=== PATIENT | female | born 1975 | race Caucasian/White ===

== ENCOUNTER → 2023-04-30 | Outpatient (CLI) | payer MEDICARE, MEDICAID, SELFPAY ==
[2023-04-30 17:41] LABS: Hematocrit 37.4 % (37-47); Hemoglobin 11.5 g/dL (12.0-15.0); Mean Corp Hgb Conc 30.7 g/dL (32-36); Mean Corpuscular Hgb 27.9 pg (27.0-32.0); Mean Corpuscular Volume 90.8 fL (81-99); Mean Platelet Vol. 10.7 fl (6.2-12.0); Platelet Count 368 K/mm3 (150-450); RBC Distribution Width CV 14.3 % (11.6-14.6); Red Blood Count 4.12 M/mm3 (4.2-5.4); White Blood Count 4.8 K/mm3 (4.4-11.0)
[2023-04-30 18:12] LABS: ALB/GLOB Ratio 0.8 RATIO (0.9-2.4); AST(SGOT) 9 U/L (15-37); Alanine Aminotransfer ALT/SGPT 17 U/L (13-56); Albumin, Serum 3.3 g/dL (3.2-5.0); Alkaline Phosphatase 70 U/L (45-117); Anion Gap 3 (5-15); BUN 8 mg/dL (7-18); BUN/Creat Ratio 10.9 RATIO (10-20); CPK Total, Creatine Kinase 81 U/L (26-192); Calcium,Total 8.8 mg/dL (8.5-10.1); Chloride 109 mmol/L (98-107); Creatinine, Serum 0.73 mg/dL (0.55-1.02); EST Glomerular Filtration Rate 90 mL/min (>60); Est Glom Filt Rate - Afr Amer 109 mL/min (>60); Free T3 2.6 pg/mL (2.18-3.98); Glucose 108 mg/dL (74-106); Magnesium 2.2 mg/dL (1.6-2.6); Potassium 4.2 mmol/L (3.5-5.1); Protein, Total 7.3 g/dL (6.4-8.2); Sodium Level 138 mmol/L (136-145); T4 Free Direct 0.72 ng/dL (0.76-1.46); Thyroid Stim Hormone (TSH) 0.77 uIU/mL (0.358-3.74)
[2023-04-30 18:35] LABS: Vitamin B12 323 pg/mL (211-911)
[2023-05-03 12:09] LABS: Vitamin D 1,25-Dihydroxy 81.4 pg/mL (24.8-81.5)
[2023-05-03 19:07] LABS: Myoglobin, Serum 26 ng/mL (25-58)
== END | disposition home or self-care (01) ==
LOC: MTLAB 16:38
PROVIDERS: Referring Provider Psychiatry & Neurology Neurology; Visit Provider Psychiatry & Neurology Neurology
DX: R25.2 Cramp and spasm (principal); R26.9 Unspecified abnormalities of gait and mobility; R53.83 Other fatigue
CPT/HCPCS: 36415; 80053; 82550; 82607; 82652; 82746; 83735; 83874; 84425; 84439; 84443; 84481; 85027; 86140

== ENCOUNTER → 2023-06-19 | Outpatient (CLI) | payer MEDICARE, MEDICAID, SELFPAY ==
--- NOTE | 2023-06-19 13:22 | MRI_ITS ---
EXAM: MR LUMBAR SPINE WITHOUT INTRAVENOUS CONTRAST CLINICAL INDICATION: evaluate gait disorder TECHNIQUE: Multiplanar and multisequence MR images of the lumbar spine without intravenous contrast. COMPARISON: None. FINDINGS: VERTEBRAE: Unremarkable. Vertebral body heights are preserved. Normal vertebral bodies and posterior elements. Normal alignment. No spondylolisthesis. There is preservation of the normal lumbar lordosis. SPINAL CORD: Unremarkable. Normal position and signal intensity of the conus medullaris. SOFT TISSUES: Unremarkable. DISCS/SPINAL CANAL/NEURAL FORAMINA: T12-L1: Normal disc height and morphology. Normal bilateral facet joints. Normal central canal. Normal bilateral lateral recesses. Normal intervertebral neural foramina. L1-2: Normal disc height and morphology. Normal bilateral facet joints. Normal central canal. Normal bilateral lateral recesses. Normal intervertebral neural foramina. L2-3: Disc dehydration. Small, central, noncompressive disc protrusion. No canal or foraminal stenosis. L3-4: Disc dehydration. Normal bilateral facet joints. Normal central canal. Normal bilateral lateral recesses. Normal intervertebral neural foramina. L4-5: Disc dehydration and mild disc space narrowing. Mild, noncompressive spondylotic bar. Normal bilateral facet joints. Normal central canal. Normal bilateral lateral recesses. Normal intervertebral neural foramina. L5-S1: Disc dehydration. Left paracentral annular fissure. Normal bilateral facet joints. Normal central canal. Normal bilateral lateral recesses. Normal intervertebral neural foramina. MRI/Spine Lumbar (Routine) IMPRESSION: Noncompressive L2-3 disc protrusion. L5-S1 annular fissure. Electronically Signed: Bell Villavicencio MD at 18:33 EST Reading Location ID and State: [id number] / Tel , Service support ,
--- NOTE | 2023-06-19 14:02 | MRI_ITS ---
INDICATION: evaluate for multiple sclerosis EXAMINATION: MRI - MR Brain WO/W Contrast TECHNIQUE: Multiplanar and multisequence MR images of the brain were obtained without and with gadolinium. IV Contrast Dosage and Agent: clariscan 19ml iv COMPARISON: None. FINDINGS: BRAIN AND EXTRA-AXIAL SPACES: No intracranial mass, mass effect, or midline shift. No hemorrhage, territorial infarct or acute ischemia. White matter is unremarkable. No evidence of demyelination. Ventricles are normal in size. Basal cisterns are unremarkable. SELLA: Pituitary gland is normal in height. Signal hyperintensity in the posterior pituitary gland is consistent with normal neural hypophysis. AUDITORY SYSTEM: Unremarkable. BONES/JOINTS: Unremarkable. SINUSES: Unremarkable as visualized. Clear. MASTOID AIR CELLS: Unremarkable as visualized. Clear. ORBITS: Unremarkable as visualized. VASCULATURE: Normal flow voids in the major intracranial circulation. MRI/Brain W/WO Contrast IMPRESSION: Negative contrast enhanced MRI brain. Electronically Signed: Bell Villavicencio MD at 17:01 EST Reading Location ID and State: [id number] / Tel , Service support ,
== END | disposition home or self-care (01) ==
LOC: MRI 13:17
PROVIDERS: Referring Provider Psychiatry & Neurology Neurology; Visit Provider Psychiatry & Neurology Neurology
DX: R26.9 Unspecified abnormalities of gait and mobility (principal)
CPT/HCPCS: 70553; 72148; A9575

== ENCOUNTER → 2023-07-01 | Outpatient (CLI) | payer MEDICARE, MEDICAID, SELFPAY ==
--- NOTE | 2023-07-01 | CYSPIN_PTH ---
PATHOLOGY RESULTS PATIENT: SHRAVAN DAVENPORT LOC: [facility] U#:[id number] AGE/SX: 47/F ROOM: RE07/01/[address]: Dr. Leonardo Roberson MD : 1975 BED: DIS: 07/01/2023 SPEC #: [id number] RECD: 07/01/23 11:36 STATUS: CHASITY QUINONES #: [id number] KIM: 07/01/23 00:[address]: Leonardo Roberson DEPT: CYTOLOGY RECD BY: Sole Albarado ENTERED: 07/01/23 11:39 SP TYPE: CYSPIN FL OTHR DR: No Primary Care Phys Tissues: Cerebrospinal Fluid Procedures: Pap Stain (control) Special Stain Group II Cytospin Fluid HEADER OPERATION: Not noted PRE-OP DIAGNOSIS: Abnormalities of gait and mobility TISSUE SUBMITTED: Cerebrospinal fluid for cytology DIAGNOSIS CYTOLOGY Cerebrospinal fluid for cytology (cytospin): Paucicellular specimen, rare lymphocytes and benign lining epithelial cells are noted. SJ:foster 07/01/2023 COMMENT Case has been reviewed in consultation with Dr. Guzman who concurs with the above diagnosis. IDC:AM CYTOLOGY STUDY Slides are reviewed. CYTOLOGY GROSS Received is 2 ml of clear fluid labeled with the patient's name and and designated per the requisition as CSF. Submitted for cytology preparation. / foster 07/01/2023 TC:4 CPT: 41137
--- NOTE | 2023-07-01 09:03 | RAD_ITS ---
PROCEDURE: Fluoroscopic guided Lumbar Puncture. DATE: July 01, 2023. CLINICAL INDICATION: Gait abnormalities. PHYSICIAN: Lazaro Ford M.D. MEDICATIONS: 1% lidocaine administered subcutaneously for local anesthesia. ACCESS SITE: Lower posterior back. NEEDLE: 22-gauge spinal needle. SPECIMEN: Approximately 12 mL clear]CSF fluid. FLUOROSCOPY TIME (if supplied): (1:07) minutes/seconds. 28.01 mGy COMPLICATIONS: None immediate. The risks, benefits, and alternatives to the procedure were explained to the patient. The specific risks of bleeding, infection, and neurovascular injury were detailed and accepted. Witnessed informed consent was obtained. The patient was placed on the fluoroscopic table in the prone position. The level for needle entry was determined and marked. The overlying skin was cleaned and prepped in the usual sterile fashion. 2% lidocaine was administered subcutaneously for local anesthesia. Under fluoroscopic guidance a 22-gauge spinal needle was advanced. The thecal sac was entered at the L3- L4 vertebral level. The inner stylet was removed. There was spontaneous flow of clear CSF fluid. The patient was placed in a reversed Trendelenburg position. Approximately 12 mL of cerebrospinal fluid was collected using gravity. The specimen was collected and submitted to the laboratory for further evaluation. The needle was withdrawn,. Hemostasis was achieved and a sterile dressing placed. The patient tolerated the procedure well without any immediate complications. The patient was placed supine with head elevated and returned to the floor in stable condition. RAD/Dx Lumbar Puncture w/IMG Guide IMPRESSION: Successful fluoroscopic-guided lumbar puncture. Electronically Signed: Lazaro Ford MD at 13:04 EST ,
--- OUTSIDE RECORDS SUMMARY | 2023-07-01 09:11 | XMS RPT_ITS | CCD ---
Author Name Unknown Address [address] [place] [address] Organization [facility] Care Team Providers [employer] Name Role Phone No, Physician Unavailable Unavailable Lm Rae Admitting Unavailable Lm Rae Attending Unavailable Baddosandrine, Leonardo Almendarez Admitting Unavailable Baddour, Leonardo Almendarez Attending Unavailable Baddour, Leonardo Almendarez Admitting Unavailable Baddour, Leonardo Almendarez Attending Unavailable Baddosandrine, Leonardo Almendarez Admitting Unavailable Baddour, Leonardo Almendarez Attending Unavailable Baddour, Leonardo Almendarez Admitting Unavailable Baddour, Leonardo Almendarez Attending Unavailable Baddosandrine, Leonardo Almendarez Admitting Unavailable Baddosandrine, Leonardo Almendarez Attending Unavailable Jonatan Gordillo Admitting Unavailable Jonatan Gordillo Attending Unavailable Fortune, Jeaneth Osborne Admitting Unavailable Fortune, Jeaneth Osborne Attending Unavailable No, Physician Primary Care Provider UnavailLeonardo Figueroa Primary Care Provider Eun Bar Primary Care Provider DIPIKAEUN POND Primary Care Unavailable [facility] Eun SNYDER Primary Care Provider Mitali Liao MD Unavailable Nohemi Flores MD Unavailable Fer BREWER DO, W. Don Unavailable [phone] Leonardo Roberson MD Unavailable [phone] Karlo Doherty Jr. Primary Care Provide r Shawn Pickens Unavailable Leonardo Roberson MD Unavailable [phone] Abigail Perez DO Unavailable Leonardo Roberson MD Unavailable Santos PAGE, Stefan Unavailable [facility] Primary Care Provider [phone] Nelia PAGE, Shawn Unavailable Chas Thomas DO, David G Unavailable Mitali Liao MD Unavailable Nohemi Flores MD Unavailable Fer BREWER DO, W. Don Unavailable Leonardo Roberson MD Unavailable Chas Thomas DO, David Grant Primary Care Pro vider Stefan Graham MD Unavailable Nelia PGAE, Shawn Unavailable Karlo Doherty Jr. Primary Care Provide r Joshua Pickensa M Unavailable Leonardo Roberson MD Unavailable Abigail Perez DO Unavailable [phone] Leonardo Roberson MD Unavailable [phone] Stefan Graham MD Unavailable [facility] Primary Care Provider Nelia PAGE, Shawn Unavailable Chas Thomas DO, David G Unavailable [phone] Stefan Graham MD H Unavailable [phone] ABIGAIL PEREZ Referring Unavailabl KARLO Fletcher JR Primary Care Unava ilable ABIGAIL PEREZ Attending Unavailabl e ABIGAIL PEREZ Referring Unavailabl e KARLO DOHERTY JR Primary Care Unava ilable KARLO DOHERTY JR Primary Care Unava ilable BRITNEY ZAMUDIO Referring Unavailable ABIGAIL PEREZ Attending Unavailabl BRYCE Rausch Primary Care Unavailabl e GOTA, BRITNEY E Referring Unavailable JOJO MCKEON Referring Unavailable MATEOHANNASANDER , KARLO RYAN Primary Care Unava ilable STAINBROOK JR, KARLO SHELBY Primary Care Unava ilable STAINBROOK JR, KARLO SHELBY Primary Care Unava ilable ABIGAIL PEREZ Referring Unavailabl e COURSON, ABIGAIL MATHEW Referring Unavailabl e STAINBROOK JR, KARLO SHELBY Primary Care Unava ilable ABIGAIL PEREZ Referring Unavailabl e ELEUTERIO HARDY Attending Unavailable MATEOHANNAGA , KARLO SHELBY Primary Care Unava ilable Pending, Provider Primary Care Unavailable Deena Ramírez Attending Unavaila ble DIPIKA, EUN Referring Unavailable GHALIBJOSHUAA Attending Unavailable DIPIKA, EUN Primary Care Unavailable ALYSHA BARKSDALE Attending Unavailable ALYSHA BARKSDALE Referring Unavailable DIPIKA, EUN Primary Care Unavailable GHALIB, SHAWN Attending Unavailable GHALIB, SHAWN Referring Unavailable DIPIKA, EUN Primary Care Unavailable GONZALEZ TAYLOR Attending Unavailable GHALIB, SHAWN Referring Unavailable DIPIKA, EUN Primary Care Unavailable DIPIKA, EUN Primary Care Unavailable GHALIB, SHAWN Attending Unavailable DIPIKA, EUN Primary Care Unavailable SELF, SELF Referring Unavailable DIPIKA, EUN Primary Care Unavailable SACHI NUÑEZ Attending Unavailable SACHI NUÑEZ Referring Unavailable MITALI IBARRA Attending Unavailable DIPIKA, EUN Primary Care Unavailable MITALI IBARRA Referring Unavailable DIPIKA, EUN Primary Care Unavailable DEENA RAMÍREZ Attending Unavailable MITALI IBARRA Referring Unavailable DIPIKA, EUN Primary Care Unavailable SHAUNA CALDERON Attending Unavailable SHAUNA CALDERON Referring Unavailable DIPIKA, EUN Primary Care Unavailable MITALI IBARRA Referring Unavailable MITALI IBARRA Attending Unavailable MARION KOROMA Attending Unavailable DIPIKA, EUN Primary Care Unavailable SELF, SELF Referring Unavailable MARION KOROMA Attending Unavailable MARION KOROMA Referring Unavailable DIPIKA, EUN Primary Care Unavailable KARLO DOHERTY JR, JR Referring Unavaila ble DIPIKA, EUN Primary Care Unavailable CHAS RIVERO JR, KARLO Attending Unavaila ble DIPIKA, EUN Primary Care Unavailable SELF, SELF Referring Unavailable KARLO DOHERTY JR, JR Attending Unavaila ble AMURAO, SABINO Referring Unavailable DIPIKA, EUN Primary Care Unavailable MITALI IBARRA Attending Unavailable DIPIKA, EUN Primary Care Unavailable MITALI IBARRA Attending Unavailable MITALI IBARRA Referring Unavailable DIPIKA, EUN Primary Care Unavailable KARLO DOHERTY JR, JR Attending Unavaila ble KARLO DOHERTY JR, JR Referring Unavaila ble DIPIKA, EUN Primary Care Unavailable MITALI IBARRA Attending Unavailable DIPIKA, EUN Primary Care Unavailable MITALI IBARRA Referring Unavailable Yanni PAGE, Mitali Barreto Unavailable [phone] Nohemi Flores MD Unavailable Fer BREWER DO, W. Don Unavailable [phone] Leonardo Roberson MD Unavailable [phone] No, Physician Primary Care Provider UnavailLeonardo Figueroa MD Unavailable Stefan Graham MD [facility] Provider Nelia PAGE, Shawn Unavailable Chas Thomas DO, David G Unavailable [phone] NO, PHYSICIAN Primary Care Unavailable MTIALI LIAO Attending Unavailable MAURY CASTILLO Attending Unavailab courtney RIVERA, PHYSICIAN Primary Care Unavailable NO, PHYSICIAN Primary Care Unavailable ARUNA QUINONES Attending Unavailable KOBY HECTOR Attending Unavailable NO, PHYSICIAN Primary Care Unavailable PUJA LO Attending Unavailludin limon NO, PHYSICIAN Primary Care Unavailable MAURY CASTILLO Attending Unavailab MAURY Anderson Admitting Unavailab courtney RIVERA, PHYSICIAN Primary Care Unavailable Allergies Allergy Classification Reported Allergen(s) Allergy Type Date of Onset Reaction(s) Facility (6 sources) Azithromycin Drug Allergy 02-19-2022 [facility] Medications Current Medications Medication Drug Class(es) Dates Sig (Normalized) Sig (Original) acetaminophen 325 mg / HYDROcodone bitartrate 5 mg oral tablet (4 sources) Opioid Agonist Start: 11-05-2018 End: 11-12-2018 take 1 tablet by mouth every six hours as needed for pain, then take 5 tablets by mouth as needed for pain HYDROcodone-acetam inophen (NORCO) 5-325 mg per tablet Indications: Chronic tonsillitis Take 1 (one) tablet by mouth every 6 (six) hours as needed for pain (Days supply per fill: 5) Post operative pain management . 20 tablet 0 11/05/2018 11/12/2018 Active Completed/Discontinued Medications Medication Drug Class(es) Dates Sig (Normalized) Sig (Original) acetylcholine 10% solution - [facility] (4 sources) Start: 07-21-2021 acetylcholine 10% solution - [facility] ALPRAZolam 1 mg oral tablet (9 sources) Benzodiazepine End: 10-16-2018 take 1 tablet by mouth twice daily ALPRAZolam (XANAX) 1 MG tablet Take 1 mg by mouth 2 (two) times a day 0 10/16/2018 Discontinued azithromycin 250 mg oral tablet (5 sources) Macrolide Antimicrobial Start: 09-19-2021 azithromycin (ZITHROMAX) 250 mg tablet Take by mouth as directed. TAKE 2 TABLETS BY MOUTH TODAY, THEN TAKE 1 TABLET DAILY FOR 4 DAYS 0 09/19/2021 Active Problems Active Problems Problem Classification Problem Date Documented Date Episodic/Chronic Acute and chronic tonsillitis (20 sources) Chronic tonsillitis; Translations: [Chronic tonsillitis] Onset: 08-18-19 19 08-18-2018 Chronic Allergic reactions (1 source) Allergic bronchopulmonary aspergillosis; Translations: [Allergic bronchopulmonary aspergillosis] Chronic Anxiety disorders (7 sources) Anxiety disorder; Translations: [Anxiety disorder, unspecified] Onset: 05-20-20 18 05-20-2018 Chronic Asthma (11 sources) Asthmatic bronchitis; Translations: [Unspecified asthma, uncomplicated] Onset: 11-30-19 Chronic Cardiac dysrhythmias (1 source) Supraventricular tachycardia; Translations: [Supraventricular tachycardia] Chronic Chronic obstructive pulmonary disease and bronchiectasis (1 source) Acute exacerbation of chronic obstructive airways disease; Translations: [Chronic obstructive pulmonary disease with (acute) exacerbation] Chronic Complication of device; implant or graft (1 source) Leakage of breast implant; Translations: [Leakage of breast prosthesis and implant, initial encounter] 02-20-2023 Episodic Deficiency and other anemia (1 source) Iron deficiency anemia; Translations: [Other iron deficiency anemias] Episodic Disorders of lipid metabolism (20 sources) Hyperlipidemia; Translations: [Hyperlipidemia, unspecified] Onset: 07-04-19 21 07-04-2020 Chronic Esophageal disorders (1 source) Gastroesophageal reflux disease; Translations: [Gastroesophageal reflux disease, esophagitis presence not specified] Chronic Gastrointestinal hemorrhage (1 source) Rectal hemorrhage; Translations: [Rectal bleeding] Episodic Genitourinary symptoms and ill-defined conditions (5 sources) Delay when starting to pass urine; Translations: [Hesitancy of micturition] Onset: 11-27-19 Episodic Immunizations and screening for infectious disease (1 source) Viral screening status; Translations: [Encounter for screening for other viral diseases] Episodic Inflammation; infection of eye (except that caused by tuberculosis or sexually transmitteddisease) (7 sources) Bilateral punctate keratitis of eyes; Translations: [Punctate keratitis, bilateral] Onset: 12-04-19 19 12-03-2018 Chronic Miscellaneous mental health disorders (1 source) Crying; Translations: [Other symptoms and signs involving emotional state] Episodic Mood disorders (17 sources) Depressive disorder; Translations: [Major depressive disorder, single episode, unspecified] Onset: 03-06-20 21 03-06-2021 Chronic Mycoses (1 source) Candidiasis; Translations: [Candidiasis, unspecified] Episodic Nutritional deficiencies (20 sources) 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; Translations: [Adult osteomalacia due to malabsorption] Onset: 02-23-20 Chronic Osteoarthritis (20 sources) Bilateral osteoarthritis of feet; Translations: [Primary osteoarthritis, right ankle and foot] Onset: 07-04-19 22 07-04-2021 Chronic Other and unspecified benign neoplasm (4 sources) Benign neoplasm of pituitary gland and craniopharyngeal duct; Translations: [Benign neoplasm of pituitary gland and craniopharyngeal duct (pouch) (HCC)] Episodic Other bone disease and musculoskeletal deformities (1 source) Lesion of bone of right hand; Translations: [Disorder of bone, unspecified] Episodic Other circulatory disease (16 sources) Raynaud's disease; Translations: [Raynaud's syndrome without gangrene] Onset: 07-04-19 22 07-04-2021 Chronic Other circulatory disease (1 source) Acrocyanosis; Translations: [Other specified peripheral vascular diseases] Chronic Other circulatory disease (1 source) Other specified peripheral vascular diseases; Translations: [Acrocyanosis (HCC)] Onset: 09-21-19 Chronic Other circulatory disease (3 sources) Raynaud's syndrome without gangrene; Translations: [Raynaud's disease without gangrene] Onset: 07-04-19 Chronic Other circulatory disease (3 sources) Vascular disorder; Translations: [Unspecified disorder of circulatory system] Episodic Other circulatory disease (1 source) Orthostatic hypotension; Translations: [Orthostatic hypotension] Episodic Other connective tissue disease (1 source) Periarthritis; Translations: [Inflammation around joint] Episodic Other connective tissue disease (3 sources) Muscle pain; Translations: [Myalgia, unspecified site] Episodic Other connective tissue disease (1 source) Pain in right hand; Translations: [Pain in right hand] Episodic Other endocrine disorders (20 sources) Hyperprolactinemia; Translations: [Hyperprolactinemia] Onset: 03-16-20 19 07-21-2021 Chronic Other endocrine disorders (16 sources) Rathke's pouch cyst; Translations: [Other disorders of pituitary gland] Onset: 03-16-20 19 03-16-2019 Chronic Other endocrine disorders (4 sources) Other disorders of pituitary gland; Translations: [Other disorders of pituitary gland] Onset: 03-16-20 Chronic Other endocrine disorders (1 source) Hyperprolactinemia; Translations: [Hyperprolactinemia] Onset: 03-16-20 Chronic Other eye disorders (7 sources) Anisocoria; Translations: [Anisocoria] Onset: 07-21-19 22 07-21-2021 Chronic Other gastrointestinal disorders (2 sources) Chronic idiopathic constipation; Translations: [Chronic idiopathic constipation] Onset: 11-27-19 Chronic Other gastrointestinal disorders (1 source) Chronic idiopathic constipation; Translations: [Chronic idiopathic constipation] Onset: 11-27-19 Chronic Other gastrointestinal disorders (2 sources) Constipation; Translations: [Constipation, unspecified] Episodic Other inflammatory condition of skin (16 sources) Psoriatic arthritis; Translations: [Arthropathic psoriasis, unspecified] Onset: 08-23-19 22 08-22-2021 Chronic Other inflammatory condition of skin (2 sources) Arthropathic psoriasis, unspecified; Translations: [Arthropathic psoriasis, unspecified] Onset: 08-23-19 Chronic Other lower respiratory disease (8 sources) Interstitial lung disease; Translations: [Interstitial pulmonary disease, unspecified] Onset: 10-12-19 Chronic Other lower respiratory disease (2 sources) Interstitial pulmonary disease, unspecified; Translations: [Interstitial pulmonary disease, unspecified] Onset: 02-01-20 Chronic Other lower respiratory disease (6 sources) Dyspnea on exertion; Translations: [Dyspnea, unspecified] Onset: 09-30-19 Episodic Other nervous system disorders (17 sources) Autonomic neuropathy; Translations: [Disorder of the autonomic nervous system, unspecified] Onset: 03-06-20 21 03-06-2021 Chronic Other nervous system disorders (1 source) Disorder of autonomic nervous system; Translations: [Disorder of the autonomic nervous system, unspecified] Chronic Other nervous system disorders (4 sources) Small fiber neuropathy; Translations: [Polyneuropathy, unspecified] Onset: 10-25-1910-24-2021 Chronic Other nervous system disorders (1 source) Polyneuropathy, unspecified; Translations: [Small fiber neuropathy] Onset: 10-25-19 Chronic Other nervous system disorders (1 source) Disorder of the autonomic nervous system, unspecified; Translations: [Autonomic dysfunction] Onset: 09-30-19 Chronic Other nervous system disorders (1 source) Postoperative pain ; Translations: [Post-tonsillectomy pain] Episodic Other nervous system disorders (1 source) History of clinical finding in subject; Translations: [Personal history of other diseases of the nervous system and sense organs] Episodic Other non-traumatic joint disorders (15 sources) Hip pain; Translations: [Pain in right hip] Onset: 07-04-19 22 07-04-2021 Episodic Other nutritional; endocrine; and metabolic disorders (14 sources) Obese class I; Translations: [Obesity, unspecified] Onset: 09-01-19 21 08-31-2020 Chronic Other screening for suspected conditions (not mental disorders or infectious disease) (18 sources) Plain X-ray result abnormal; Translations: [Abnormal findings on diagnostic imaging of other specified body structures] Onset: 07-04-19 22 07-04-2021 Chronic Residual codes; unclassified (9 sources) Tobacco user; Translations: [Tobacco Abuse] Onset: 07-04-19 21 07-04-2020 Chronic Residual codes; unclassified (1 source) Family history of cancer of colon; Translations: [Family history of colon cancer] Episodic Residual codes; unclassified (3 sources) Pain; Translations: [Pain, unspecified] Onset: 06-03-20 Episodic Residual codes; unclassified (1 source) Livedo reticularis; Translations: [Pallor] Episodic Residual codes; unclassified (1 source) Impaired exercise tolerance; Translations: [Other general symptoms and signs] Episodic Residual codes; unclassified (3 sources) Family history of ischemic heart disease and other diseases of the circulatory system; Translations: [Family hx of ischem heart dis and oth dis of the circ sys] Onset: 07-24-19 Episodic Spondylosis; intervertebral disc disorders; other back problems (20 sources) Degeneration of lumbar intervertebral disc; Translations: [Other intervertebral disc degeneration, lumbar region] Onset: 07-04-19 Chronic Spondylosis; intervertebral disc disorders; other back problems (20 sources) Lumbago with sciatica, unspecified side; Translations: [Backache] Onset: 07-04-1907-04-2021 Episodic Substance-related disorders (12 sources) Tobacco dependence syndrome; Translations: [Nicotine dependence, cigarettes, with unspecified nicotine-induced disorders] Onset: 11-30-19 Chronic Systemic lupus erythematosus and connective tissue disorders (18 sources) Keratoconjunctivitis sicca; Translations: [Sicca syndrome with keratoconjunctivitis] Onset: 07-04-1907-04-2021 Chronic Thyroid disorders (20 sources) Hypothyroidism; Translations: [Hypothyroidism, unspecified] Onset: 09-01-1903-06-2021 Chronic Unclassified (3 sources) Patient encounter status; Translations: [Pre-operative cardiovascular examination] Unclassified (1 source) Functional finding; Translations: [Problems with swallowing and mastication] Unclassified (1 source) ERRONEOUS ENCOUNTER--DISREGARD Past or Other Problems Problem Classification Problem Date Documented Da te Episodic/Chronic Abdominal pain (8 sources) Generalized abdominal pain; Translations: [Generalized abdominal pain] Onset: 12-17-2022 12-17-2022 Episodic Blindness and vision defects (10 sources) Blurring of visual image; Translations: [Other visual disturbances] Onset: 05-20-2018 Episodic Cardiac dysrhythmias (20 sources) Palpitations; Translations: [Palpitations] Onset: 07-04-2020 07-04-2020 Episodic Conditions associated with dizziness or vertigo (10 sources) Dizziness; Translations: [Dizziness and giddiness] Onset: 08-04-2021 Episodic Deficiency and other anemia (10 sources) Normocytic normochromic anemia; Translations: [Anemia, unspecified] Onset: 07-25-2021 Resolved: 01-31-2022 08-22-2021 Episodic Deficiency and other anemia (7 sources) Anemia; Translations: [Anemia, unspecified] Onset: 07-25-2021 Episodic Deficiency and other anemia (2 sources) Anemia, unspecified; Translations: [Anemia, unspecified] Onset: 01-31-2022 Episodic Diabetes mellitus without complication (20 sources) Ketonuria; Translations: [Acetonuria] Onset: 07-25-2021 Resolved: 01-31-2022 07-25-2021 Episodic Diseases of mouth; excluding dental (20 sources) Xerostomia; Translations: [Disturbances of salivary secretion] Onset: 07-04-2021 07-04-2021 Episodic Diseases of white blood cells (20 sources) Leukopenia; Translations: [Decreased white blood cell count, unspecified] Onset: 07-04-2021 Resolved: 07-25-2021 07-25-2021 Chronic Fluid and electrolyte disorders (14 sources) Hyponatremia; Translations: [Hypo-osmolality and hyponatremia] Onset: 07-25-2021 07-25-2021 Episodic Headache; including migraine (7 sources) Generalized headache; Translations: [Generalized headaches] Onset: 05-20-2018 05-20-2018 Episodic Malaise and fatigue (20 sources) Fatigue; Translations: [Other fatigue] Onset: 07-04-2020 07-04-2020 Episodic Mood disorders (14 sources) Mood disorders Onset: 08-08-2021 Resolved: 11-06-2022 08-08-2021 Nausea and vomiting (6 sources) Nausea; Translations: [Nausea] Onset: 01-03-2022 Episodic Neoplasms of unspecified nature or uncertain behavior (7 sources) Neoplasm of pituitary gland; Translations: [Neoplasm of unspecified behavior of endocrine glands and other parts of nervous system] Onset: 02-20-2019 02-20-2019 Episodic Noninfectious gastroenteritis (8 sources) Colitis; Translations: [Noninfective gastroenteritis and colitis, unspecified] Onset: 12-17-2022 12-17-2022 Episodic Nonspecific chest pain (20 sources) Chest pain; Translations: [Chest pain, unspecified] Onset: 07-04-2020 07-04-2020 Episodic Other acquired deformities (16 sources) Defect of articular cartilage; Translations: [Other specified acquired deformities of musculoskeletal system] Onset: 07-04-2021 07-04-2021 Episodic Other acquired deformities (2 sources) Other specified acquired deformities of musculoskeletal system; Translations: [Other specified acquired deformities of musculoskeletal system] Onset: 07-04-2021 Episodic Other aftercare (16 sources) Patient encounter status; Translations: [alf (current) use of non-steroidal anti-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 (NSAID)] Onset: 07-04-2021 Resolved: 01-31-2022 07-04-2021 Episodic Other aftercare (14 sources) alf methotrexate user; Translations: [Other senior living (current) drug therapy] Onset: 08-22-2021 Resolved: 10-31-2021 08-22-2021 Episodic Other aftercare (16 sources) Long-term current use of systemic steroid; Translations: [alf (current) use of systemic steroids] Onset: 08-22-2021 Resolved: 01-31-2022 08-22-2021 Episodic Other aftercare (2 sources) alf (current) use of non-steroidal anti-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 (NSAID); Translations: [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 non-steroidal anti-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 (nsaid)] Onset: 01-31-2022 Episodic Other aftercare (2 sources) alf (current) use of systemic steroids; Translations: [alf (current) use of systemic steroids] Onset: 01-31-2022 Episodic Other and unspecified benign neoplasm (7 sources) Pituitary microadenoma; Translations: [Benign neoplasm of pituitary gland] Onset: 08-22-2018 08-22-2018 Episodic Other and unspecified benign neoplasm (7 sources) Benign neoplasm of bone; Translations: [Benign neoplasm of bone and articular cartilage, unspecified] Onset: 07-21-2021 07-21-2021 Episodic Other and unspecified benign neoplasm (16 sources) Enchondroma of hand bone; Translations: [Benign neoplasm of short bones of right upper limb] Onset: 07-04-2021 07-04-2021 Episodic Other and unspecified benign neoplasm (2 sources) Benign neoplasm of short bones of right upper limb; Translations: [Benign neoplasm of short bones of right upper limb] Onset: 07-04-2021 Episodic Other bone disease and musculoskeletal deformities (14 sources) Disorder of skeletal system; Translations: [Disorder of bone, unspecified] Onset: 07-04-2021 07-04-2021 Episodic Other circulatory disease (16 sources) H/O: cardiovascular disease; Translations: [Personal history of other diseases of the circulatory system] Onset: 07-04-2021 07-04-2021 Episodic Other circulatory disease (8 sources) Orthostatic hypotension; Translations: [Orthostatic hypotension] Onset: 09-29-2021 Episodic Other circulatory disease (2 sources) Personal history of other diseases of the circulatory system; Translations: [Personal history of other diseases of the circulatory system] Onset: 07-04-2021 Episodic Other connective tissue disease (18 sources) Other specified disorders of synovium and tendon, unspecified hip; Translations: [Other disorders of synovium, tendon, and bursa] Onset: 07-04-2021 07-04-2021 Episodic Other connective tissue disease (14 sources) Pain in both feet; Translations: [Pain in right foot] Onset: 07-04-2021 07-04-2021 Episodic Other connective tissue disease (16 sources) Bilateral bone spur of calcaneum; Translations: [Calcaneal spur, right foot] Onset: 07-04-2021 07-04-2021 Episodic Other connective tissue disease (14 sources) Biceps tendinitis; Translations: [Bicipital tendinitis, right shoulder] Onset: 07-04-2021 07-04-2021 Episodic Other connective tissue disease (14 sources) Tendinitis of left rotator cuff; Translations: [Other shoulder lesions, left shoulder] Onset: 07-04-2021 07-04-2021 Episodic Other connective tissue disease (16 sources) Synovial cyst of hand; Translations: [Other bursal cyst, unspecified hand] Onset: 07-04-2021 07-04-2021 Episodic Other connective tissue disease (2 sources) Calcaneal spur, right foot; Translations: [Calcaneal spur, right foot] Onset: 07-04-2021 Episodic Other connective tissue disease (2 sources) Calcaneal spur, left foot; Translations: [Calcaneal spur, left foot] Onset: 07-04-2021 Episodic Other connective tissue disease (2 sources) Other bursal cyst, unspecified hand; Translations: [Other bursal cyst, unspecified hand] Onset: 07-04-2021 Episodic Other eye disorders (7 sources) Conjunctival cyst of left eye; Translations: [Conjunctival cysts, left eye] Onset: 08-22-2018 08-22-2018 Episodic Other eye disorders (7 sources) Tear film insufficiency; Translations: [Dry eye syndrome of bilateral lacrimal glands] Onset: 11-09-2020 11-09-2020 Episodic Other eye disorders (16 sources) Dry eyes; Translations: [Dry eye syndrome of bilateral lacrimal glands] Onset: 07-04-2021 07-04-2021 Episodic Other eye disorders (2 sources) Dry eye syndrome of bilateral lacrimal glands; Translations: [Dry eye syndrome of bilateral lacrimal glands] Onset: 07-04-2021 Episodic Other gastrointestinal disorders (1 source) Dysphagia; Translations: [Dysphagia, unspecified type] Episodic Other gastrointestinal disorders (6 sources) Heartburn; Translations: [Heartburn] Onset: 01-03-2022 Episodic Other gastrointestinal disorders (7 sources) Excessive belching; Translations: [Eructation] Onset: 01-03-2022 Episodic Other gastrointestinal disorders (8 sources) Abdominal bloating; Translations: [Abdominal distension (gaseous)] Onset: 01-03-2022 Episodic Other gastrointestinal disorders (6 sources) Altered bowel function; Translations: [Change in bowel habit] Onset: 12-17-2022 12-17-2022 Episodic Other gastrointestinal disorders (2 sources) Change in bowel habit; Translations: [Change in bowel habit] Onset: 12-17-2022 Episodic Other gastrointestinal disorders (4 sources) Abdominal distension (gaseous); Translations: [Abdominal distension (gaseous)] Onset: 01-03-2022 Episodic Other inflammatory condition of skin (16 sources) Lichen planus; Translations: [Lichen planus, unspecified] Onset: 07-04-2021 07-04-2021 Episodic Other inflammatory condition of skin (2 sources) Lichen planus, unspecified; Translations: [Lichen planus, unspecified] Onset: 07-04-2021 Episodic Other injuries and conditions due to external causes (14 sources) Environment related disease; Translations: [Allergy, unspecified, sequela] Onset: 10-31-2021 Episodic Other injuries and conditions due to external causes (2 sources) Allergy, unspecified, sequela; Translations: [Allergy, unspecified, sequela] Onset: 10-31-2021 Episodic Other lower respiratory disease (17 sources) Dyspnea; Translations: [Shortness of breath] Onset: 10-11-2021 Episodic Other lower respiratory disease (10 sources) Lesion of lung; Translations: [Other disorders of lung] Onset: 10-11-2021 Episodic Other lower respiratory disease (3 sources) Shortness of breath; Translations: [SOB (shortness of breath)] Onset: 09-20-2021 Episodic Other lower respiratory disease (2 sources) Other forms of dyspnea; Translations: [Other forms of dyspnea] Onset: 05-29-2022 Episodic Other non-traumatic joint disorders (14 sources) Pain in right knee; Translations: [Pain in joint, lower leg] Onset: 07-04-2021 07-04-2021 Episodic Other non-traumatic joint disorders (9 sources) Shoulder pain; Translations: [Pain in right shoulder] Onset: 07-04-2021 07-04-2021 Episodic Other non-traumatic joint disorders (5 sources) Bilateral chronic pain of upper limbs; Translations: [Pain in right shoulder] Onset: 07-04-2021 07-04-2021 Episodic Other screening for suspected conditions (not mental disorders or infectious disease) (20 sources) Decreased vitamin D; Translations: [Other specified abnormal findings of blood chemistry] Onset: 07-25-2021 Resolved: 01-31-2022 Episodic Other skin disorders (16 sources) Eruption; Translations: [Rash and other nonspecific skin eruption] Onset: 07-04-2021 07-04-2021 Episodic Other skin disorders (6 sources) Disorder of sweat gland; Translations: [Eccrine sweat disorder, unspecified] Onset: 09-29-2021 Episodic Other skin disorders (2 sources) Rash and other nonspecific skin eruption; Translations: [Rash and other nonspecific skin eruption] Onset: 07-04-2021 Episodic Pleurisy; pneumothorax; pulmonary collapse (5 sources) Atelectasis; Translations: [Atelectasis] Onset: 09-29-2021 Episodic Pulmonary heart disease (18 sources) Pulmonary arterial hypertension; Translations: [Secondary pulmonary arterial hypertension] Onset: 10-11-2021 Resolved: 01-24-2022 Chronic Residual codes; unclassified (15 sources) Tobacco user; Translations: [Tobacco use] Onset: 07-04-2020 07-04-2020 Episodic Residual codes; unclassified (16 sources) Family history of lupus erythematosus; Translations: [Family history of diseases of the skin and subcutaneous tissue] Onset: 08-22-2021 08-22-2021 Episodic Residual codes; unclassified (1 source) Pallor; 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] Onset: 09-20-2021 Episodic Residual codes; unclassified (1 source) Other general symptoms and signs; Translations: [Exercise intolerance] Onset: 09-20-2021 Episodic Residual codes; unclassified (2 sources) Family history of diseases of the skin and subcutaneous tissue; Translations: [Family history of diseases of the skin and subcutaneous tissue] Onset: 08-22-2021 Episodic Unclassified (3 sources) Onset: 11-06-2022 Resolved: 11-06-2022 11-06-2022 Results Test Name Value Interpretation Reference Range Facil it Vital Signs Date Time Vital Sign Value Performing Clinician Facility 02-20-2023 10:10-0400 Body height 167.6 cm Maury Miguel MD Work Phone: [facility] 02-20-2023 10:10-0400 Body mass index (BMI) [Ratio] 32.28 kg/m2 Maury Miguel MD Work Phone: [facility] 02-20-2023 10:10-0400 Body weight 90.72 kg Maury Miguel MD Work Phone: [facility] 02-20-2023 10:10-0400 Diastolic blood pressure 85 mm[Hg] Maury Miguel MD Work Phone: [facility] 02-20-2023 10:10-0400 Heart rate 93 /min Maury Miguel MD Work Phone: [facility] 02-20-2023 10:10-0400 Systolic blood pressure 135 mm[Hg] Maury Miguel MD Work Phone: [facility] 12-17-2022 10:20-0400 Body height 170.2 cm Maury Castillo MD Work Phone: [facility] 12-17-2022 10:20-0400 Body mass index (BMI) [Ratio] 32.19 kg/m2 Maury Castillo MD Work Phone: [facility] 12-17-2022 10:20-0400 Body weight 93.21 kg Maury Castillo MD Work Phone: [facility] 12-17-2022 10:20-0400 Diastolic blood pressure 81 mm[Hg] Maury Castillo MD Work Phone: [facility] 12-17-2022 10:20-0400 Heart rate 74 /min Maury Castillo MD Work Phone: [facility] 12-17-2022 10:20-0400 SaO2% (BldA) [Mass fraction] 98 % Maury Castillo MD Work Phone: [facility] 12-17-2022 10:20-0400 Systolic blood pressure 118 mm[Hg] Maury Castillo MD Work Phone: [facility] 11-26-2022 11:45-0400 Body height 167.6 cm Marion Koroma [employer]AVY MOBILE EQUIPMENT REPAIRER-MACHINE ASSEMBLER Work Phone: [facility] 11-26-2022 11:45-0400 Body mass index (BMI) [Ratio] 32.28 kg/m2 Marion Koroma [employer]AV[employer] MOBILE EQUIPMENT REPAIRER-MACHINE ASSEMBLER Work Phone: [facility] 11-26-2022 11:45-0400 Body weight 90.72 kg Marion Koroma HEAVY MOBILE EQUIPMENT REPAIRER-MACHINE ASSEMBLER Work Phone: [facility] 11-26-2022 11:45-0400 Respiratory rate 18 /min Marion Koroma HEAVY MOBILE EQUIPMENT REPAIRER-MACHINE ASSEMBLER Work Phone: [facility] 03-01-2022 11:12-0400 Body height 167.6 cm Guadalupe Loera MD Work Phone: 5(785)166-286578 [place] [address] 03-01-2022 11:12-0400 Body mass index (BMI) [Ratio] 32.01 kg/m2 Guadalupe Loera MD Work Phone: [facility] 03-01-2022 11:12-0400 Body temperature 98.8 [degF] Guadalupe Loera MD Work Phone: 7(233)[phone] [place] [address] 03-01-2022 11:12-0400 Body weight 89.95 kg Guadalupe Loera MD Work Phone: 0(367)[phone] [place] [address] 03-01-2022 11:12-0400 Diastolic blood pressure 67 mm[Hg] Guadalupe Loera MD Work Phone: 5(297)598-581578 [place] [address] 03-01-2022 11:12-0400 Heart rate 108 /min Guadalupe Loera MD Work Phone: 9(202)[phone] [place] [address] 03-01-2022 11:12-0400 Respiratory rate 17 /min Guadalupe Loera MD Work Phone: 2(223)[phone] [place] [address] 03-01-2022 11:12-0400 SaO2% (BldA) [Mass fraction] 96 % Guadalupe Loera MD Work Phone: [facility] 03-01-2022 11:12-0400 Systolic blood pressure 115 mm[Hg] Guadalupe Loera MD Work Phone: [facility] 02-13-2022 15:21-0400 Body height 167.6 cm Shauna Calderon MD Work Phone: [facility] 02-13-2022 15:21-0400 Body mass index (BMI) [Ratio] 31.64 kg/m2 Shauna Calderon MD Work Phone: [facility] 02-13-2022 15:21-0400 Body temperature 96.91 [degF] Shauna Calderon MD Work Phone: [facility] 02-13-2022 15:21-0400 Body weight 88.91 kg Shauna Calderon MD Work Phone: [facility] 02-07-2022 14:05-0400 Body height 170.2 cm Maury Castillo MD Work Phone: [facility] 02-07-2022 14:05-0400 Body mass index (BMI) [Ratio] 31.58 kg/m2 Maury Castillo MD Work Phone: [facility] 02-07-2022 14:05-0400 Body weight 91.44 kg Maury Castillo MD Work Phone: [facility] 02-07-2022 14:05-0400 Diastolic blood pressure 67 mm[Hg] Maury Castillo MD Work Phone: [facility] 02-07-2022 14:05-0400 Heart rate 85 /min Maury Castillo MD Work Phone: [facility] 02-07-2022 14:05-0400 Respiratory rate 18 /min Maury Castillo MD Work Phone: [facility] 02-07-2022 14:05-0400 SaO2% (BldA) [Mass fraction] 98 % Maury Castillo MD Work Phone: [facility] 02-07-2022 14:05-0400 Systolic blood pressure 100 mm[Hg] Maury Castillo MD Work Phone: [facility] 01-31-2022 14:31-0400 Body height 167.6 cm Karlo Doherty Jr., DO Work Phone: [facility] 01-31-2022 14:31-0400 Body mass index (BMI) [Ratio] 33.25 kg/m2 Karlo Doherty Jr., DO Work Phone: [facility] 01-31-2022 14:31-0400 Body temperature 98.01 [degF] Karlo Doherty Jr., DO Work Phone: [facility] 01-31-2022 14:31-0400 Body weight 93.44 kg Karlo Doherty Jr., DO Work Phone: [facility] 01-31-2022 14:31-0400 Diastolic blood pressure 78 mm[Hg] Karlo Doherty Jr., DO Work Phone: [employer] [facility] 01-31-2022 14:31-0400 Heart rate 88 /min Karlo Doherty Jr., DO Work Phone: [facility] [employer] [facility] 01-31-2022 14:31-0400 SaO2% (BldA) [Mass fraction] 97 % Karlo Doherty Jr., DO Work Phone: [facility] 01-31-2022 14:31-0400 Systolic blood pressure 138 mm[Hg] Karlo Doherty Jr., DO Work Phone: [facility] 01-24-2022 11:16-0400 Body height 167.6 cm Sabino Barahona MD Work Phone: [facility] 01-24-2022 11:16-0400 Body mass index (BMI) [Ratio] 32.96 kg/m2 Sabino Barahona MD Work Phone: [facility] 01-24-2022 11:16-0400 Body temperature 96.69 [degF] Sabino Barahona MD Work Phone: [facility] 01-24-2022 11:16-0400 Body weight 92.63 kg Sabino Barahona MD Work Phone: [facility] 01-24-2022 11:16-0400 Diastolic blood pressure 72 mm[Hg] Sabino Barahona MD Work Phone: [facility] 01-24-2022 11:16-0400 Heart rate 105 /min Sabino Barahona MD Work Phone: [facility] 01-24-2022 11:16-0400 Respiratory rate 16 /min Sabino Barahona MD Work Phone: [facility] 01-24-2022 11:16-0400 SaO2% (BldA) [Mass fraction] 97 % Sabino Barahona MD Work Phone: [facility] 01-24-2022 11:16-0400 Systolic blood pressure 122 mm[Hg] Sabino Barahona MD Work Phone: [facility] 01-03-2022 11:20-0400 Body height 167.6 cm Crystal Medina CNP Work Phone: [facility] 01-03-2022 11:20-0400 Body mass index (BMI) [Ratio] 34.54 kg/m2 Crystal Medina MACHINE ASSEMBLER Work Phone: [facility] 01-03-2022 11:20-0400 Body weight 97.07 kg Crystal Medina CNP Work Phone: [facility] 01-03-2022 11:20-0400 Diastolic blood pressure 86 mm[Hg] Crystal Medina CNP Work Phone: [facility] 01-03-2022 11:20-0400 Heart rate 92 /min Crystal Medina CNP Work Phone: [facility] 01-03-2022 11:20-0400 SaO2% (BldA) [Mass fraction] 97 % Crystal Medina CNP Work Phone: [facility] 01-03-2022 11:20-0400 Systolic blood pressure 132 mm[Hg] Crystal Medina CNP Work Phone: [facility] 10-31-2021 15:10-0400 Body height 167.6 cm Karlo Doherty Jr., DO Work Phone: [facility] 10-31-2021 15:10-0400 Body mass index (BMI) [Ratio] 32.93 kg/m2 Karlo Doherty Jr., DO Work Phone: [facility] 10-31-2021 15:10-0400 Body temperature 98.01 [degF] Karlo Doherty Jr., DO Work Phone: [facility] 10-31-2021 15:10-0400 Body weight 92.53 kg Karlo Doherty Jr., DO Work Phone: [employer] [facility] 10-31-2021 15:10-0400 Diastolic blood pressure 84 mm[Hg] Karlo Doherty Jr., DO Work Phone: [employer] [facility] 10-31-2021 15:10-0400 Heart rate 61 /min Karlo Doherty Jr., DO Work Phone: [employer] [facility] 10-31-2021 15:10-0400 SaO2% (BldA) [Mass fraction] 97 % Karlo Doherty Jr., DO Work Phone: [employer] [facility] 10-31-2021 15:10-0400 Systolic blood pressure 132 mm[Hg] Karlo Doherty Jr., DO Work Phone: [facility] [employer] [facility] 10-13-2021 10:15-0400 Body height 167.6 cm Sabino Barahona MD Work Phone: [facility] [employer] [facility] 10-13-2021 10:15-0400 Body mass index (BMI) [Ratio] 32.93 kg/m2 Sabino Barahona MD Work Phone: [facility] 10-13-2021 10:15-0400 Body temperature 95.9 [degF] Sabino Barahona MD Work Phone: [employer] [facility] 10-13-2021 10:15-0400 Body weight 92.53 kg Sabino Barahona MD Work Phone: [employer] [facility] 10-13-2021 10:15-0400 Diastolic blood pressure 70 mm[Hg] Sabino Barahona MD Work Phone: [facility] 10-13-2021 10:15-0400 Heart rate 98 /min Sabino Barahona MD Work Phone: [facility] 10-13-2021 10:15-0400 Respiratory rate 16 /min Sabino Barahona MD Work Phone: [facility] 10-13-2021 10:15-0400 SaO2% (BldA) [Mass fraction] 97 % Sabino Barahona MD Work Phone: [facility] 10-13-2021 10:15-0400 Systolic blood pressure 118 mm[Hg] Sabino Barahona MD Work Phone: [facility] 09-29-2021 14:06-0400 Body height 167.6 cm Eleuterio Hardy HEAVY MOBILE EQUIPMENT REPAIRER.MACHINE ASSEMBLER Work Phone: [facility] 09-29-2021 14:06-0400 Body weight 90.72 kg Eleuterio Hardy HEAVY MOBILE EQUIPMENT REPAIRER.MACHINE ASSEMBLER Work Phone: [facility] 09-29-2021 14:06-0400 Diastolic blood pressure 82 mm[Hg] Eleuterio Hardy HEAVY MOBILE EQUIPMENT REPAIRER.MACHINE ASSEMBLER Work Phone: [facility] 09-29-2021 14:06-0400 Heart rate 90 /min Eleuterio Hardy HEAVY MOBILE EQUIPMENT REPAIRER.MACHINE ASSEMBLER Work Phone: [facility] 09-29-2021 14:06-0400 Systolic blood pressure 133 mm[Hg] Eleuterio Hardy HEAVY MOBILE EQUIPMENT REPAIRER.MACHINE ASSEMBLER Work Phone: [facility] 09-20-2021 14:16-0400 Body height 167.6 cm Abigail Perez DO Work Phone: [facility] 09-20-2021 14:16-0400 Body weight 90.72 kg Abigail Perez DO Work Phone: [facility] 08-08-2021 12:55-0500 Body mass index (BMI) [Ratio] 32.17 kg/m2 Gonzalez Taylor MD Work Phone: [facility] 08-08-2021 12:55-0500 Body temperature 96.49 [degF] Gonzalez Taylor MD Work Phone: [facility] 08-08-2021 12:55-0500 Body weight 90.4 kg Gonzalez Taylor MD Work Phone: [facility] 08-08-2021 12:55-0500 Diastolic blood pressure 63 mm[Hg] Gonzalez Taylor MD Work Phone: [facility] 08-08-2021 12:55-0500 Heart rate 66 /min Gonzalez Taylor MD Work Phone: [facility] 08-08-2021 12:55-0500 Respiratory rate 20 /min Gonzalez Taylor MD Work Phone: [facility] 08-08-2021 12:55-0500 SaO2% (BldA) [Mass fraction] 98 % Gonzalez Taylor MD Work Phone: [facility] 08-08-2021 12:55-0500 Systolic blood pressure 111 mm[Hg] Gonzalez Taylor MD Work Phone: [facility] 03-15-2021 11:37-0400 Body height 167.6 cm Mitali Liao MD Work Phone: [facility] 03-15-2021 11:37-0400 Body mass index (BMI) [Ratio] 29.38 kg/m2 Mitali Liao MD Work Phone: [facility] 03-15-2021 11:37-0400 Body weight 82.56 kg Mitali Liao MD Work Phone: [facility] 03-15-2021 11:37-0400 Diastolic blood pressure 84 mm[Hg] Mitali Liao MD Work Phone: [facility] 03-15-2021 11:37-0400 Heart rate 144 /min Mitali Liao MD Work Phone: [facility] 03-15-2021 11:37-0400 Systolic blood pressure 135 mm[Hg] Mitali Liao MD Work Phone: [facility] 01-03-2021 14:50-0400 Body mass index (BMI) [Ratio] 29.54 kg/m2 Nohemi Flores MD Work Phone: [facility] 01-03-2021 14:50-0400 Body weight 83.01 kg Nohemi Flores MD Work Phone: [facility] 01-03-2021 14:50-0400 Diastolic blood pressure 78 mm[Hg] Nohemi Flores MD Work Phone: [facility] 01-03-2021 14:50-0400 Heart rate 112 /min Nohemi Flores MD Work Phone: [facility] 01-03-2021 14:50-0400 Systolic blood pressure 119 mm[Hg] Nohemi Flores MD Work Phone: [facility] 07-04-2020 14:12-0500 BMI (Body Mass Index) 30.34 kg/m2 Yevgeniy Casarez [facility] 07-04-2020 14:12-0500 Body weight 85.28 kg Yevgeniykevin Casarez [facility] 07-04-2020 14:12-0500 BP Diastolic 66 mm[Hg] Yevgeniy Leida [facility] 07-04-2020 14:12-0500 BP Systolic 112 mm[Hg] Yevgeniy Olivahmy [facility] 07-04-2020 14:12-0500 Height 167.6 cm Yevgeniy Leida [facility] 07-04-2020 14:12-0500 Pulse (Heart Rate) 77 /min Yevgeniy Olivahmy [facility] 07-04-2020 14:12-0500 Pulse Oximetry 98 % Yevgeniy lOivahmy [facility] 03-17-2019 12:33-0400 BP Diastolic 63 mm[Hg] [facility] 03-17-2019 12:33-0400 BP Systolic 97 mm[Hg] [facility] 03-17-2019 12:33-0400 Pulse (Heart Rate) 60 /min Ricky [facility] 03-17-2019 12:33-0400 Pulse Oximetry 95 % Ricky [facility] 03-17-2019 12:33-0400 Respiratory Rate 15 /min Ricky [facility] 03-17-2019 12:13-0400 Body Temperature 97.7 [degF] Ricky [facility] 03-17-2019 10:41-0400 BMI (Body Mass Index) 27.44 kg/m2 Ricky [facility] 03-17-2019 10:41-0400 Body weight 77.11 kg Ricky [facility] 03-17-2019 10:41-0400 Height 167.6 cm [facility] 01-29-2019 14:17-0400 BMI (Body Mass Index) 23.57 kg/m2 [facility] 14:17-0400 Body weight 70.31 kg [facility] 01-29-2019 14:17-0400 Height 172.7 cm Leonardo [facility] 11-20-2018 15:06-0400 BMI (Body Mass Index) 24.27 kg/m2 Gonzalez Juan [facility] 11-20-2018 15:06-0400 Body Temperature 98.2 [degF] Gonzalez [facility] 11-20-2018 15:06-0400 BP Diastolic 74 mm[Hg] Gonzalez [facility] 11-20-2018 15:06-0400 BP Systolic 116 mm[Hg] Gonzalez Martinez [facility] 11-20-2018 15:06-0400 Height 172.7 cm Gonzalez Juan [facility] 11-20-2018 15:06-0400 Pulse (Heart Rate) 73 /min Gonzalez Martinez [facility] 11-20-2018 15:06-0400 Weight 72.39 kg Gonzalez Martinez [facility] 11-07-2018 08:58-0400 BMI (Body Mass Index) 24.78 kg/m2 Gonzalez Juan [facility] 11-07-2018 08:58-0400 Body Temperature 97.3 [degF] Gonzalez Martinez [facility] 11-07-2018 08:58-0400 BP Diastolic 69 mm[Hg] Gonzalez Martinez [facility] 11-07-2018 08:58-0400 BP Systolic 103 mm[Hg] Gonzalez Martinez [facility] 11-07-2018 08:58-0400 Height 172.7 cm Gonzalez Martinez [facility] 11-07-2018 08:58-0400 Pulse (Heart Rate) 68 /min Gonzalez Martinez [facility] 11-07-2018 08:58-0400 Weight 73.94 kg Gonzalez Martinez [facility] 11-06-2018 07:24-0400 BMI (Body Mass Index) 24.33 kg/m2 Shanice Franco [facility] 11-06-2018 07:24-0400 Height 172.7 cm [facility] 11-06-2018 07:24-0400 Weight 72.58 kg [facility] 11-06-2018 07:16-0400 Body Temperature 98.4 [degF] Shanice [facility] 11-06-2018 07:16-0400 BP Diastolic 76 mm[Hg] Shanice [facility] 11-06-2018 07:16-0400 BP Systolic 114 mm[Hg] [facility] 11-06-2018 07:16-0400 Pulse (Heart Rate) 68 /min [facility] 11-06-2018 07:16-0400 Pulse Oximetry 96 % Shaniec [facility] 11-06-2018 07:16-0400 Respiratory Rate 16 /min Shanice [facility] 10-29-2018 10:50-0400 BP Diastolic 95 mm[Hg] Gonzalez Martinez [facility] 10-29-2018 10:50-0400 BP Systolic 138 mm[Hg] Gonzalez Martinez [facility] 10-29-2018 10:50-0400 Pulse (Heart Rate) 7 /min Gonzalez Martinez [facility] 10-29-2018 10:50-0400 Pulse Oximetry 99 % Gonzalez Martinez [facility] 10-29-2018 10:50-0400 Respiratory Rate 18 /min Gonzalez Martinez [facility] 10-29-2018 09:46-0400 Body Temperature 97.2 [degF] Gonzalez Martinez [facility] 10-29-2018 07:10-0400 BMI (Body Mass Index) 26.83 kg/m2 Gonzalez Martinez [facility] 10-29-2018 07:10-0400 Height 167.6 cm Gonzalez Martinez [facility] 10-29-2018 07:10-0400 Weight 75.4 kg Gonzalez Martinez [facility] 10-16-2018 16:29-0400 Height 170.2 cm Room [facility] 10-16-2018 16:18-0400 BP Diastolic 78 mm[Hg] [facility] 10-16-2018 16:18-0400 BP Systolic 111 mm[Hg] Room [facility] 10-16-2018 16:18-0400 Pulse (Heart Rate) 69 /min Room [facility] 10-16-2018 16:18-0400 Pulse Oximetry 98 % Room [facility] 10-09-2018 11:22-0400 BMI (Body Mass Index) 26.74 kg/m2 Gonzalez Martinez [facility] 10-09-2018 11:22-0400 Body Temperature 97.9 [degF] Gonzalez [facility] 10-09-2018 11:22-0400 BP Diastolic 77 mm[Hg] [facility] 10-09-2018 11:22-0400 BP Systolic 115 mm[Hg] Gonzalez [facility] 10-09-2018 11:22-0400 Height 167.6 cm [facility] 10-09-2018 11:22-0400 Pulse (Heart Rate) 82 /min Gonzalez Martinez [facility] 10-09-2018 11:22-0400 Weight 75.16 kg Gonzalez [facility] 09-16-2018 18:16-0400 BMI (Body Mass Index) 26.63 kg/m2 [facility] 09-16-2018 18:16-0400 Height 167.6 cm [facility] 09-16-2018 18:16-0400 Weight 74.84 kg [facility] 08-18-2018 10:32-0500 BMI (Body Mass Index) 25.99 kg/m2 Gonzalez Martinez [facility] 08-18-2018 10:32-0500 Body Temperature 97.5 [degF] [facility] 08-18-2018 10:32-0500 BP Diastolic 74 mm[Hg] Gonzalez Martinez [facility] 08-18-2018 10:32-0500 BP Systolic 120 mm[Hg] oGnzalez Martinez [facility] 08-18-2018 10:32-0500 Height 167.6 cm Gonzalez Martinez [facility] 08-18-2018 10:32-0500 Pulse (Heart Rate) 91 /min Gonzalez Martinez [facility] 08-18-2018 10:32-0500 Weight 73.03 kg Gonzalez Martinez [facility] Encounters Encounter Date Encounter Type Care Provider Facility Start: 06-28-2023 End: 06-28-2023 Emergency department patient visit PHYSICIAN [facility] Start: 06-03-2023 End: 06-03-2023 Refill Mitali Liao MD Work Phone: [facility] Start: 06-03-2023 End: 06-03-2023 Office outpatient visit 15 minutes Mitali Liao MD Work Phone: [facility] Procedures Date Procedure Procedure Detail Performing Clinician Start: 12-24-2022 Colonoscopy Mitali Liao MD Work Phone: Start: 11-26-2022 Urnls dip stick/tablet rgnt auto w/o microscopy Marion Koroma HEAVY MOBILE EQUIPMENT REPAIRER-MACHINE ASSEMBLER Work Phone: Start: 11-06-2022 Assay of free thyroxine Shawn Pickens MD Work Phone: Start: 05-29-2022 Cv strs tst xers&/or rx cont ecg trcg only Mitali Ibarra MD Work Phone: Start: 11-02-2021 PFT COMPLETE Sabino Khan MD Work Phone: Start: 08-02-2020 TTE w or w/o fol w/con,stres Yevgeniy bains Work Phone: Start: 07-04-2020 12 lead ECG Yevgeniy Casarez Work Phone: Start: 03-17-2019 Cul bact aerobic addl meths definitive ea isol Ricky Scruggs Work Phone: Start: 03-17-2019 Endoscopy of esophagus Ricky Scruggs Work Phone: Start: 03-17-2019 End: 03-17-2019 Colonoscopy Ricky Scruggs Work Phone: Start: 03-16-2019 SCAN OTHER ORDERS Provider Not In System Start: 01-22-2019 Videofluoroscopy swallow Leonardo Roberson Work Phone: Start: 09-27-2018 SCAN OTHER ORDERS Provider Not In System Start: 06-11-2018 End: 06-11-2018 Follitropin [Units/volume] in Serum or Plasma Leonardo Roberson Work Phone: Start: 06-11-2018 End: 06-11-2018 Lutropin [Units/volume] in Serum or Plasma Leonardo Roberson Work Phone: Start: 06-11-2018 End: 06-11-2018 [facility] - CORTISOL Leonardo Roberson Work Phone: Start: 06-11-2018 End: 06-11-2018 Prolactin [Mass/volume] in Serum or Plasma Leonardo Roberson Work Phone: Start: 05-30-2018 End: 05-30-2018 [facility] - CRP, C-REACTIVE PROTEIN Leonardo Roberson Work Phone: History of augmentat ion of breast S/P breast implant, silicone Maury Miguel MD Work Phone: Plan of Treatment Date Care Activity Detail Author Start: 12-31-2031 Tetanus vaccination Tetanus: Every 1 0yrs [facility] Start: 03-17-2029 Screening for malign ant neoplasm of colon [facility] Start: 12-25-2027 Screening for malign ant neoplasm of colon [facility] Start: 01-23-2024 End: 01-23-2024 Patient encounter procedure 01/23/2024 1:15 PM EDT Office Visit [place] [address] [place] [address] [facility] Start: 11-07-2023 Thyroid stimulating hormone measurement TSH [facility] Start: 09-16-2023 DIABETES SCREEN DIABETES SCREEN [facility] Start: 03-19-2023 End: 03-19-2023 Patient encounter procedure [facility] Start: 02-22-2023 Influenza vaccination O PALACIOS [facility] Start: 02-20-2023 End: 03-23-2024 MR Breast - bilateral WO contrast MRI BREAST BILATERAL WITHOUT CONTRAST Imaging Routine Leakage of breast prosthesis and implant, initial encounter Breast implant leak, initial encounter S/P breast implant, silicone Expected: 02/20/2023, Expires: 03/23/2024 [facility] Payers Date Payer Category Payer Medicaid [id number] 2015 [facility] 2015-Present [id number] .[id number] 2015 Medicaid [id number] .[id number] 2015 Medicaid [id number] [id number] .[id number] 2007 Medicare [id number] 2007 Medicare MEDICARE MEDICAR E PART A & B xxxxxxxxxxx 2007-Present [place] xxxxxxxxxxx [id number] .[id number] 2007 Medicare [id number] .[id number] 2007 Medicare [id number]. 1.13.385.2.7.3 .[id number] 1974 Unknown [id number] 2.16.840.1.394233.3.579.2.900 1974 Unknown [id number] 2.16.840.1.522644.3.579.2.106 9 1974 Unknown [id number] 2.16.840.1.089481.3.579.2.594 1974 Unknown [id number] 2.16.840.1.921180.3.579.2.594 1974 Unknown [id number] 2.16.840.1.458476.3.579.2.594 1974 Unknown [id number] 2.16.840.1.279286.3.579.2.594 1974 Unknown [id number] 2.16.840.1.248365.3.579.2.594 1974 Unknown [id number] 2.16.840.1.101185.3.579.2.594 1974 Unknown [id number] 2.16.840.1.636731.3.579.2.594 1974 Unknown [id number] 2.16.840.1.921648.3.579.2.983 1974 Unknown [id number] 2.16.840.1.276095.3.579.2.983 1974 Unknown [id number] 2.16.840.1.097780.3.579.2.983 1974 Unknown [id number] 2.16.840.1.847438.3.579.2.983 1974 Unknown [id number] 2.16.840.1.148204.3.579.2.983 1974 Unknown [id number] 2.16.840.1.032910.3.579.2.983 1974 Unknown [id number] 2.16.840.1.775759.3.579.2.983 1974 Unknown [id number] 2.16.840.1.575064.3.579.2.983 1974 Unknown [id number] 2.16.840.1.213897.3.579.2.983 1974 Unknown [id number] 2.16.840.1.889721.3.579.2.983 1974 Unknown [id number] 2.16.840.1.823666.3.579.2.983 1974 Unknown [id number] 2.16.840.1.188031.3.579.2.983 1974 Unknown [id number] 2.16.840.1.221913.3.579.2.983 1974 Unknown [id number] 2.16.840.1.699793.3.579.2.903 1974 Unknown [id number] 2.16.840.1.859283.3.579.2.903 1974 Unknown [id number] 2.16.840.1.502553.3.579.2.903 1974 Unknown [id number] 2.16.840.1.777306.3.579.2.903 1974 Unknown [id number] 2.16.840.1.964319.3.579.2.903 1974 Unknown [id number] 2.16.840.1.466121.3.579.2.903 Medicare [id number] Unknown [id number] Social History Date Type Detail Facility Start: 07-05-2015 End: 01-03-2022 Tobacco smoking status NYIS Current every day smoker [facility] Work Phone: Start: 06-24-1990 End: 11-22-2021 History of tobacco use Cigarette Smoker [facility] Work Phone: Start: 07-05-2015 End: 06-03-2023 Cigarettes smoked current (pack per day) - Reported [facility] Start: 1975 Sex Assigned At Not on file [facility] Work Phone: Start: 08-18-2018 End: 10-13-2021 Tobacco smoking status NYIS Former smoker [facility] End: 11-22-2021 History of tobacco use Current smoker [facility] Start: 03-17-2019 End: 02-20-2023 Alcohol intake Current drinker of alcohol (finding) [facility] Start: 07-04-2020 End: 12-24-2022 Tobacco use and exposure Never used [facility] Start: 07-29-2021 End: 04-05-2022 Exposure to SARS-CoV-2 (event) Not sure [facility] Exposure to SARS-CoV -2 (event) Unable to assess [facility] Start: 10-24-2020 History SDOH Alcohol Comment 1-2 times weekly [facility] Start: 1975 Sex Assigned At Female [facility] Start: 02-09-2020 History SDOH Alcohol [facility] Start: 09-20-2021 End: 12-24-2022 Tobacco smoking status NHIS Occasional tobacco smoker [facility] Start: 09-20-2021 End: 06-03-2023 Alcohol intake Ex-drinker (finding) [facility] Start: 10-13-2021 History SDOH Alcohol Comment [facility] Start: 11-06-2022 Tobacco Comment Trying to quit, 5 cigs every other day [facility] Start: 11-03-2022 End: 06-03-2023 Tobacco use panel [facility] Start: 01-29-2019 Gender identity Identifies as female gender (finding) [facility] Start: 07-03-2021 Sexual orientation Heterosexual (finding) [facility] How often to you hav e a drink containing alcohol? 2-4 times a month [facility] Average Number of Drinks Not on file [facility] Medical Equipment Procedure Code Equipment Code Equipment Origin al Text Equipment Identifier Dates Hodge Cf Capsule [id number] [facility] Start: 01-17-2022 Clinical Notes 01-03-2021 to 06-03-2023 Mitali Liao MD - 06/03/2023 9:56 AM Yasmeen Rosen LPN - 02/20/2023 10:00 AM Malu Post APRN-MACHINE ASSEMBLER - 02/20/2023 10:00 AM Jordan Miguel MD - 02/20/2023 10:00 AM EDT Note Date & Type Note Facility 06-03-2023 History of Present illness Narrative Formatting of this note is different fro m the original. [facility]G [facility] [address] [facility] [id number] Shravan Davenport is a 47 y.o. female being seen today, 06/03/23, Chief Complaint Patient presents with Left Hip - Pain Right Hip - Pain [chief complaint] bilateral hip pain left worse than right HPI Dictation: There is no diagnosis lumbar degenerative disc disease she complains of anterior thigh groin and lateral thigh pain with x-rays previously done of her pelvis no degenerative changes identified. Noted she has had symptoms for years [hpi] Physical Exam Dictation: [PE] on exam there is irritability with passive range Left worse than right Assessment and Plan Dictation: [AP] by the fact her pain has been chronic she is taken [id number] NSAIDs and recommending an MRI of her left hip meloxicam also recommended return after MRI I have reviewed all relevant histories, medications, allergies, and problem list items with Shravan Davenport during this visit. Review of Systems Constitutional: Negative for chills and fever. HENT: Negative for congestion. Respiratory: Negative for shortness of breath. Cardiovascular: Negative for chest pain. Gastrointestinal: Negative for diarrhea, nausea and vomiting. Neurological: Negative for headaches. Psychiatric/Behavioral: Negative for behavioral problems. There were no vitals taken for this visit. Imaging: No results found. 1. Bilateral hip pain MR Hip Left Without Contrast No follow-ups on file. Mitali Liao MD documented in this encounter [facility] 02-20-2023 History of Present illness Narrative Summary: Plastic Surgery New Consultation Vitals: Smoking Status Some Days Estimated body mass index is 32.28 kg/m as calculated from the following: Height as of 11/26/22: 1.676 m (5' 6 ). Weight as of 11/26/22: 90.7 kg (200 lb). Shravan Davenport ([id number]) 47 y.o. female presenting to the plastics surgery office for a consultation. Referring Provider: Self Reason for consultation: Breast implant rupture Do you have any of the following? Heart issues:Yes Lung issues: Yes History of blood clots: No Diabetes: No Nicotine use (cigarette or vaping): Yes Weight change in the last 6 months: Yes Occupation: Disabled Shravan Davenport was offered and accepted a Medical Electric Motor Assembler for this exam/procedure/test 02/20/2023. Name of Medical Electric Motor Assembler: HECTOR Brice Nicotine Dependence Use per Day: occasional Patient is ready to quit Discussed pharmacotherapy We discussed health risks and resources. Offered referral to [facility] Smoking Cessation clinic. Spent 3-5 minutes counseling on this topic Will need MRI bilateral breast to confirm implant compromise. Orders Placed This Encounter MRI BREAST BILATERAL WITHOUT CONTRAST HECTOR Paul Nurse Practitioner [facility] Plastic and Reconstructive Surgery Images from the original note were not included. HPI: I am seeing Shravan Davenport for the first time for evaluation of potential ruptured breast implant. Shravan is a 47 y.o. white female who has a past medical history of Arrhythmia, Asthma, Depression, GERD (gastroesophageal reflux disease), and Psoriatic arthritis (2022). who is status post bilateral breast augmentation by Dr. Carpenter approximately 10 years ago, originally with saline implants that had a subsequent week which were removed and replaced with gel implants (mentor smooth round moderate plus profile 575 cc placed subglandular early through an IMF incision). She states that over the last four years she has gotten sick , with an assortment of complaints, including shortness of breath that has had full workup including CT scans which demonstrated right implant rupture (intracapsular, per report). She also has been recently diagnosed with psoriatic arthritis. Her main concerns are shortness of breath, being sick , and pain, as well as the findings on CT scan. She is interested in implant removal without replacement. Since the CT scan was last performed on 10/21/2022, the patient states that she has since developed left-sided pain in addition to the right (breast). There has been no history of trauma, falls, or other events. She states that her original implants were placed as she was interested in correcting breast ptosis and deflation after and did not want the scars a mastopexy at the time. Therefore she preferred implant placement alone. Of note, the patient is an active smoker. Past medical history: The patient has a past medical history of Arrhythmia, Asthma, Depression, GERD (gastroesophageal reflux disease), and Psoriatic arthritis (2022). She has no past medical history of Pacemaker. Past surgical history: The patient has a past surgical history that includes tonsillectomy; hysterectomy total abdominal laparoscopic; tubal ligation; and orif wrist (Left). Allergies Allergen Reactions Azithromycin Damaging to the heart Medications: The patient has a current medication list which includes the following prescription(s): breztri aerosphere, breztri aerosphere, vitamin d3, clobetasol, estradiol, levothyroxine, metoprolol succinate, omeprazole, ondansetron, terconazole, venlafaxine, venlafaxine hcl, humira pen, albuterol, cyclosporin, DISABILITY PLACARD, metoprolol, metronidazole, ozempic (0.25 or 0.5 mg/dose), prednisone, ozempic (1 mg/dose), and SPACER FOR INHALER PRESCRIPTION. Social history: The patient reports that she has been smoking cigarettes. She has never used smokeless tobacco. She reports current alcohol use. She reports that she does not currently use drugs. Family history: The patient has a family history includes Diabetes in her father and paternal grandmother; Heart Disease - Other in her father; Myocardial Infarction in her father. Review of systems: Skin: The patient gives no history of hypertrophic or keloid scar formation Endocrine: The patient denies diabetes or hypertension Neuro: No history of seizures Physical exam: General: The patient is a obese female appearing her stated age. She is 167.6 cm (5' 6 ) tall and weighs She weighs 90.7 kg (200 lb). The patient has a body mass index is 32.28 kg/m .. Skin: The patient has Deng type II skin quality Extremities: Moves all extremities well Breasts: The patient's right sternal notch to nipple distance is 34 cm. The left is 34.5 cm. The patient's right nipple to IMF distance is 13 cm. The left is 15 cm. The right nipple-areolar complex diameter is 62 mm. The left is 63 mm. She has Ellsworth two capsules bilaterally. She has a 7 cm right IMF incision 1.2 cm superior to the IMF, and a 7 cm left IMF incision 1.5 cm superior to the IMF from previous implant placement. The breasts are approximately symmetric in size. She has grade 2 ptosis. Sensation is normal. She has no discrete dominant masses to palpation. Assessment: ICD-10-CM 1. Breast implant leak, initial encounter T85.43XA Metoprolol 50 MG tab regular release venlafaxine 150 MG Cap SR 24HR capsule XR MRI BREAST BILATERAL WITHOUT CONTRAST 2. Leakage of breast prosthesis and implant, initial encounter T85.43XA Metoprolol 50 MG tab regular release venlafaxine 150 MG Cap SR 24HR capsule XR MRI BREAST BILATERAL WITHOUT CONTRAST CANCELED: MRI BREAST BILATERAL WITHOUT CONTRAST 3. S/P breast implant, silicone Z98.82 Metoprolol 50 MG tab regular release venlafaxine 150 MG Cap SR 24HR capsule XR MRI BREAST BILATERAL WITHOUT CONTRAST Plan: 1. In this 40 minute visit, greater than 50% of which was dedicated to counseling, I reviewed the patient's history, physical exam, available documentation, and imaging. Based on this, I would like to see the CT scan images from [facility] and not just the report. 2. Furthermore, she has developed additional symptoms (now with pain on the left side, and not just the right) since her original CT scan from 10/21/2022. Given the sensitivity of MRI for breast implant rupture, I would like to order a diagnostic MRI to evaluate the status of her bilateral breast implants and also to help better evaluate the potential source of her pain, which is now bilateral. This was ordered today. 3. I also informed the patient in no uncertain terms that I do not perform elective surgery on active smokers or active nicotine users, and therefore complete nicotine abstinence would be required before elective surgery with objective verification with urine and/or blood test. She would have to have complete nicotine abstinence for at least 30 days prior to and after any proposed operation. She indicated understanding of this. 4. I also indicated to the patient that implant removal can not guarantee that this will affect her issues such as shortness of breath, feeling sick , or pain. However, if implants are, indeed, ruptured, scan remove the implant and any surrounding gel. She indicated understanding of this. 5. Once we get the MRI, I would like to see the patient back for follow-up where images can be reviewed and a preliminary plan discussed. If insurance does not cover her operation, a written estimate would be provided at that time. 6. If an operation was proposed, it would likely be performed at [facility] because of her comorbidities. 7. Of note, the patient states that she recently gained 50 lb. Weight changes will affect the ultimate outcome in terms of breast size and shape, especially if they are significant weight changes. She indicated understanding of this. 8. Photos taken 9. Shravan Davenport was offered and accepted a Medical Electric Motor Assembler for this exam/procedure/test 02/22/2023. Name of Medical Electric Motor Assembler: Anh Martinerick 10. No blue sheet completed at this time The above report was entered using [employer] medical dictation software. Although I have reviewed this report for accuracy, certain words and phrases may not be entered as intended. Maury Miguel MD, FACS Professor of Plastic Surgery, Neurosurgery, Neurology, and Surgery Executive Knitting Machine Operator Helper, Department of Plastic Surgery Chief of Plastic Surgery, [facility] documented in this encounter [facility] 12-17-2022 History of Present illness Narrative Formatting of this note is different fro m the original. Subjective Patient ID: Shravan Davenport is a 47 y.o. female. HPI Patient presents for abdominal issues and colitis. The patient has had long standing issues with her abdomen and bowels. She reports generalized abdominal pain intermittently. She has episodes were she will experience constant abdominal discomfort and bloating for months at a time. She reports changes in her bowel habits, with no consistency or regularity. She reports chronic constipation issues, and concern over possible dysmotility of her intestines. Patient has had a prior colonoscopy by Dr. Scruggs 03/17/2019, small external hemorrhoids otherwise normal. Prior EGD by myself in December 2021, normal. She reports she was experiencing hematuria which prompted a referral to urology as well as a CT at an outside facility. She reports she was diagnosed with an autoimmune disorder about one month ago. CTAP 12/03/22 from outside hospital: IMPRESSION: 1. Punctate nonobstructing right renal stone. 2. Left hemicolonic wall thickening, as described above, concerning for colitis. Past Medical History: Diagnosis Date Anxiety Arthritis 2021 Psoriatic Asthma Back pain Degenerative disc disease at L5-S1 level including L4 Depression Discoloration of skin of lower leg GERD (gastroesophageal reflux disease) Hypothyroidism, adult IBS (irritable bowel syndrome) with constipation Leg pain Pituitary tumor Right hand pain Past Surgical History: Procedure Laterality Date breast augmentation COLONOSCOPY N/A 03/17/2019 Procedure: COLONOSCOPY; Surgeon: Ricky Scruggs MD; [facility] [facility]; Service: Gastroenterology EGD N/A 03/17/2019 Procedure: ESOPHAGOGASTRODUODENOSCOPYwith bx; Surgeon: Ricky Scruggs MD; [facility] [facility]; Service: Gastroenterology EGD N/A 01/17/2022 Procedure: ESOPHAGOGASTRODUODENOSCOPY WITH HODGE AND BIOPSY; Surgeon: Maury Castillo MD; Location: Endo; Service: General Surgery HYSTERECTOMY 2017 OOPHORECTOMY Right PROLONGED ACID REFLUX TEST 48H PH N/A 01/17/2022 Procedure: PROLONGED ACID REFLUX TEST 48H PH; Surgeon: Maury Castillo MD; Location: Endo; Service: General Surgery TONSILLECTOMY Bilateral 10/29/2018 Procedure: TONSILLECTOMY; Surgeon: Gonzalez Martinez Jr., DO; Location: Main OR; Service: Otolaryngology WRIST SURGERY Left hardware has a current medication list which includes the following prescription(s): humira(cf) pen, albuterol, breztri aerosphere, cholecalciferol (vitamin d3), clobetasol, estradiol, levothyroxine, metoprolol tartrate, ondansetron, oxaprozin, ozempic, restasis, venlafaxine, and omeprazole. Allergies: Patient has no known allergies. Social History Socioeconomic History Marital status: Tobacco Use Smoking status: Some Days Packs/day: 0.50 Years: 10.00 Total pack years: 5.00 Types: Cigarettes Last attempt to quit: 11/22/2021 Years since quittin.0 Smokeless tobacco: Never Vaping Use Vaping Use: Never used Substance and Sexual Activity Alcohol use: Not Currently Drug use: No Family History Problem Relation Age of Onset Heart disease Father Heart attack Father 46 bypass Coronary artery disease Father Stroke Father Diabetes Father Neuropathy Father Review of Systems Constitutional: Positive for fatigue. Negative for activity change, appetite change, chills, fever and unexpected weight change. HENT: Negative for hearing loss, nosebleeds and trouble swallowing. Eyes: Negative for visual disturbance. Respiratory: Positive for shortness of breath and wheezing. Negative for cough and stridor. Cardiovascular: Positive for chest pain. Negative for leg swelling. Gastrointestinal: Positive for abdominal pain, constipation, diarrhea, nausea and vomiting. Negative for abdominal distention and blood in stool. Endocrine: Positive for cold intolerance, heat intolerance and polydipsia. Genitourinary: Positive for enuresis, frequency and hematuria. Negative for difficulty urinating and urgency. Musculoskeletal: Positive for back pain. Negative for arthralgias. Skin: Negative for rash and wound. Allergic/Immunologic: Negative for environmental allergies and food allergies. Neurological: Positive for weakness, numbness and headaches. Negative for seizures and syncope. Hematological: Negative for adenopathy. Does not bruise/bleed easily. Psychiatric/Behavioral: Positive for dysphoric mood. Negative for agitation. The patient is nervous/anxious. Objective Physical Exam Vitals reviewed. Constitutional: General: She is not in acute distress. Appearance: Normal appearance. She is well-developed. She is not diaphoretic. HENT: Head: Normocephalic and atraumatic. Right Ear: External ear normal. Left Ear: External ear normal. Nose: Nose normal. Eyes: Pupils: Pupils are equal, round, and reactive to light. Neck: Thyroid: No thyromegaly. Vascular: No JVD. Trachea: No tracheal deviation. Cardiovascular: Rate and Rhythm: Normal rate and regular rhythm. Heart sounds: Normal heart sounds. Pulmonary: Effort: Pulmonary effort is normal. No respiratory distress. Breath sounds: Normal breath sounds. Abdominal: General: Bowel sounds are normal. There is no distension. Palpations: Abdomen is soft. There is no mass. Tenderness: There is no abdominal tenderness. There is no guarding or rebound. Musculoskeletal: General: Normal range of motion. Cervical back: Normal range of motion. Skin: General: Skin is warm and dry. Neurological: General: No focal deficit present. Mental Status: She is alert. Mental status is at baseline. Cranial Nerves: No cranial nerve deficit. Psychiatric: Behavior: Behavior normal. Assessment/Plan: Diagnoses and all orders for this visit: Change in bowel habit Generalized abdominal pain Bloating Colitis Colonoscopy. Discussed details of procedure, rationale for procedure including cancer and polyp detection and removal, and potential R/B including bleeding and perforation We discussed that she is likely going to need referral and evaluation by a more advanced gastroenterology group. documented in this encounter [facility] 11-26-2022 History of Present illness Narrative Formatting of this note is different fro m the original. Chief Complaint Patient presents with Follow-up Blood in Urine Urinary Incontinence HPI: 47 y.o. female known to the urology department for voiding dysfunction; primarily hesitancy and incomplete bladder emptying. She underwent normal cystoscopy in August 2021. She presents today with complaints of gross hematuria, lower abdominal pain, and increased urgency with urge incontinence. She has history of chronic constipation. Negative gynecological workup. Pt recently diagnosed with possible silicone breast implant illness due to ruptured implant. Also recently diagnosed with pituitary tumor. ROS: Nurse Note: Review of Systems Genitourinary: Positive for decreased urine volume, difficulty urinating, flank pain, hematuria and urgency. Nursing Assessment: Physical Exam Pt comes to us today for incont. Pt is varies nocturia, 0-1 times. Pt has pain/discomfort on left side above ovaries area and into middle lower abd.sometimes. Pt was in ER 2 weeks ago for this issue, pt states was told acute kidney. Pt went to [facility] and was told has blood in urine. 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; Hyperprolactinemia; Obesity (BMI 30.0-34.9); Central hypothyroidism; Fatigue; Disorder of bone and cartilage; Vitamin D deficiency; Abnormal x-ray; Bilateral hip pain; 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; Dorsalgia; Lumbar degenerative disc disease; Enchondroma of bone of hand, right; Bilateral foot pain; Primary osteoarthritis of both feet; Bilateral calcaneal spurs; Chronic pain of both knees; Primary osteoarthritis of both knees; Dry eyes; Keratoconjunctivitis sicca; Rash; Xerostomia; Dry mouth; History of Raynaud's syndrome; Raynaud's disease; Lichen planus; Cervicalgia; Chronic pain of both shoulders; Bilateral biceps tendonitis; Rotator cuff tendonitis, left; Synovial cyst of hand; Osteochondral defect; Anemia; Hyperglycemia; Hyponatremia; Primary osteoarthritis of right shoulder; Osteoarthritis of facet joint of cervical spine; Degenerative cervical disc; Family history of discoid lupus; Psoriatic arthritis; Pulmonary scarring; Shortness of breath; Multiple chemical sensitivity syndrome; Reactive airway disease without complication; and Cigarette nicotine dependence with nicotine-induced disorder on their problem list. Current Outpatient Medications Medication Sig Dispense Refill albuterol 108 (90 Base) MCG/ACT Aero Soln inhaler Inhale 2 puffs every 4 hours as needed for Shortness of Breath, Cough, Respiratory Distress or Wheezing. 18 g 3 Adpljqv-Cnieythjkvq-Lmxhkkzezf (Breztri Aerosphere) 160-9-4.8 MCG/ACT Aerosol Inhale 2 puffs 2 times daily. 1 g 5 Ncrsdak-Vlxkzdtbxju-Mmibhissov (Breztri Aerosphere) 160-9-4.8 MCG/ACT Aerosol Inhale 2 puffs 2 times daily. 23.6 g 0 clobetasol 0.05 % Cream Apply topically As directed. cyclosporin 0.05 % Emulsion ophthalmic suspension 1 drop. DISABILITY PLACARD 1 Units by Unknown route daily. Disability placard end date 01/24/27 1 Each 0 estradiol 2 MG tablet Take 1 tablet by mouth daily. 30 tablet 1 Levothyroxine 25 MCG tablet Take 1 tablet by mouth daily. 90 tablet 3 Metoprolol succinate 100 MG tablet XL Take 1 tablet by mouth daily. 90 tablet 3 metroNIDAZOLE 500 MG tablet Take 1 tablet by mouth every 12 hours. for 7 days omeprazole [address] capsule Take 1 capsule by mouth daily. ondansetron 4 MG tablet Take 1 tablet by mouth every 8 hours as needed. Ozempic, 0.25 or 0.5 MG/DOSE, 2 MG/3ML Solution Pen-injector inject 0.25 milligrams subcutaneously every week predniSONE 5 MG tablet take 2 tablets by mouth every morning for 1 MONTH then 1 tablet every morning for 1 MONTH then 1 tablet every other day for 1 MONTH then STOP 60 tablet 5 Semaglutide, 1 MG/DOSE, (Ozempic, 1 MG/DOSE,) 2 MG/1.5ML Solution Pen-injector Inject 2 mg under the skin once a week. SPACER FOR INHALER PRESCRIPTION Use with inhaler as directed 1 Each 0 terconazole 0.4 % Cream insert vaginally 1 applicatorful once daily at bedtime for 7 days Venlafaxine HCl 225 MG tablet ER take 1 tablet by mouth once daily with food Adalimumab (Humira Pen) 40 MG/0.4ML Pen-injector Kit citrate free 40 mg injection one day a week (Patient not taking: Reported on 07/12/2022) 4 Each 11 Cholecalciferol (vitamin D3) 1.25 MG (86950 UT) capsule take 1 capsule by mouth every week (Patient not taking: Reported on 11/06/2022) No current facility-administered medications for this visit. family history includes Diabetes in her father and paternal grandmother; Heart Disease - Other in her father; Myocardial Infarction in her father. Past Medical History: Diagnosis Date Psoriatic arthritis 2022 Arrhythmia Asthma Depression GERD (gastroesophageal reflux disease) Past Surgical History: Procedure Laterality Date HYSTERECTOMY TOTAL ABDOMINAL LAPAROSCOPIC ORIF WRIST Left with hardware TONSILLECTOMY TUBAL LIGATION Social History Socioeconomic History Marital status: Single Spouse name: Not on file Number of children: Not on file Years of education: Not on file Highest education level: Not on file Occupational History Not on file Tobacco Use Smoking status: Some Days Types: Cigarettes Last attempt to quit: 09/25/2021 Years since quittin.1 Smokeless tobacco: Never Tobacco comments: Trying to quit, 5 cigs every other day Vaping Use Vaping Use: Never used Substance and Sexual Activity Alcohol use: Yes Comment: social Drug use: Not Currently Sexual activity: Not on file Other Topics Concern Not on file Social History Narrative Not on file Social Determinants of Health Financial Resource Strain: Not on file Food Insecurity: Not on file Transportation Needs: Not on file Physical Activity: Not on file Stress: Not on file Social Connections: Not on file Intimate Partner Violence: Not on file Housing Stability: Not on file Physical Exam: Resp 18 Ht 1.676 m (5' 6 ) Wt 90.7 kg (200 lb) BMI 32.28 kg/m Smoking Status Some Days Body mass index is 32.28 kg/m . Constitutional: Appears well, no acute distress. Cardiovascular: Regular rate and rhythm. No lower extremity edema. Pulmonary: Respirations even and unlabored. Lungs clear to auscultation. Abdomen: Soft, non-tender. Bowel sounds active x 4. No CVA/suprapubic tenderness noted. Musculoskeletal: All major joints are without swelling, erythema, or bony deformity. Normal range of motion of all major joints. Skin: Warm, dry and intact. Neuro: No sensory or motor deficits. Assessment/Plan: 1. Hesitancy of micturition 2. Chronic idiopathic constipation 3. Hematuria, gross 4. Urinary urgency PVR 32 ml. UA with trace intact blood; no evidence of infection on UA. She does not feel well. She had negative cystoscopy last year however given new onset of gross hematuria recommend repeat workup. Cytology, PCR, and CT urogram ordered. Follow up with Dr. Fitzgerald for repeat cystoscopy. Patient was advised to call with any questions or concerns. If symptoms worsen patient was advised to follow up in our office or the Emergency Dept. Benefits, Risks, Contraindications, and Complications of recommended treatments were explained the patient understands and agrees to proceed with plan. Nurse Note: Review of Systems Genitourinary: Positive for decreased urine volume, difficulty urinating, flank pain, hematuria and urgency. Nursing Assessment: Physical Exam Pt comes to us today for incont. Pt is varies nocturia, 0-1 times. Pt has pain/discomfort on left side above ovaries area and into middle lower abd.sometimes. Pt was in ER 2 weeks ago for this issue, pt states was told acute kidney. Pt went to [facility] and was told has blood in urine. PVR: 32 Lab Results Component Value Date APPEARANCE clear 11/26/2022 COLOR yellow 11/26/2022 SPECIFICGRAV >=1.030 11/26/2022 BLOOD trace-intact 11/26/2022 PH 5.5 11/26/2022 PROTEIN trace 11/26/2022 UROBILINOGEN 0.2 11/26/2022 NITRITE neg 11/26/2022 LEUKOCYTE neg 11/26/2022 LEUKOCESTUR Negative 08/08/2021 documented in this encounter [facility] 06-29-2022 Note HNO ID: [id number] Author: Clyde Vargas MD Service: ? Author Type: Physician Type: Progress Notes Filed: 06/29/2022 11:44 AM Note Text: ASSESSMENT/PLAN: 1. Meibomian gland dysfunction (MGD) of upper and lower lids of both eyes - ICD9: 373.00, ICD10: H02.88A, H02.88B (primary diagnosis) 2. Punctate keratitis of both eyes - ICD9: 370.21, ICD10: H16.143 Start: Lotemax solution instill 1 drop 3 times daily Both Eyes. Systane Complete solution instill 1 drop 3 times daily Both Eyes. 3. Pituitary tumor - ICD9: 239.7, ICD10: D49.7 Continue to monitor with primary care physician. 4. Essential hypertension - ICD9: 401.9, ICD10: I10 Continue to monitor with primary care physician. 5. Depression, unspecified depression type - ICD9: 311, ICD10: F32.A Continue to monitor with primary care physician. Clyde Vargas MD I have confirmed and edited as necessary the relevant ophthalmic history, review of systems, surgical history, and ophthalmological examination findings as obtained by the ophthalmic technical staff. I have seen and examined Shravan Davenport. I have discussed the examination findings, diagnosis, and treatment options with Shravan Davenport and/or her family. I have also reviewed and agree with the assessment and plan as stated above and agree with all its relevant components. I gave the patient the opportunity to ask questions about the findings, diagnosis, and treatment options. [facility] 04-05-2022 Note HNO ID: [id number] Author: RT Jazz(R) Service: ? Author Type: Handwriting Expert Type: Progress Notes Filed: 04/05/2022 10:03 AM Note Text: Radiology Service Progress Note DATE OF SERVICE: April 05, 2022 TIME: 10:02 AM PATIENT IDENTITY VERIFICATION COMPLETED USING TWO (2) STANDARD IDENTIFIERS: Name and Date of confirmed by patient verbally. FALL SCREENING: Has the patient had 2 falls in the last year or 1 fall with injury or currently using an Ambulatory Assistive Device (Walker, Cane, Wheelchair, Crutches, etc.)? No PATIENT GENDER DATA: Female. status: : No status: NO. PATIENT RELEVANT IMPLANT DATA REVIEWED: Yes ALLERGIES: Reviewed and unchanged CONTRAST ALLERGY: NO. EXAM: MRI - CONTRAST TYPE: GROUP II PERIPHERAL IV DATA: Ambulatory: A peripheral IV was started in the Right antecubital site with a Butterfly: 23 gauge. RADIOLOGY DEPARTMENT: MR; Exam(s) Completed: Head: Multiple Sclerosis Spine: Cervical spine SIGNATURE: RT Jazz(R) PATIENT NAME: Shravan Davenport DATE: April 05, 2022 TIME: 10:02 AM [facility] 04-05-2022 History of Present illness Narrative Formatting of this note is different fro m the original. Radiology Service Progress Note DATE OF SERVICE: April 05, 2022 TIME: 10:02 AM PATIENT IDENTITY VERIFICATION COMPLETED USING TWO (2) STANDARD IDENTIFIERS: Name and Date of confirmed by patient verbally. FALL SCREENING: Has the patient had 2 falls in the last year or 1 fall with injury or currently using an Ambulatory Assistive Device (Walker, Cane, Wheelchair, Crutches, etc.)? No PATIENT GENDER DATA: Female. status: : No status: NO. PATIENT RELEVANT IMPLANT DATA REVIEWED: Yes ALLERGIES: Reviewed and unchanged CONTRAST ALLERGY: NO. EXAM: MRI - CONTRAST TYPE: GROUP II PERIPHERAL IV DATA: Ambulatory: A peripheral IV was started in the Right antecubital site with a Butterfly: 23 gauge. RADIOLOGY DEPARTMENT: MR; Exam(s) Completed: Head: Multiple Sclerosis Spine: Cervical spine SIGNATURE: RT Jazz(R) PATIENT NAME: Shravan Davenport DATE: April 05, 2022 TIME: 10:02 AM documented in this encounter [facility] 03-01-2022 History of Present illness Narrative Review of Systems Constitutional: Positive for fatigue. Eyes: Positive for eye problems (Blurriness, and sensitivity, dry eyes). Respiratory: Positive for shortness of breath. Cardiovascular: Positive for palpitations. Endocrine: Positive for hot flashes. Musculoskeletal: Positive for arthralgias. Psychiatric/Behavioral: Positive for depression and sleep disturbance. The patient is nervous/anxious. CHIEF COMPLAINT/REASON: Chief Complaint Patient presents with Other Anemia HISTORY OF PRESENT ILLNESS: Shravan Davenport is a 46 y.o. female with history of pituitary adenoma who has multiple symptoms including photophobia, excessive sweating, abdominal bloating, shortness of breath, tachycardia as stated that she is concerned that she may have cancer. She was found to have a hemoglobin of 11.9 several months ago but has corrected and her hemoglobin is now normal. She and is under the care of an project executive at [employer]. She states that everything hurts and that she develops blotching up for skin in her toes turning purple. She has been seeing Dr. Doherty for that. ROS: Review of Systems - Oncology Review of Systems Constitutional: Positive for fatigue. Eyes: Positive for eye problems (Blurriness, and sensitivity, dry eyes). Respiratory: Positive for shortness of breath. Cardiovascular: Positive for palpitations. Endocrine: Positive for hot flashes. Musculoskeletal: Positive for arthralgias. Psychiatric/Behavioral: Positive for depression and sleep disturbance. The patient is nervous/anxious. Social History Socioeconomic History Marital status: Single Spouse name: Not on file Number of children: Not on file Years of education: Not on file Highest education level: Not on file Occupational History Not on file Tobacco Use Smoking status: Former Smoker Types: Cigarettes Quit date: 09/25/2021 Years since quittin.4 Smokeless tobacco: Never Used Vaping Use Vaping Use: Never used Substance and Sexual Activity Alcohol use: Yes Comment: social Drug use: Not Currently Sexual activity: Not on file Other Topics Concern Not on file Social History Narrative Not on file Social Determinants of Health Financial Resource Strain: Not on file Food Insecurity: Not on file Transportation Needs: Not on file Physical Activity: Not on file Stress: Not on file Social Connections: Not on file Intimate Partner Violence: Not on file Housing Stability: Not on file Family History Problem Relation Age of Onset Myocardial Infarction Father Diabetes Father Heart Disease - Other Father Diabetes Paternal Grandmother Past Medical History: Diagnosis Date Arrhythmia Depression GERD (gastroesophageal reflux disease) VISIT VITALS: Vitals: 03/01/22 1112 BP: 115/67 Pulse: 108 Resp: 17 Temp: 98.8 degrees F (37.1 degrees C) SpO2: 96% Weight: 89.9 kg (198 lb 4.8 oz) Height: 1.676 m (5' 6 ) PHYSICAL EXAM: Physical Exam Vitals and nursing note reviewed. Constitutional: General: She is not in acute distress. HENT: Head: Normocephalic. Eyes: General: No scleral icterus. Pupils: Pupils are equal, round, and reactive to light. Cardiovascular: Rate and Rhythm: Normal rate and regular rhythm. Heart sounds: No murmur heard. Pulmonary: Effort: Pulmonary effort is normal. No respiratory distress. Breath sounds: Normal breath sounds. No wheezing or rales. Abdominal: Palpations: Abdomen is soft. There is no mass. Tenderness: There is no abdominal tenderness. Musculoskeletal: General: No tenderness. Cervical back: Neck supple. Lymphadenopathy: Cervical: No cervical adenopathy. Skin: General: Skin is warm and dry. Neurological: Mental Status: She is alert and oriented to person, place, and time. Cranial Nerves: No cranial nerve deficit. Psychiatric: Behavior: Behavior normal. Thought Content: Thought content normal. RADIOLOGIC DATA: CT CHEST WITHOUT CONTRAST 11/02/21 IMPRESSION: CT chest study demonstrates mild atelectatic and/or fibrotic changes as noted. No obvious focal mass or infiltrate. CT Abdomen Pelvis With IV Contrast Only 09/21/21 Impression 1. Findings suggestive of possible mild enteritis with multiple fluid-filled nondilated loops of small bowel. No worrisome bowel wall edema. Moderate amount stool within the proximal colon suggesting possible constipation. No findings of colitis. No bowel obstruction. 2. No other acute process seen within the abdomen or pelvis. Incidental findings and comments as above. LABS: Latest Reference Range & Units 02/13/22 16:30 WBC 3.6 - 11.0 10*3/uL 5.0 RBC 4.0 - 5.4 10*6/uL 4.27 HEMOGLOBIN 12.0 - 16.0 G/DL 12.6 HEMATOCRIT 36.0 - 48.0 % 37.3 MEAN CELL VOLUME 80.0 - 100.0 FL 87.4 Mean Cell HGB 26.0 - 35.0 PG 29.6 MEAN CELL HGB CONCENTRATION 27.0 - 37.0 G/DL 33.8 RBC DISTRIBUTION 11.5 - 14.5 % 14.1 PLATELET COUNT 130.0 - 400.0 10*3/uL 327 MEAN PLATELET VOLUME 7.4 - 11.0 FL 8.7 NEUTROPHILS 37.0 - 75.0 % 47.7 LYMPHOCYTE 20.0 - 55.0 % 44.4 MONOCYTES % 0.0 - 10.0 % 6.7 EOSINOPHILS % 0.0 - 11.0 % 0.9 BASOPHILS % 0.0 - 2.0 % 0.3 LYMPHOCYTES, ABSOLUTE 1.2 - 3.4 10*3/uL 2.20 MONOCYTES, ABSOLUTE 0.0 - 0.7 10*3/uL 0.3 EOSINOPHIL COUNT 0.0 - 0.7 10*3/uL 0.00 ABSOLUTE BASOPHIL COUNT 0.0 - 0.2 10*3/uL 0.0 DIFFERENTIAL TYPE % AUTO DIFF Immunoglobulin E 89 Aspergillus fumigatus IgE <0.10 CLADOSPORIUM HERBARUM IGE <0.10 PENICILLIUM CHRYSOGEN <0.10 Allergen, [place], [place] Plantain IgE <0.10 Mouse Urine Protein, IgE <0.10 House Dust Mites/D.P., Class <0.10 House Dust Mites/D.F.,Class <0.10 CAT DANDER, CONV, CLASS <0.10 ALLERGEN, DOG DANDER, IGE <0.10 [place], IGE <0.10 SHORT RAGWEED, IGE <0.10 BERMUDA GRASS IGE <0.10 [id number] REQUEST FOR [facility] Rpt Miscellaneous Test 1 SPECIMEN SENT TO REFERENCE LAB FOR TESTING ASSESSMENT / PLAN: 46-year-old lady with history of anemia 4 months ago. She probably had iron deficiency at that time. She however does not have any anemia at this time. I discussed in detail with her that she probably needs to see her primary care physician for all the general eyes complains that she has. I do not see any hematologic issues at this time. Advised her to see us back if need arises. A total of 40 minutes was spent in review of the patient's chart and labs, note preparation, direct, face to face contact with the patient, and any potential coordination of care today. ( Excluding any time spent on testing or procedures.) Guadalupe Loera MD Portions of this chart were created using [employer]. Please excuse any typographical or grammatical errors contained herein as a result. documented in this encounter [facility] 02-13-2022 History of Present illness Narrative Formatting of this note is different fro m the original. Subjective Chief Complaint Patient presents with Right Hand - Pain OPNP-ongoing x 8 mo Review of Systems Constitutional: Negative for chills, fatigue and fever. Eyes: Negative for visual disturbance. Respiratory: Negative for shortness of breath. Cardiovascular: Negative for chest pain. Gastrointestinal: Negative for abdominal pain and blood in stool. Endocrine: Negative for polydipsia. Genitourinary: Negative for hematuria. Musculoskeletal: Positive for arthralgias. Negative for myalgias. Neurological: Negative for seizures. Hematological: Bruises/bleeds easily. Psychiatric/Behavioral: Negative for dysphoric mood. 02/13/22 Chief Complaint Patient presents with Right Hand - Pain OPNP-ongoing x 8 mo HPI: Today's encounter takes approximately 35-40 minutes. She has multiple complaints. She states she suddenly became ill globally and thinks that she is dying, and is having multiple complaints to include heart racing, chronic pain, difficulty sleeping, hip pain, hand pain. She was diagnosed as having psoriatic arthritis and has started treatment for that without significant benefit. Her hand, which was bothering her a fair amount, is feeling a fair amount better. Past Medical History: Diagnosis Date Arrhythmia Depression GERD (gastroesophageal reflux disease) Past Surgical History: Procedure Laterality Date HYSTERECTOMY TOTAL ABDOMINAL LAPAROSCOPIC ORIF WRIST Left with hardware TONSILLECTOMY TUBAL LIGATION Current Outpatient Medications: Adalimumab (Humira Pen) 40 MG/0.4ML Pen-injector Kit citrate free, 40 mg injection one day a week, Disp: 4 Each, Rfl: 11 albuterol 108 (90 Base) MCG/ACT Aero Soln inhaler, Inhale 2 puffs every 4 hours as needed for Shortness of Breath, Cough, Respiratory Distress or Wheezing., Disp: 18 g, Rfl: 3 Xjirhyz-Slpmaauhaku-Bonipiampi (Breztri Aerosphere) 160-9-4.8 MCG/ACT Aerosol, Inhale 2 puffs 2 times daily., Disp: 1 g, Rfl: 5 Cmmpnwl-Fsmkjikeosl-Dlezwrtfaf (Breztri Aerosphere) 160-9-4.8 MCG/ACT Aerosol, Inhale 2 puffs 2 times daily., Disp: 23.6 g, Rfl: 0 Cholecalciferol (vitamin D3) 1.25 MG (16256 UT) capsule, take 1 capsule by mouth every week, Disp: , Rfl: clobetasol 0.05 % Cream, Apply topically Twice daily., Disp: , Rfl: cyclosporin 0.05 % Emulsion ophthalmic suspension, 1 drop., Disp: , Rfl: DISABILITY PLACARD, 1 Units by Unknown route daily. Disability placard end date 01/24/27, Disp: 1 Each, Rfl: 0 estradiol 2 MG tablet, Take 1 tablet by mouth daily., Disp: 30 tablet, Rfl: 1 levothyroxine 25 MCG tablet, Take 1 tablet by mouth daily., Disp: 90 tablet, Rfl: 2 metoprolol succinate 100 MG tablet XL, Take 100 mg by mouth daily., Disp: , Rfl: omeprazole [address] capsule, Take 40 mg by mouth daily., Disp: , Rfl: ondansetron 4 MG tablet, Take 4 mg by mouth every 8 hours as needed., Disp: , Rfl: Semaglutide, 1 MG/DOSE, (Ozempic, 1 MG/DOSE,) 2 MG/1.5ML Solution Pen-injector, Inject 2 mg under the skin once a week., Disp: , Rfl: SPACER FOR INHALER PRESCRIPTION, Use with inhaler as directed, Disp: 1 Each, Rfl: 0 Venlafaxine HCl 225 MG tablet ER, take 1 tablet by mouth once daily with food, Disp: , Rfl: No Known Allergies Social History Socioeconomic History Marital status: Single Spouse name: Not on file Number of children: Not on file Years of education: Not on file Highest education level: Not on file Occupational History Not on file Tobacco Use Smoking status: Former Smoker Types: Cigarettes Quit date: 09/25/2021 Years since quittin.3 Smokeless tobacco: Never Used Vaping Use Vaping Use: Never used Substance and Sexual Activity Alcohol use: Yes Comment: social Drug use: Not Currently Sexual activity: Not on file Other Topics Concern Not on file Social History Narrative Not on file Social Determinants of Health Financial Resource Strain: Not on file Food Insecurity: Not on file Transportation Needs: Not on file Physical Activity: Not on file Stress: Not on file Social Connections: Not on file Intimate Partner Violence: Not on file Housing Stability: Not on file Family History Problem Relation Age of Onset Diabetes Father Heart Disease - Other Father Diabetes Paternal Grandmother Review of Systems Constitutional: Negative for chills, fatigue and fever. Eyes: Negative for visual disturbance. Respiratory: Negative for shortness of breath. Cardiovascular: Negative for chest pain. Gastrointestinal: Negative for abdominal pain and blood in stool. Endocrine: Negative for polydipsia. Genitourinary: Negative for hematuria. Musculoskeletal: Positive for arthralgias. Negative for myalgias. Neurological: Negative for seizures. Hematological: Bruises/bleeds easily. Psychiatric/Behavioral: Negative for dysphoric mood. Physical Examination: Vitals: 02/13/22 1521 Temp: 96.9 degrees F (36.1 degrees C) TempSrc: Temporal Weight: 88.9 kg (196 lb) Height: 1.676 m (5' 6 ) Extremity: Examination of the right upper extremity demonstrates the median, ulnar and radial nerves are intact. Full finger motion. Brisk capillary refill. No real tenderness. No instability. Mild pain with grind maneuver. Negative Tinel's and Phalen's. Intact sensation. Brisk capillary refill. Diagnostic Studies: X-rays previously taken have been reviewed and demonstrate what appears to be lytic changes in the distal phalanx of the thumb, thumb metacarpal and scaphoid. They do appear to be benign in nature, well circumscribed with no significant interval change in approximately a 6 month period of time. Assessment: 1. Right hand pain, currently resolved. I think that is likely from underlying psoriatic arthritis that is being treated now. Her bony deformities do not appear to have any interval change. Plan: I will see her back in 6 months for repeat x-rays and clinical check, but I think they are likely benign cysts versus enchondromas. documented in this encounter [facility] 02-07-2022 History of Present illness Narrative Formatting of this note is different fro m the original. Subjective Patient ID: Shravan Davenport is a 46 y.o. female. HPI The patient presents today for follow up after undergoing heartburn evaluation on 01/17/22. The patient EGD demonstrated normal findings. Biopsies for PTEK negative. Hodge was positive for distal esophageal acid exposure, DeMeester scores 16.3 and 15.1. Patient had a gastric emptying study that was normal. The patient's main symptoms are abdominal bloating and constipation. She reports she has tried taking metamucil without much improvement. She reports drinking mostly soda and tea. We discussed trying plain water as well as daily dose of miralax. Past Medical History: Diagnosis Date Anxiety Arthritis 2021 Psoriatic Asthma Back pain Degenerative disc disease at L5-S1 level including L4 Depression Discoloration of skin of lower leg GERD (gastroesophageal reflux disease) Hypothyroidism, adult IBS (irritable bowel syndrome) with constipation Leg pain Pituitary tumor Right hand pain Past Surgical History: Procedure Laterality Date breast augmentation COLONOSCOPY N/A 03/17/2019 Procedure: COLONOSCOPY; Surgeon: Ricky Scruggs MD; [place] [facility]; Service: Gastroenterology EGD N/A 03/17/2019 Procedure: ESOPHAGOGASTRODUODENOSCOPYwith bx; Surgeon: Ricyk Scruggs MD; [place] [facility]; Service: Gastroenterology EGD N/A 01/17/2022 Procedure: ESOPHAGOGASTRODUODENOSCOPY WITH HODGE AND BIOPSY; Surgeon: Maury Castillo MD; Location: [facility]; Service: General Surgery HYSTERECTOMY 2017 OOPHORECTOMY Right PROLONGED ACID REFLUX TEST 48H PH N/A 01/17/2022 Procedure: PROLONGED ACID REFLUX TEST 48H PH; Surgeon: Maury Castillo MD; Location: [facility]; Service: General Surgery TONSILLECTOMY Bilateral 10/29/2018 Procedure: TONSILLECTOMY; Surgeon: Gonzalez Martinez Jr., DO; Location: [facility] OR; Service: Otolaryngology WRIST SURGERY Left hardware has a current medication list which includes the following prescription(s): humira(cf) pen, albuterol, breztri aerosphere, cholecalciferol (vitamin d3), clobetasol, estradiol, levothyroxine, metoprolol tartrate, omeprazole, ondansetron, ozempic, restasis, venlafaxine, and oxaprozin. Allergies: Patient has no known allergies. Social History Socioeconomic History Marital status: Tobacco Use Smoking status: Former Packs/day: 0.50 Years: 10.00 Pack years: 5.00 Types: Cigarettes Quit date: 11/22/2021 Years since quittin.2 Smokeless tobacco: Never Vaping Use Vaping Use: Never used Substance and Sexual Activity Alcohol use: Not Currently Drug use: No Family History Problem Relation Age of Onset Heart disease Father Heart attack Father 46 bypass Coronary artery disease Father Stroke Father Diabetes Father Neuropathy Father Review of Systems Constitutional: Negative for activity change, appetite change, chills, fatigue, fever and unexpected weight change. HENT: Negative for hearing loss, nosebleeds and trouble swallowing. Eyes: Negative for visual disturbance. Respiratory: Negative for cough, shortness of breath, wheezing and stridor. Cardiovascular: Negative for chest pain and leg swelling. Gastrointestinal: Positive for abdominal distention, abdominal pain and constipation. Negative for blood in stool, diarrhea, nausea and vomiting. Endocrine: Negative for cold intolerance and heat intolerance. Genitourinary: Negative for difficulty urinating, frequency, hematuria and urgency. Musculoskeletal: Negative for arthralgias. Skin: Negative for rash and wound. Allergic/Immunologic: Negative for environmental allergies and food allergies. Neurological: Negative for seizures, syncope, weakness and numbness. Hematological: Negative for adenopathy. Does not bruise/bleed easily. Psychiatric/Behavioral: Negative for agitation and dysphoric mood. Objective Physical Exam Vitals reviewed. Constitutional: General: She is not in acute distress. Appearance: Normal appearance. She is well-developed. She is not diaphoretic. HENT: Head: Normocephalic and atraumatic. Right Ear: External ear normal. Left Ear: External ear normal. Nose: Nose normal. Eyes: Pupils: Pupils are equal, round, and reactive to light. Neck: Thyroid: No thyromegaly. Vascular: No JVD. Trachea: No tracheal deviation. Cardiovascular: Rate and Rhythm: Normal rate and regular rhythm. Heart sounds: Normal heart sounds. Pulmonary: Effort: Pulmonary effort is normal. No respiratory distress. Breath sounds: Normal breath sounds. Abdominal: General: Bowel sounds are normal. There is no distension. Palpations: Abdomen is soft. There is no mass. Tenderness: There is no abdominal tenderness. There is no guarding or rebound. Musculoskeletal: General: Normal range of motion. Cervical back: Normal range of motion. Skin: General: Skin is warm and dry. Neurological: General: No focal deficit present. Mental Status: She is alert. Mental status is at baseline. Cranial Nerves: No cranial nerve deficit. Psychiatric: Behavior: Behavior normal. Assessment/Plan: Diagnoses and all orders for this visit: Bloating Gaseous regurgitation Constipation, unspecified constipation type Medical management as recommended Follow up prn documented in this encounter [facility] 01-31-2022 History of Present illness Narrative Formatting of this note is different fro m the original. History of Present Illness Presence of Pain: denies pain/discomfort. Total time spent in this encounter was 43 minutes. Energy level is terrible. Dry mouth is worse. Dry eyes are the same. Blurred vision is the same. Photophobia is the same. Cough comes and goes. Breathing is the same. Patient has asthma. Patient is here today for her 3 Month F/U. Patient states she seen a Gastro Dr. Castillo for her stomach issues. Patient states she is seeing Dr. Khan for her breathing issues, she was diagnosed with Asthma. Patient states the past couple weeks she was in tachycardia, she did not go to the ER no one cares and no one follows up, standing HR was 154 and sitting HR was 134. Patient states her may concern is fatigue, breathing issues and fatigue. Patient states she thinks she has something more going on. Patient states she does not think the Humira is working. Patient states she is having achiness and joint pain. Patient states 3-4 days before she is due for her next Humira injection she will have severe stomach pain, tachycardia, cough, joint pain, she does not think its lasting the full 2 weeks. Patient states she had an echocardiogram done and it came back abnormal but no one is looking into it. Patient states she has blisters on her face. Patient states she is so sick and she thinks she has cancer. Patient C/O Tachycardia and sweating. Bloating is terrible. Belly pain is the same. Nausea is the same. Joint pain yeah but it is not terrible. Patient feels that the humira wears off 3 days prior to next show. Back pain is yeah - every thing hurts. Raynaud's is about the same. Dry skin is the same. Patient has been off of prednisone for a while she states. humira is every 2 weeks Review of Systems Constitutional: Positive for fatigue and unexpected weight change. Wt gain. HENT: Positive for sore throat. Dry mouth Eyes: Positive for photophobia and visual disturbance. Blurred vision Dry eyes Respiratory: Positive for cough and shortness of breath. Asthma Cardiovascular: Positive for palpitations. Tachycardia Gastrointestinal: Positive for abdominal distention, abdominal pain and nausea. Bloating Endocrine: Sweating Genitourinary: Negative. Musculoskeletal: Positive for arthralgias and back pain. Skin: Positive for color change and rash. History of raynaud's Nail dystrophy Dry skin Rash on but and blisters on face Allergic/Immunologic: Negative. Neurological: Negative. Hematological: Positive for adenopathy. B/L axiallary Psychiatric/Behavioral: Depression Vitals: Blood pressure 138/78, pulse 88, temperature 98 F (36.7 C), temperature source Temporal, height 1.676 m (5' 6 ), weight 93.4 kg (206 lb), SpO2 97 %, not currently . Physical Exam Vitals and nursing note reviewed. Constitutional: Appearance: Normal appearance. She is obese. HENT: Head: Normocephalic and atraumatic. Right Ear: External ear normal. Left Ear: External ear normal. There is impacted cerumen. Tympanic membrane is retracted. Nose: Nose normal. Mouth/Throat: Mouth: Mucous membranes are dry. Comments: Mask Eyes: Extraocular Movements: Extraocular movements intact. Conjunctiva/sclera: Conjunctivae normal. Pupils: Pupils are equal, round, and reactive to light. Comments: Dry eyes Cardiovascular: Rate and Rhythm: Normal rate and regular rhythm. Pulses: Radial pulses are 2+ on the right side and 2+ on the left side. Heart sounds: Normal heart sounds. Pulmonary: Effort: Pulmonary effort is normal. Breath sounds: Normal breath sounds. Abdominal: General: Bowel sounds are normal. Palpations: Abdomen is soft. Comments: obese Musculoskeletal: Right shoulder: Normal. Left shoulder: Normal. Right upper arm: Normal. Left upper arm: Normal. Right elbow: Normal. Left elbow: Normal. Right forearm: Normal. Left forearm: Normal. Right wrist: Normal. Left wrist: Decreased range of motion. Right hand: Decreased range of motion. Decreased strength. Left hand: Decreased range of motion. Decreased strength. Cervical back: Neck supple. Right upper leg: Normal. Left upper leg: Normal. Right knee: Crepitus present. Left knee: Crepitus present. Right lower leg: Normal. Left lower leg: Normal. Right ankle: Normal. Left ankle: Normal. Comments: Synovial cyst index and 5th PIP. Oa changes hands and feet. Skin: General: Skin is warm and dry. Findings: Rash present. Comments: Nail dystrophy Did not examine historical rash on buttocks. Neurological: Mental Status: She is alert and oriented to person, place, and time. Cranial Nerves: Cranial nerves are intact. Sensory: Sensation is intact. Motor: Weakness present. Comments: Decreased community fundraiser strength both hands Neurological Exam Mental Status Alert. Oriented to person, place, and time. Cranial Nerves CN II: Vision test: Dry eyes. CN III, IV, : Extraocular movements intact bilaterally. Pupils equal round and reactive to light bilaterally. Sensory Normal sensation. Decreased community fundraiser strength both hands. Assessment and Plan Encounter Diagnoses Name Primary? 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 Time was spent with the patient today in education in re: to all their medical conditions. A complete H&P&ROS was obtained and is either in this note or in the EHR. Please do not hesitate to contact me with any questions or concerns re: this patient. Past History Past medical, surgical, family, and social histories have been reviewed and updated with the patient today and are located elsewhere in the medical record. 2. Thank you for allowing me to participate in the care of your patient. With your permission I would like to F/U with your patient. 3. Cardiology F/U per Dr. Perez and Dr. Ibarra 4. Stop Sulindac - it does not help and does not bother her 5. Rx given for PT/OT - patient has not started it yet. Patient still has not gone. 6. Negative RF, CCP, MILVIA, dsDNA, BOSSMAN , Hep A&B&C serology, Lyme disease, MPO (times 2), cANCA (times 2), pANCA (times 2), Atypical pANCA (times 2), HLA-B27, Celiac, NIKHIL, LAC, 7. Normal CPK 8. C3 was normal at 138.3 9. C4 was normal at 26.6 10. Hgb was low at 11.6 and is now normal at 12.6 11. Patient declines pilocrapine 12. Rx given for Humira to increase to once a week 13. Mild bony buttressing at the posterolateral femoral head.neck junctions B/L with small synovial herniation pit at right femoral head/neck junction 14. Possible family history of psoriasis 15. TB test is negative 15. UA showed no blood or protein on dip with trace ketones. 16. ORIF L wrist S/P 17. Lab on or about 07/17/2022 18. Patient told that they could use OTC dry mouth preparations such as Biotene. Patient told they could use OTC artificial tears. 19. Optho F/U per Dr. Vargas 20. Vit d under care of PCP 21. Patient given educational material on Raynaud's in the form of a pamphlet from the arthritis foundation. Patient told that keeping warm and taking a baby ASA 81 mg a day would be the cornerstone of treatment. Beta blockers can aggravate Raynaud's. Alpha blockers and calcium channel Blockers will help Raynaud's 22. Derm F/U per Dr. angeles 23. Tylenol PRN 24. IBP upset stomach 25. At patient's request will F/U with me in 6 months 26. CRP was elevated at 12.7 and is now negative at < 7.9 27. Hold Humira 2 weeks before and 2 weeks after any surgery or live vaccine (shingles). Hold Humira anytime have an infection can restart once of off ATB and/or antiviral and free of infection. Hold Humira if open wound can restart once wound has healed. 28. z-pack caused heart damage per patient 29. At patient's request will set up with chronic pain management - patient cancelled her appointment 30. At patient's request will set up with Dr. Zapata at [facility] for hip pain - this appointment is coming up - has not seen yet. Has not seen yet. 31. Patient declines referral to hand surgeon 32. Patient declines referral to podiatry 33. ESR was normal at 20 and still is at 23 34. Uric acid was normal at 4.8 35. GI F/U per Dr. Castillo 36. Pulmonary F/U per Dr. khan 37. Glucose was elevated at 103 and patient is going to F/U with PCP 38. Sodium was low at 135 39. Urology F/U per Dr. Fitzgerald. 40. Rec: psych eval and F/U for depression 41. PR3 was elevated at 6.2 and then negative 42. SUJATHA level was normal at 20 43. Patient declines referral to sports medicine 44. Endo F/U per [facility] 45. If raynaud's problems continue rec: vascular medicine eval 46. Patient stopped Methotrexate due to nausea and bloating that she still has and a rash on her face and coughing. 47. Rec: ortho eval of abnormal x-ray R thumb 48 At patient's request will set up with hand surgeon about abnormal R thumb x-ray. 49. At patient's request will set up with Hem/Onc re: anemia documented in this encounter [facility] 01-31-2022 Miscellaneous Notes Addended by: KARLO DOHERTY on: 01/31/2022 03:36 PM Modules accepted: Orders documented in this encounter [facility] 01-31-2022 Note Addended by: KARLO UP on: 01/31/2022 03:36 PM Modules accepted: Orders [facility] 01-24-2022 History of Present illness Narrative Formatting of this note is different fro m the original. Patient is a 46 y.o. female who came to be evaluated and managed for dyspnea Follow-up (8 weeks-Test results-Asthma) . ICD-10-CM 1. Reactive airway disease without complication, unspecified asthma severity, unspecified whether persistent J45.909 ALPHA 1 ANTITRYPSIN CBC, EDIF, PLATELET IMMUNOGLOBULIN IGE ALLERGEN PROFILE, MOLD MINI-PANEL ALLERGEN PROFILE ACID FAST CULTURE RESPIRATORY CULTURE FUNGUS CULTURE REQUEST FOR [facility] S[facility] DISABILITY PLACARD 2. Pulmonary scarring J98.4 3. Secondary pulmonary arterial hypertension I27.21 4. Shortness of breath R06.02 5. Cigarette nicotine dependence with nicotine-induced disorder F17.219 GA SMOKE/TOBACCO COUNSELING, INTERMEDIATE, GREATER THAN 3 MINS UP TO 1O MINS 6. 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 COPD exacerbation J44.1 doxycycline monohydrate 100 MG tablet predniSONE 10 MG tablet 8. SVT (supraventricular tachycardia) I47.1 AMB REFERRAL TO CARDIOVASCULAR MEDICINE 9. Reina infection B37.9 fluconazole 150 MG tablet Problem List Items Addressed This Visit Pulmonary scarring Chest radiograph w/ some increased lung markings, MELONIE lung scarring; possible element of Interstitial lung disease ILD - History of psoriatic arthritis, Raynaud's syndrome; on methotrexate; ff'd by Rheum Dr. Doherty - 11/02/2021 CT Chest Without contrast reviewed: Satisfactory, no acute lung findings or significant abnormalities. Mild, focal linear scarring RML, Lingula, LLL - mild scars or atelectasis; but No Significant, generalized lung inflammation or lung scarring, or enlarged pulmonary artery (NO diffuse ILD, GGOs, pulmonary fibrosis, UIP). - likely mild, focal post-inflammatory scarring RML, lingula, LLL - monitor chest imaging, PFT, 6mwt prn, as indic - further evaluation, management pending results, clinical course. Shortness of breath Suspect multifactorial: cardiopulm disease, deconditioning - PFT, 6MWT, Echo 10/2021: as noted, satisfactory - dyspnea [id number] to PFT, 6mwt, Echo, CT - consider Methacholine challenge test (r/o RAD, asthma, on PFT) - consider referral to [facility] for further eval, management (poss CPET) - recommend some wt loss, stay active - Cardiopulmonary Rehab program, if feasible (PFT, LVEF may not qualify) Reactive airway disease without complication - Primary - fmr smoker; episodic dyspnea; may have element of RAD, asthma on PFT - 12/20/21 Methacholine Challenge test MCT [facility] Reviewed: Positive MCT consistent w/ Bronchial Hyper-responsiveness, as may be seen w/ Asthma, Reactive Airway Disease (PC20 3.76). -- continue inhalers - 11/02/2021 PFT: Spirometry within Normal. Normal lung volume VC 90%. Mildly Reduced Diffusing Capacity DLCO 62%, DL/VA 80% (which normalizes when adjusted for lung volume, suggesting extraparenchymal cause). Possible Mild Obstruction based on possible mild, borderline element of bronchodilator response or reversible airway obstruction ( e.g., asthma, reactive airway disease). --- FEV1/FVC ratio is 75%. FEV1 2.60 L at 85% predicted value. FVC 3.45 L at 89% predicted value. Maximal Mid-Expiratory or Small Airways Flow Rate FEF 25-75% 2.15 L/s at 72% predicted value. PEF 6.11 L/s at 85% predicted value. There was NO OR MILD (only FEF 25-75% improved, by 19%) statistically significant bronchodilator response. - Severity: mild-mod - Try triple tx Breztri or Trelegy or other inhaler regimen, if feasible; cont. albuterol as needed; use spacer - may also use duonebs; budesonide+formoterol nebs alternatively - patient benefits from nebulizer treatments - Inhaler technique teaching done/reviewed prev.; rinse mouth after inhaler use especially after inhaled steroids - consider Montelukast - consider Allergy testing, check Eosinophils, IgE prn, as indic - Consider other controller meds, Biologics subsequently, if indicated - Avoid/control triggers; environmental control prn - control GERD as indicated - Smoking cessation reinforced: nonsmoker - monitor PFT prn, as indicated. - consider Peak Flow monitoring, Asthma Action Plan subseq., if necessary - ffup imaging as needed, Chest radiograph as indicated (CT Chest if indicated) - Pulmonary rehab program: as indic., if feasible; rec to stay active (PFT, LVEF may not qualify) - Influenza, pneumococcal, COVID19 vaccines recommended, updated Relevant Medications DISABILITY PLACARD Other Relevant Orders ALPHA 1 ANTITRYPSIN CBC, EDIF, PLATELET IMMUNOGLOBULIN IGE ALLERGEN PROFILE, MOLD MINI-PANEL ALLERGEN PROFILE ACID FAST CULTURE RESPIRATORY CULTURE FUNGUS CULTURE REQUEST FOR [facility] Cigarette nicotine dependence with nicotine-induced disorder Smoking Cessation Counseling (including rationale, help that can be provided to assist in cessation; risks of smoking-related cancer, COPD or arteriovascular disease, including CAD, PVD or stroke are increased with continued smoking); pt was advised to quit; encouraged to set quit date; 4 minutes spent; current smoker: yes; ready to quit: trying to quit; considering, contemplating; options, aids, discussed with pt. Relevant Orders GA SMOKE/TOBACCO COUNSELING, INTERMEDIATE, GREATER THAN 3 MINS UP TO 1O MINS RESOLVED: Secondary pulmonary arterial hypertension May develop secondary Pulmonary Hypertension related to cardiopulmonary disease (WHO Grp 3). - History of psoriatic arthritis, Raynaud's syndrome; on methotrexate; ff'd by Rheum Dr. Doherty - 11/02/2021 Echocardiogram reviewed: Normal left and right heart function (LVEF 60%), no pulmonary hypertension. Conclusion Normal LV and RV size and function, estimated EF 60%. No significant valvular disease. No evidence of PAH, estimated RVSP 25 mm/Hg. - monitor Echocardiogram as indicated - consider RHC Right heart catheterization, as indicated - optimize underlying conditions - consider sleep study, as indicated Other Visit Diagnoses ABPA (allergic bronchopulmonary aspergillosis) Relevant Orders ACID FAST CULTURE RESPIRATORY CULTURE FUNGUS CULTURE REQUEST FOR [facility] COPD exacerbation Relevant Medications doxycycline monohydrate 100 MG tablet predniSONE 10 MG tablet SVT (supraventricular tachycardia) Relevant Orders AMB REFERRAL TO CARDIOVASCULAR MEDICINE Reina infection Relevant Medications fluconazole 150 MG tablet HPI 01/24/22: on inhalers; +MCT Reviewed 11/29/21: not in ae. CT, Echo, PFT, 6mwt Reviewed. 10/13/21 Background History - fmr Smoker; hx of dyspnea. - History of psoriatic arthritis, Raynaud's syndrome; on methotrexate; ff'd by Rheum Dr. Doherty - no recent PFT, CT, Echo - 09/21/21 CXR [facility] Reviewed: MELONIE scarring The cardiac silhouette is normal in size. Mediastinal and hilar contours are within normal limits. There is a small amount of linear atelectasis/scarring in the lingula. The lungs are otherwise clear. Costophrenic angles are sharp. No pneumothorax or suspicious osseous lesion. IMPRESSION:Minimal linear scarring/atelectasis in the lingula. No other acute process is identified in the chest. Current Outpatient Medications: Adalimumab (Humira Pen) 40 MG/0.4ML Pen-injector Kit citrate free, 40 mg injection every 2 weeks, Disp: 2 Each, Rfl: 11 albuterol 108 (90 Base) MCG/ACT Aero Soln inhaler, Inhale 2 puffs every 4 hours as needed for Shortness of Breath, Cough, Respiratory Distress or Wheezing., Disp: 18 g, Rfl: 3 Nodpcds-Qnmobmoyfng-Tjfendhwlz (Breztri Aerosphere) 160-9-4.8 MCG/ACT Aerosol, Inhale 2 puffs 2 times daily., Disp: 1 g, Rfl: 5 Yjmtaok-Glqoymtylli-Vcxqchmbqu (Breztri Aerosphere) 160-9-4.8 MCG/ACT Aerosol, Inhale 2 puffs 2 times daily., Disp: 23.6 g, Rfl: 0 Cholecalciferol (vitamin D3) 1.25 MG (50236 UT) capsule, take 1 capsule by mouth every week, Disp: , Rfl: clobetasol 0.05 % Cream, Apply topically Twice daily., Disp: , Rfl: cyclosporin 0.05 % Emulsion ophthalmic suspension, 1 drop., Disp: , Rfl: estradiol 2 MG tablet, Take 1 tablet by mouth daily., Disp: 30 tablet, Rfl: 1 levothyroxine 25 MCG tablet, Take 1 tablet by mouth daily., Disp: 90 tablet, Rfl: 2 metoprolol succinate 100 MG tablet XL, Take 100 mg by mouth daily., Disp: , Rfl: omeprazole [address] capsule, Take 40 mg by mouth daily., Disp: , Rfl: ondansetron 4 MG tablet, Take 4 mg by mouth every 8 hours as needed., Disp: , Rfl: oxaprozin 600 MG tablet, 2 po q day, Disp: 60 tablet, Rfl: 11 predniSONE 5 MG tablet, 2 po q AM for 1 month then 1 po q AM for 1 month then 1 po every other day for 1 month then stop, Disp: 60 tablet, Rfl: 5 Semaglutide, 1 MG/DOSE, (Ozempic, 1 MG/DOSE,) 2 MG/1.5ML Solution Pen-injector, Inject 2 mg under the skin once a week., Disp: , Rfl: SPACER FOR INHALER PRESCRIPTION, Use with inhaler as directed, Disp: 1 Each, Rfl: 0 Venlafaxine HCl 225 MG tablet ER, take 1 tablet by mouth once daily with food, Disp: , Rfl: DISABILITY PLACARD, 1 Units by Unknown route daily. Disability placard end date 01/24/27, Disp: 1 Each, Rfl: 0 doxycycline monohydrate 100 MG tablet, Take 1 tablet by mouth every 12 hours for 7 days., Disp: 14 tablet, Rfl: 0 fluconazole 150 MG tablet, Take 1 tablet by mouth once for 1 dose., Disp: 1 tablet, Rfl: 0 predniSONE 10 MG tablet, Take 4 tablets by mouth for 3 days, then take 3 tablets by mouth for 3 days, then take 2 tablets by mouth for 3 days, 1 tablet for 3 days, Disp: 30 tablet, Rfl: 0 Past Medical History: Diagnosis Date Arrhythmia Depression GERD (gastroesophageal reflux disease) Past Surgical History: Procedure Laterality Date HYSTERECTOMY TOTAL ABDOMINAL LAPAROSCOPIC ORIF WRIST Left with hardware TONSILLECTOMY TUBAL LIGATION Social History Tobacco Use Smoking status: Former Smoker Types: Cigarettes Quit date: 09/25/2021 Years since quittin.3 Smokeless tobacco: Never Used Substance Use Topics Alcohol use: Yes Comment: social Family History Problem Relation Age of Onset Diabetes Father Heart Disease - Other Father Diabetes Paternal Grandmother No Known Allergies Review of Systems Nurse Note: Review of Systems Constitutional: Positive for unexpected weight change. Respiratory: Positive for cough, chest tightness and shortness of breath. Cardiovascular: Positive for chest pain and leg swelling. Psychiatric/Behavioral: Positive for sleep disturbance. Nursing Assessment: Oxygen use no Do you have a CPAP-no DME company- none Most recent CT 09/21/2021 Most recent PFT- 11/02/2021 Symptoms include: Increase in shortness of breath-yes Dyspnea upon exertion-yes, walking, stairs, inclines Dyspnea at rest-no Cough- productive-yes, color-Brown Have you had the Covid 19 vaccine-no Do you need a Medication refill?no Pt presents for review of Symptoms Pt has Rosie Pt has rescue inhaler Pt talking about suicide, insisting that she is going to . Vitals: 01/24/22 1116 BP: 122/72 Pulse: 105 Resp: 16 Temp: 96.7 degrees F (35.9 degrees C) SpO2: 97% Weight: 92.6 kg (204 lb 3.2 oz) Height: 1.676 m (5' 6 ) Vital Signs Reviewed as noted. Physical Exam Vitals and nursing note reviewed. Constitutional: General: She is not in acute distress. Appearance: She is not ill-appearing. HENT: Head: Normocephalic and atraumatic. Right Ear: External ear normal. Left Ear: External ear normal. Nose: No congestion or rhinorrhea. Mouth/Throat: Mouth: Mucous membranes are moist. Pharynx: Oropharynx is clear. No oropharyngeal exudate or posterior oropharyngeal erythema. Eyes: General: No scleral icterus. Conjunctiva/sclera: Conjunctivae normal. Pupils: Pupils are equal, round, and reactive to light. Neck: Vascular: No JVD. Trachea: No tracheal deviation. Cardiovascular: Rate and Rhythm: Normal rate and regular rhythm. Heart sounds: Normal heart sounds. Pulmonary: Effort: Pulmonary effort is normal. No respiratory distress. Breath sounds: No stridor. No wheezing, rhonchi or rales. Chest: Chest wall: No tenderness. Genitourinary: Comments: Deferred Musculoskeletal: Cervical back: Neck supple. Right lower leg: No edema. Left lower leg: No edema. Lymphadenopathy: Cervical: No cervical adenopathy. Skin: General: Skin is warm and dry. Coloration: Skin is not jaundiced. Findings: No rash. Neurological: Mental Status: She is alert and oriented to person, place, and time. Psychiatric: Mood and Affect: Mood normal. Behavior: Behavior normal. I personally reviewed selected chart notes, results, interpreted tests, imaging today before seeing the pt; reviewed and discussed w/ pt, questions answered - 12/20/21 Methacholine Challenge test MCT [facility] Reviewed: Positive MCT consistent w/ Bronchial Hyper-responsiveness, as may be seen w/ Asthma, Reactive Airway Disease (PC20 3.76). -- continue inhalers - 11/02/2021 PFT: Spirometry within Normal. Normal lung volume VC 90%. Mildly Reduced Diffusing Capacity DLCO 62%, DL/VA 80% (which normalizes when adjusted for lung volume, suggesting extraparenchymal cause). Possible Mild Obstruction based on possible mild, borderline element of bronchodilator response or reversible airway obstruction ( e.g., asthma, reactive airway disease). --- FEV1/FVC ratio is 75%. FEV1 2.60 L at 85% predicted value. FVC 3.45 L at 89% predicted value. Maximal Mid-Expiratory or Small Airways Flow Rate FEF 25-75% 2.15 L/s at 72% predicted value. PEF 6.11 L/s at 85% predicted value. There was NO OR MILD (only FEF 25-75% improved, by 19%) statistically significant bronchodilator response. - 11/02/2021 6MWT: on Room Air. - As per protocol, pt. walked for 6 minutes, for a distance of 1492 ft (6MWD 454.8 m). - Baseline SpO2 at rest on room air: 98%. - Significant oxygen desaturation while walking: NO (but mildly tachycardic HR 111 while walking); lowest spO2 97% at 1 min; post-test spO2 99%. - Dyspnea: YES, highest Mod. Lina Dyspnea Scale Score: 4/10. IMP: Exercise limitation: NO. Required or Qualified for Oxygen Supplementation: NO. - 11/02/2021 Echocardiogram reviewed: Normal left and right heart function (LVEF 60%), no pulmonary hypertension. Conclusion Normal LV and RV size and function, estimated EF 60%. No significant valvular disease. No evidence of PAH, estimated RVSP 25 mm/Hg. - 11/02/2021 CT Chest Without contrast reviewed: Satisfactory, no acute lung findings or significant abnormalities. Mild, focal linear scarring RML, Lingula, LLL - mild scars or atelectasis; but No Significant, generalized lung inflammation or lung scarring, or enlarged pulmonary artery (NO diffuse ILD, pulmonary fibrosis). - 09/21/21 CXR [facility] Reviewed: MELONIE scarring The cardiac silhouette is normal in size. Mediastinal and hilar contours are within normal limits. There is a small amount of linear atelectasis/scarring in the lingula. The lungs are otherwise clear. Costophrenic angles are sharp. No pneumothorax or suspicious osseous lesion. IMPRESSION:Minimal linear scarring/atelectasis in the lingula. No other acute process is identified in the chest. Return in about 8 weeks (around 03/21/2022). 3-6 mos FOLLOW-UP Patient was advised to call with any questions or concerns. If symptoms worsen or fail to improve patient was advised to call for follow up in our office and/or PCP, or go to the Emergency Dept. Benefits, Risks, Contraindications, and Complications of recommended treatments were explained (and to call if prescriptions are not feasible); and the patient stated understanding and agreement to proceed with plan. 01/24/2022: Some Elements copied from previous notes. I have updated where appropriate, and all reflect current medical decision making from today's encounter. Note: This dictation was generated using Cherry voice recognition software. Please excuse any typographical, grammatical or spelling errors that may have occurred using the system Sabino Khan MD, MPH, [facility] Pulmonary/Critical Care Medicine [facility] 01/24/2022 Nurse Note: Review of Systems Constitutional: Positive for unexpected weight change. Respiratory: Positive for cough, chest tightness and shortness of breath. Cardiovascular: Positive for chest pain and leg swelling. Psychiatric/Behavioral: Positive for sleep disturbance. Nursing Assessment: Oxygen use no Do you have a CPAP-no DME company- none Most recent CT 09/21/2021 Most recent PFT- 11/02/2021 Symptoms include: Increase in shortness of breath-yes Dyspnea upon exertion-yes, walking, stairs, inclines Dyspnea at rest-no Cough- productive-yes, color-Brown Have you had the Covid 19 vaccine-no Do you need a Medication refill?no Pt presents for review of Symptoms Pt has Breztri Pt has rescue inhaler Pt talking about suicide, insisting that she is going to . documented in this encounter [facility] 01-24-2022 Evaluation + Plan note Associated Problem(s): Cigarette nicotin e dependence with nicotine-induced disorder Smoking Cessation Counseling (including rationale, help that can be provided to assist in cessation; risks of smoking-related cancer, COPD or arteriovascular disease, including CAD, PVD or stroke are increased with continued smoking); pt was advised to quit; encouraged to set quit date; 4 minutes spent; current smoker: yes; ready to quit: trying to quit; considering, contemplating; options, aids, discussed with pt. [facility] 01-24-2022 Miscellaneous Notes Associated Problem(s): Cigarette nicotin e dependence with nicotine-induced disorder Smoking Cessation Counseling (including rationale, help that can be provided to assist in cessation; risks of smoking-related cancer, COPD or arteriovascular disease, including CAD, PVD or stroke are increased with continued smoking); pt was advised to quit; encouraged to set quit date; 4 minutes spent; current smoker: yes; ready to quit: trying to quit; considering, contemplating; options, aids, discussed with pt. Associated Problem(s): Reactive airway disease without complication - fmr smoker; episodic dyspnea; may have element of RAD, asthma on PFT - 12/20/21 Methacholine Challenge test MCT [facility] Reviewed: Positive MCT consistent w/ Bronchial Hyper-responsiveness, as may be seen w/ Asthma, Reactive Airway Disease (PC20 3.76). -- continue inhalers - 11/02/2021 PFT: Spirometry within Normal. Normal lung volume VC 90%. Mildly Reduced Diffusing Capacity DLCO 62%, DL/VA 80% (which normalizes when adjusted for lung volume, suggesting extraparenchymal cause). Possible Mild Obstruction based on possible mild, borderline element of bronchodilator response or reversible airway obstruction ( e.g., asthma, reactive airway disease). --- FEV1/FVC ratio is 75%. FEV1 2.60 L at 85% predicted value. FVC 3.45 L at 89% predicted value. Maximal Mid-Expiratory or Small Airways Flow Rate FEF 25-75% 2.15 L/s at 72% predicted value. PEF 6.11 L/s at 85% predicted value. There was NO OR MILD (only FEF 25-75% improved, by 19%) statistically significant bronchodilator response. - Severity: mild-mod - Try triple tx Breztri or Trelegy or other inhaler regimen, if feasible; cont. albuterol as needed; use spacer - may also use duonebs; budesonide+formoterol nebs alternatively - patient benefits from nebulizer treatments - Inhaler technique teaching done/reviewed prev.; rinse mouth after inhaler use especially after inhaled steroids - consider Montelukast - consider Allergy testing, check Eosinophils, IgE prn, as indic - Consider other controller meds, Biologics subsequently, if indicated - Avoid/control triggers; environmental control prn - control GERD as indicated - Smoking cessation reinforced: nonsmoker - monitor PFT prn, as indicated. - consider Peak Flow monitoring, Asthma Action Plan subseq., if necessary - ffup imaging as needed, Chest radiograph as indicated (CT Chest if indicated) - Pulmonary rehab program: as indic., if feasible; rec to stay active (PFT, LVEF may not qualify) - Influenza, pneumococcal, COVID19 vaccines recommended, updated Associated Problem(s): Shortness of breath Suspect multifactorial: cardiopulm disease, deconditioning - PFT, 6MWT, Echo 10/2021: as noted, satisfactory - dyspnea [id number] to PFT, 6mwt, Echo, CT - consider Methacholine challenge test (r/o RAD, asthma, on PFT) - consider referral to [facility] for further eval, management (poss CPET) - recommend some wt loss, stay active - Cardiopulmonary Rehab program, if feasible (PFT, LVEF may not qualify) Associated Problem(s): Secondary pulmonary arterial hypertension (Resolved 01/24/2022) May develop secondary Pulmonary Hypertension related to cardiopulmonary disease (WHO Grp 3). - History of psoriatic arthritis, Raynaud's syndrome; on methotrexate; ff'd by Rheum Dr. Doherty - 11/02/2021 Echocardiogram reviewed: Normal left and right heart function (LVEF 60%), no pulmonary hypertension. Conclusion Normal LV and RV size and function, estimated EF 60%. No significant valvular disease. No evidence of PAH, estimated RVSP 25 mm/Hg. - monitor Echocardiogram as indicated - consider RHC Right heart catheterization, as indicated - optimize underlying conditions - consider sleep study, as indicated Associated Problem(s): Pulmonary scarring Chest radiograph w/ some increased lung markings, MELONIE lung scarring; possible element of Interstitial lung disease ILD - History of psoriatic arthritis, Raynaud's syndrome; on methotrexate; ff'd by Rheum Dr. Doherty - 11/02/2021 CT Chest Without contrast reviewed: Satisfactory, no acute lung findings or significant abnormalities. Mild, focal linear scarring RML, Lingula, LLL - mild scars or atelectasis; but No Significant, generalized lung inflammation or lung scarring, or enlarged pulmonary artery (NO diffuse ILD, GGOs, pulmonary fibrosis, UIP). - likely mild, focal post-inflammatory scarring RML, lingula, LLL - monitor chest imaging, PFT, 6mwt prn, as indic - further evaluation, management pending results, clinical course. documented in this encounter [facility] 01-24-2022 Evaluation + Plan note Associated Problem(s): Reactive airway disease without complication - fmr smoker; episodic dyspnea; may have element of RAD, asthma on PFT - 12/20/21 Methacholine Challenge test MCT [facility] Reviewed: Positive MCT consistent w/ Bronchial Hyper-responsiveness, as may be seen w/ Asthma, Reactive Airway Disease (PC20 3.76). -- continue inhalers - 11/02/2021 PFT: Spirometry within Normal. Normal lung volume VC 90%. Mildly Reduced Diffusing Capacity DLCO 62%, DL/VA 80% (which normalizes when adjusted for lung volume, suggesting extraparenchymal cause). Possible Mild Obstruction based on possible mild, borderline element of bronchodilator response or reversible airway obstruction ( e.g., asthma, reactive airway disease). --- FEV1/FVC ratio is 75%. FEV1 2.60 L at 85% predicted value. FVC 3.45 L at 89% predicted value. Maximal Mid-Expiratory or Small Airways Flow Rate FEF 25-75% 2.15 L/s at 72% predicted value. PEF 6.11 L/s at 85% predicted value. There was NO OR MILD (only FEF 25-75% improved, by 19%) statistically significant bronchodilator response. - Severity: mild-mod - Try triple tx Breztri or Trelegy or other inhaler regimen, if feasible; cont. albuterol as needed; use spacer - may also use duonebs; budesonide+formoterol nebs alternatively - patient benefits from nebulizer treatments - Inhaler technique teaching done/reviewed prev.; rinse mouth after inhaler use especially after inhaled steroids - consider Montelukast - consider Allergy testing, check Eosinophils, IgE prn, as indic - Consider other controller meds, Biologics subsequently, if indicated - Avoid/control triggers; environmental control prn - control GERD as indicated - Smoking cessation reinforced: nonsmoker - monitor PFT prn, as indicated. - consider Peak Flow monitoring, Asthma Action Plan subseq., if necessary - ffup imaging as needed, Chest radiograph as indicated (CT Chest if indicated) - Pulmonary rehab program: as indic., if feasible; rec to stay active (PFT, LVEF may not qualify) - Influenza, pneumococcal, COVID19 vaccines recommended, updated [facility] 01-24-2022 Evaluation + Plan note Associated Problem(s): Shortness of breath Suspect multifactorial: cardiopulm disease, deconditioning - PFT, 6MWT, Echo 10/2021: as noted, satisfactory - dyspnea [id number]-frtxhpeode to PFT, 6mwt, Echo, CT - consider Methacholine challenge test (r/o RAD, asthma, on PFT) - consider referral to [facility] for further eval, management (poss CPET) - recommend some wt loss, stay active - Cardiopulmonary Rehab program, if feasible (PFT, LVEF may not qualify) [facility] [employer] [facility] 01-24-2022 Evaluation + Plan note Associated Problem(s): Secondary pulmonary arterial hypertension (Resolved 01/24/2022) May develop secondary Pulmonary Hypertension related to cardiopulmonary disease (WHO Grp 3). - History of psoriatic arthritis, Raynaud's syndrome; on methotrexate; ff'd by Rheum Dr. Doherty - 11/02/2021 Echocardiogram reviewed: Normal left and right heart function (LVEF 60%), no pulmonary hypertension. Conclusion Normal LV and RV size and function, estimated EF 60%. No significant valvular disease. No evidence of PAH, estimated RVSP 25 mm/Hg. - monitor Echocardiogram as indicated - consider RHC Right heart catheterization, as indicated - optimize underlying conditions - consider sleep study, as indicated [employer] [employer] 01-24-2022 Evaluation + Plan note Associated Problem(s): Pulmonary scarrin g Chest radiograph w/ some increased lung markings, MELONIE lung scarring; possible element of Interstitial lung disease ILD - History of psoriatic arthritis, Raynaud's syndrome; on methotrexate; ff'd by Rheum Dr. Doherty - 11/02/2021 CT Chest Without contrast reviewed: Satisfactory, no acute lung findings or significant abnormalities. Mild, focal linear scarring RML, Lingula, LLL - mild scars or atelectasis; but No Significant, generalized lung inflammation or lung scarring, or enlarged pulmonary artery (NO diffuse ILD, GGOs, pulmonary fibrosis, UIP). - likely mild, focal post-inflammatory scarring RML, lingula, LLL - monitor chest imaging, PFT, 6mwt prn, as indic - further evaluation, management pending results, clinical course. [facility] [employer] 01-03-2022 History of Present illness Narrative Formatting of this note is different fro m the original. [facility] [address] ([address]) [facility] [address] [facility] [id number] Patient Name: Shravan Davenport Age: 46 y.o. Gender: female Referring Physician: No ref. provider found Chief Complaint Patient presents with Consult Extreme bloating, nausea, vomiting, SOB & choking HPI: Patient Primary Symptoms are: heartburn, regurgitation, nausea, and bloating Onset of Symptoms: Patient present with complaints of reflux symptoms for the last 3 years. She complains of regurgitation, heartburn, bloating, and nausea. She states that bloating is the most severe symptom. She states she has trouble breathing because the bloating is so bad. She says I have to go to bed after eating because I am so tired . States she will be in bed for days. She states she is having trouble when eating and it is going down the wrong pipe . She states it happens more frequent with apples and saliva. Denies any significant dysphagia. Her last EGD was in [address] Scruggs that was normal. She is currently on Prilosec for the symptoms. She states it is not helping with the symptoms. She states she is not eating much but continues to gain weight. Patient has a history of chronic constipation. She had a CT of the abdomen on 09/21/20 that showed: 1. Findings suggestive of possible mild enteritis with multiple fluid-filled nondilated loops of small bowel. No worrisome bowel wall edema. Moderate amount stool within the proximal colon suggesting possible constipation. No findings of colitis. No bowel obstruction. 2. No other acute process seen within the abdomen or pelvis. Frequency of Symptoms: Daily Severity of Symptoms: increasing in severity Sleep Disruption: yes Aggravating Factors: spicy foods Alleviating Factors: PPI Medications Tried: Prilosec How many years on a PPI: N/A HRQL SCORE: 49 Drug use: Denies Alcohol use: Denies Metal allergy: Denies Past Medical History: Diagnosis Date Anxiety Arthritis 2021 Psoriatic Asthma Back pain Degenerative disc disease at L5-S1 level including L4 Depression Discoloration of skin of lower leg GERD (gastroesophageal reflux disease) Hypothyroidism, adult IBS (irritable bowel syndrome) with constipation Leg pain Pituitary tumor Right hand pain Past Surgical History: Procedure Laterality Date breast augmentation COLONOSCOPY N/A 03/17/2019 Procedure: COLONOSCOPY; Surgeon: Ricky Scruggs MD; [facility] [facility]; Service: Gastroenterology EGD N/A 03/17/2019 Procedure: ESOPHAGOGASTRODUODENOSCOPYwith bx; Surgeon: Ricky Scruggs MD; [place] [facility]; Service: Gastroenterology HYSTERECTOMY 2017 OOPHORECTOMY Right TONSILLECTOMY Bilateral 10/29/2018 Procedure: TONSILLECTOMY; Surgeon: Gonzalez Martinez Jr., DO; Location: Main OR; Service: Otolaryngology WRIST SURGERY Left hardware No Known Allergies Current Outpatient Medications Medication Sig Dispense Refill adalimumab (Humira,CF, Pen) 40 mg/0.4 mL PnKt 40 mg injection every 2 weeks albuterol 90 mcg/actuation inhaler inhale 2 puffs by mouth and INTO THE LUNGS every 4 hours if neede... (REFER TO PRESCRIPTION NOTES). yyrtibbrmu-mjuezsjp-bdtgbcjnwj (Breztri Aerosphere) 160-9-4.8 mcg/actuation HFAA Inhale 2 puffs 2 (two) times a day . cholecalciferol, vitamin D3, 1,250 mcg (50,000 unit) capsule Take 1 capsule by mouth over 168 hr . clobetasoL (TEMOVATE) 0.05 % cream Apply topically 2 (two) times a day . estradiol (ESTRACE) 2 MG tablet Take 2 mg by mouth . folic acid (FOLVITE) 1 MG tablet Take 4,000 mcg by mouth daily . glycopyrrolate (ROBINUL) 1 mg tablet Take 1 mg by mouth daily . levothyroxine (SYNTHROID, LEVOTHROID) 25 MCG tablet Take 25 mcg by mouth daily . metoprolol tartrate (LOPRESSOR) 50 MG tablet Take 50 mg by mouth 2 (two) times a day . omeprazole (PRILOSEC) 40 MG capsule Take 40 mg by mouth . ondansetron (ZOFRAN) 4 MG tablet take 1 tablet by mouth every 8 hours if needed for nausea Ozempic 0.25 mg or 0.5 mg(2 mg/1.5 mL) Pen inject 0.25 milligrams subcutaneously every week predniSONE (DELTASONE) 5 MG tablet take 2 tablets by mouth every morning for 1 MONTH then 1 tablet e... (REFER TO PRESCRIPTION NOTES). Restasis 0.05 % ophthalmic emulsion Administer 1 drop to both eyes every 12 (twelve) hours . sulindac (CLINORIL) 200 MG tablet Take 200 mg by mouth every 12 (twelve) hours as needed . venlafaxine (EFFEXOR-XR) 150 MG 24 hr capsule Take 150 mg by mouth daily . hydrOXYzine (ATARAX) 25 MG tablet Take 25 mg by mouth 3 (three) times a day as needed for itching . No current facility-administered medications for this visit. Social History Tobacco Use Smoking status: Every Day Packs/day: 0.50 Years: 10.00 Pack years: 5.00 Types: Cigarettes Smokeless tobacco: Never Vaping Use Vaping Use: Never used Substance Use Topics Alcohol use: Yes Alcohol/week: 0.0 standard drinks Comment: Occasional Drug use: No Family History Problem Relation Age of Onset Heart disease Father Heart attack Father 46 bypass Coronary artery disease Father Stroke Father Diabetes Father Neuropathy Father REVIEW OF SYSTEMS Pertinent positives are listed in HPI, PMSH, SH, ALL, otherwise all systems reviewed below are negative. The following systems were reviewed: [x] Const (fevers, chills, wt. loss, fatigue) [x] CV (HTN, CP, GARZA, edema, DVT) [x] Resp (SOB, pleurisy, asthma, apnea) [x] GI (N, V, D, C, M, abd pain, appetite) [x] Musc (back pain, joint stiffness, gout) [x] Neuro (seizures, syncope, paralysis) [x] Psych (depression, anxiety) [x] Endo (hot/cold intol, polyuria[DM]) [x] Hem/Lymph (Anemia, LA, bleeding) [x] Allerg/Immun (seasonal, immuniz) [x] Eyes (diplopia, cataracts) [x] ENT/mouth (dysphagia, epistaxis) [x] (dysuria, hematuria) [x] Skin/Breast (moles, rash, lumps, nipple changes) Pertinent Positives: See HPI Pertinent Negatives: See HPI Physical Exam: BP 132/86 (BP Location: Right arm, Patient Position: Sitting, BP Cuff Size: Adult) Pulse 92 Ht 5' 6 Wt 97.1 kg (214 lb) SpO2 97% BMI 34.54 kg/m Body mass index is 34.54 kg/m . Constitutional: Well nourished, well developed person in no acute distress. Ambulates without difficulty. Head: Atraumatic and normocephalic. Face: Within normal limits. Eyes: Pupils equal, round, reactive to light. Sclera white. Mouth: Moist mucous membranes, normal dentation. Neck: supple, trachea midline,no masses, no incisions. Lymphatic: No cervical or inguinal lymphadenopathy. Heart: Regular rate and rhythm. Lungs: Clear to auscultation. Abdomen: Soft, non-distended, non-tender, no heptasplenomegaly, no umbilica, incisional, femoral, or inguinal hernias. Pelvis: Stable, non-tender. Skin: Warm, moist, normal skin turgor. Peripheral Vascular: Palapable carotid, radial, and femoral pulses, no peripheral edema. Neuropsych: Alert and oriented, judgement and insight intact. Normal Gait. Assessment: 1. Bloating NM Gastric Emptying Case Request Operating Room: ESOPHAGOGASTRODUODENOSCOPY WITH HODGE, PROLONGED ACID REFLUX TEST 48H PH 2. Heartburn NM Gastric Emptying Case Request Operating Room: ESOPHAGOGASTRODUODENOSCOPY WITH HODGE, PROLONGED ACID REFLUX TEST 48H PH 3. Gaseous regurgitation NM Gastric Emptying Case Request Operating Room: ESOPHAGOGASTRODUODENOSCOPY WITH HODGE, PROLONGED ACID REFLUX TEST 48H PH 4. Nausea NM Gastric Emptying Case Request Operating Room: ESOPHAGOGASTRODUODENOSCOPY WITH HODGE, PROLONGED ACID REFLUX TEST 48H PH Orders Placed This Encounter Procedures NM Gastric Emptying Case Request Operating Room: ESOPHAGOGASTRODUODENOSCOPY WITH HODGE, PROLONGED ACID REFLUX TEST 48H PH Plan: I had a detailed discussion with the patient about diagnostic testing. Risk, benefits, and alternatives were discussed prior to obtaining consent. EGD with Biopsy, Hodge pH study with Interpretation, Gastric Emptying Study I instructed the patient to stop their Prilosec one week prior to the procedure date. Crystal Medina CNP documented in this encounter [facility] 11-02-2021 Procedure note Associated Order(s): PFT COMPLETE 11/02/2021 Shravan Davenport is a 46 y.o. female, Date of :1975. Dx: shortness of breath. Ht 66 in, Wt 200 lbs. Smoker: yes. Medications not listed. Pt efforts: good. Data appear acceptable and reproducible. Albuterol given for postbronchodilator spirometry. Procedure: Pulmonary Function Test Complete PFT including spirometry, spirometry with bronchodilator response, lung volumes, Diffusion capacity and Flow Volume Loop were performed during this session. Spirometry: FEV1/FVC ratio is 75%. FEV1 2.60 L at 85% predicted value. FVC 3.45 L at 89% predicted value. Maximal Mid-Expiratory or Small Airways Flow Rate FEF 25-75% 2.15 L/s at 72% predicted value. PEF 6.11 L/s at 85% predicted value. There was NO OR MILD (only FEF 25-75% improved, by 19%) statistically significant bronchodilator response. Maximum voluntary ventilation (MVV) 74 L/min; which is at 60% predicted value, REDUCED, [id number] from the FEV1 (suggesting either difficulty or fatigue during the maneuver, and/or hyperventilation-induced bronchospasm; please correlate clinically). Lung volumes : TLC NOT DONE; Peripheral Air Trapping: NO. VC 3.46 L at 90% predicted value. FRC N2 1.31 L at 50% predicted value. Diffusion Capacity : DLCO at a single breath at 62% predicted value. DLCO corrected for alveolar volume (DL/VA) at 80% predicted value. Flow volume loop was reviewed: within Normal; suggestive of Obstructive pattern. Upper Airway Obstruction Pattern: NO. Analysis: 1. Spirometry, Flow Volume Loops: within NORMAL limits Ventilatory Defect. 2. FEF 25-75% Maximal Mid-Expiratory or Small Airways Flow Rate: REDUCED, suggesting possible Small Airways Flow limitation (small airways dysfunction/obstruction, although this parameter has poor reproducibility in general). 3. PEF Peak Expiratory Flow rate: NORMAL. 4. Statistically significant bronchodilator response: NO OR MILD, BORDERLINE (this does not preclude clinical benefit from bronchodilators; results may be affected by recent use of bronchodilators, steroids, etc.). 5. MVV: REDUCED. 6. Lung Volumes: Total Lung Capacity was NOT DONE, VC NORMAL; Peripheral Air Trapping: NO. 7. Diffusion Capacity, gas transfer/gas exchange, was MILDLY REDUCED. However, Diffusion Capacity normalizes when adjusted or corrected for lung/alveolar volume; the DL/VA ratio was NORMAL; suggesting more of extra-parenchymal (e.g., body habitus, obesity, chest wall restriction, neuromuscular disease, pleural effusions, etc.) more than intra-parenchymal abnormality (e.g., Emphysema, Pulm. Fibrosis, pulmonary vascular disease, etc.) Impression: Results would be compatible with: - 11/02/2021 PFT: Spirometry within Normal. Normal lung volume VC 90%. Mildly Reduced Diffusing Capacity DLCO 62%, DL/VA 80% (which normalizes when adjusted for lung volume, suggesting extraparenchymal cause). Possible Mild Obstruction based on possible mild, borderline element of bronchodilator response or reversible airway obstruction ( e.g., asthma, reactive airway disease). Please correlate clinically. (The above report was entered in part using [employer] voice recognition medical dictation software. Although I have reviewed this report for accuracy, certain words and phrases may not be entered as intended. Please excuse typographical and grammatical errors.) [facility] 11-02-2021 Procedure note Associated Order(s): PFT COMPLETE 11/02/2021 Shravan Davenport is a 46 y.o. female, Date of :1975. Dx: shortness of breath. Ht 66 in, Wt 200 lbs. Smoker: yes. Medications not listed. Pt efforts: good. Data appear acceptable and reproducible. Albuterol given for postbronchodilator spirometry. Procedure: Pulmonary Function Test Complete PFT including spirometry, spirometry with bronchodilator response, lung volumes, Diffusion capacity and Flow Volume Loop were performed during this session. Spirometry: FEV1/FVC ratio is 75%. FEV1 2.60 L at 85% predicted value. FVC 3.45 L at 89% predicted value. Maximal Mid-Expiratory or Small Airways Flow Rate FEF 25-75% 2.15 L/s at 72% predicted value. PEF 6.11 L/s at 85% predicted value. There was NO OR MILD (only FEF 25-75% improved, by 19%) statistically significant bronchodilator response. Maximum voluntary ventilation (MVV) 74 L/min; which is at 60% predicted value, REDUCED, [id number] from the FEV1 (suggesting either difficulty or fatigue during the maneuver, and/or hyperventilation-induced bronchospasm; please correlate clinically). Lung volumes : TLC NOT DONE; Peripheral Air Trapping: NO. VC 3.46 L at 90% predicted value. FRC N2 1.31 L at 50% predicted value. Diffusion Capacity : DLCO at a single breath at 62% predicted value. DLCO corrected for alveolar volume (DL/VA) at 80% predicted value. Flow volume loop was reviewed: within Normal; suggestive of Obstructive pattern. Upper Airway Obstruction Pattern: NO. Analysis: 1. Spirometry, Flow Volume Loops: within NORMAL limits Ventilatory Defect. 2. FEF 25-75% Maximal Mid-Expiratory or Small Airways Flow Rate: REDUCED, suggesting possible Small Airways Flow limitation (small airways dysfunction/obstruction, although this parameter has poor reproducibility in general). 3. PEF Peak Expiratory Flow rate: NORMAL. 4. Statistically significant bronchodilator response: NO OR MILD, BORDERLINE (this does not preclude clinical benefit from bronchodilators; results may be affected by recent use of bronchodilators, steroids, etc.). 5. MVV: REDUCED. 6. Lung Volumes: Total Lung Capacity was NOT DONE, VC NORMAL; Peripheral Air Trapping: NO. 7. Diffusion Capacity, gas transfer/gas exchange, was MILDLY REDUCED. However, Diffusion Capacity normalizes when adjusted or corrected for lung/alveolar volume; the DL/VA ratio was NORMAL; suggesting more of extra-parenchymal (e.g., body habitus, obesity, chest wall restriction, neuromuscular disease, pleural effusions, etc.) more than intra-parenchymal abnormality (e.g., Emphysema, Pulm. Fibrosis, pulmonary vascular disease, etc.) Impression: Results would be compatible with: - 11/02/2021 PFT: Spirometry within Normal. Normal lung volume VC 90%. Mildly Reduced Diffusing Capacity DLCO 62%, DL/VA 80% (which normalizes when adjusted for lung volume, suggesting extraparenchymal cause). Possible Mild Obstruction based on possible mild, borderline element of bronchodilator response or reversible airway obstruction ( e.g., asthma, reactive airway disease). Please correlate clinically. (The above report was entered in part using [employer] recognition medical dictation software. Although I have reviewed this report for accuracy, certain words and phrases may not be entered as intended. Please excuse typographical and grammatical errors.) documented in this encounter [facility] 10-31-2021 History of Present illness Narrative Formatting of this note is different fro m the original. History of Present Illness Presence of Pain: complains of pain/discomfort Pain Location: (Everywhere) Select Pain Scale: DVPRS (Defense and Veterans Pain Rating Scale) (Adult-Cognitively Intact) DVPRS: Rest: 4- mild pain DVPRS: Activity: 4- mild pain Select Pain Scale: DVPRS (Defense and Veterans Pain Rating Scale) (Adult-Cognitively Intact) Pain Frequency: constant Pain Quality: aching. Total time spent in this encounter was 42 minutes. Patient has had a serious adverse event to medication which could have increased morbidity or mortality. Patient seen as add on patient today. Patient is here today for her 2 Month F/U. Patient states she is having severe itching on her JOVANI foot. Patient states she stopped the Methotrexate due to having severe hair loss, rash on face and cough. Patient states she is also having stomach issues. Energy level is terrible. Dry mouth is ok. Blurred vision is the same. Dry eyes are the same. Photophobia is not always. Breathing was worse and now it is a little bit better this week. Nausea is the same. Sweating is the same. Joint pain is a little bit better, Back pain is the a little better. Raynaud's is worse. Nail dystrophy is the same. Dry skin is the same. Rash is yeah. Prednisone is 5 mg 1 pill a day. I have been told that Prednisone is a high risk medication. Review of Systems Constitutional: Positive for fatigue. HENT: Dry mouth Eyes: Positive for photophobia and visual disturbance. Blurred vision Dry eyes Respiratory: Positive for cough and shortness of breath. Cardiovascular: Negative. Gastrointestinal: Positive for abdominal distention, abdominal pain and nausea. Bloating Endocrine: Sweating Genitourinary: Negative. Musculoskeletal: Positive for arthralgias and back pain. Skin: Positive for color change and rash. History of raynaud's Nail dystrophy Dry skin Allergic/Immunologic: Negative. Neurological: Negative. Hematological: Negative. Psychiatric/Behavioral: Depression Vitals: Blood pressure 132/84, pulse 61, temperature 98 F (36.7 C), temperature source Temporal, height 1.676 m (5' 6 ), weight 92.5 kg (204 lb), SpO2 97 %, not currently . Physical Exam Vitals and nursing note reviewed. Constitutional: Appearance: Normal appearance. She is obese. Comments: Tearful and moves easily around the room HENT: Head: Normocephalic and atraumatic. Right Ear: External ear normal. Left Ear: External ear normal. Nose: Nose normal. Mouth/Throat: Mouth: Mucous membranes are dry. Comments: Mask over chin Eyes: Extraocular Movements: Extraocular movements intact. Conjunctiva/sclera: Conjunctivae normal. Pupils: Pupils are equal, round, and reactive to light. Comments: Dry eyes Cardiovascular: Rate and Rhythm: Normal rate and regular rhythm. Pulses: Radial pulses are 2+ on the right side and 2+ on the left side. Heart sounds: Normal heart sounds. Pulmonary: Effort: Pulmonary effort is normal. Breath sounds: Normal breath sounds. Abdominal: General: Bowel sounds are normal. Palpations: Abdomen is soft. Comments: obese Musculoskeletal: Right shoulder: Normal. Left shoulder: Normal. Right upper arm: Normal. Left upper arm: Normal. Right elbow: Normal. Left elbow: Normal. Right forearm: Normal. Left forearm: Normal. Right wrist: Decreased range of motion. Left wrist: Decreased range of motion. Right hand: Decreased range of motion. Decreased strength. Left hand: Decreased range of motion. Decreased strength. Cervical back: Neck supple. Right upper leg: Normal. Left upper leg: Normal. Right knee: Crepitus present. Left knee: Crepitus present. Right lower leg: Normal. Left lower leg: Normal. Right ankle: Normal. Left ankle: Normal. Comments: Synovial cyst index and 5th PIP. Oa changes hands and feet. Patient did not take of shoes for exam Skin: General: Skin is warm and dry. Findings: Rash present. Comments: Nail dystrophy Did not examine historical rash on buttocks. Neurological: Mental Status: She is alert and oriented to person, place, and time. Cranial Nerves: Cranial nerves are intact. Sensory: Sensation is intact. Motor: Weakness present. Comments: Decreased community fundraiser strength both hands Psychiatric: Mood and Affect: Mood normal. Behavior: Behavior normal. Thought Content: Thought content normal. Judgment: Judgment normal. Neurological Exam Mental Status Alert. Oriented to person, place, and time. Cranial Nerves CN II: Vision test: Dry eyes. CN III, IV, : Extraocular movements intact bilaterally. Pupils equal round and reactive to light bilaterally. Sensory Normal sensation. Decreased community fundraiser strength both hands. Assessment and Plan Encounter Diagnoses Name Primary? 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 Lichen planus Rash Normochromic normocytic anemia Abnormal x-ray CRP elevated Dry eyes Family history of discoid lupus History of Raynaud's syndrome Ketonuria alf current use of non-steroidal anti-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 (NSAID) alf current use of systemic steroids Multiple chemical sensitivity syndrome, sequela Interstitial lung disease Raynaud's disease without gangrene Dry mouth Vitamin D deficiency Xerostomia Keratoconjunctivitis sicca Bilateral calcaneal spurs Degenerative cervical disc Enchondroma of bone of hand, right Lumbar degenerative disc disease Osteoarthritis of facet joint of cervical spine Osteochondral defect Primary osteoarthritis of both feet Primary osteoarthritis of both knees Primary osteoarthritis of right shoulder 1. Time was spent with the patient today in education in re: to all their medical conditions. A complete H&P&ROS was obtained and is either in this note or in the EHR. Please do not hesitate to contact me with any questions or concerns re: this patient. Past History Past medical, surgical, family, and social histories have been reviewed and updated with the patient today and are located elsewhere in the medical record. 2. Thank you for allowing me to participate in the care of your patient. With your permission I would like to F/U with your patient. 3. Cardiology F/U per Dr. Perez 4. Stop Sulindac - it does not help and does not bother her 5. Rx given for PT/OT - patient has not started it yet. Patient still has not gone. 6. Negative RF, CCP, MILVIA, dsDNA, BOSSMAN , Hep A&B&C serology, Lyme disease, MPO (times 2), cANCA (times 2), pANCA (times 2), Atypical pANCA (times 2), HLA-B27, Celiac, NIKHIL, LAC, 7. Normal CPK 8. C3 was normal at 138.3 9. C4 was normal at 26.6 10. Hgb is low at 11.6 11. Rx given for Prednisone 5 mg 2 pills a day for 1 month then 1 pill a day for 1 month then 1 pill every other day for 1 month then stop 12. Rx given for Humira 13. Mild bony buttressing at the posterolateral femoral head.neck junctions B/L with small synovial herniation pit at right femoral head/neck junction 14. Possible family history of psoriasis 15. TB test toay 15. UA showed no blood or protein on dip with trace ketones. 16. ORIF L wrist S/P 17. Humira assistance 18. Patient told that they could use OTC dry mouth preparations such as Biotene. Patient told they could use OTC artificial tears. 19. Optho F/U per Dr. Vargas 20. Vit d under care of PCP 21. Patient given educational material on Raynaud's in the form of a pamphlet from the arthritis foundation. Patient told that keeping warm and taking a baby ASA 81 mg a day would be the cornerstone of treatment. Beta blockers can aggravate Raynaud's. Alpha blockers and calcium channel Blockers will help Raynaud's 22. Derm F/U per Mario 23. Tylenol PRN 24. IBP upset stomach 25. Monitor CBC/LFT/Renal func every 6-12 months as long as patient is on daily NSAID 26. CRP was elevated at 17.83 and still is at 12.7 27. Hold Humira 2 weeks before and 2 weeks after any surgery or live vaccine (shingles). Hold Humira anytime have an infection can restart once of off ATB and/or antiviral and free of infection. Hold Humira if open wound can restart once wound has healed. 28. Lab on or about 01/14/2022 29. At patient's request will set up with chronic pain management - patient cancelled her appointment 30. At patient's request will set up with Dr. Zapata at [facility] for hip pain - this appointment is coming up - has not seen yet. Has not seen yet. 31. Patient declines referral to hand surgeon 32. Patient declines referral to podiatry 33. ESR was normal at 25 and still is at 20 34. Uric acid was normal at 4.8 35. F/U with me in 3 months 36. Pulmonary F/U per Dr. khan 37. Glucose was elevated at 103 and patient is going to F/U with PCP 38. Sodium was low at 135 39. Urology F/U per Dr. Fitzgerald. 40. Rec: GI eval and F/U for nausea 41. At patient's request will set up with GI - patient declines 42 Rec: psych eval and F/U for depression 43. PR3 was elevated at 6.2 and then negative 44. SUJATHA level was normal at 20 45. Patient declines referral to sports medicine 46. Endo F/U per [facility] 47. If raynaud's problems continue rec: vascular medicine eval 48. Patient stopped Methotrexate due to nausea and bloating that she still has and a rash on her face and coughing. 49. Z-pack caused heart damage per damage documented in this encounter [facility] 10-24-2021 Note HNO ID: [id number] Author: Eleuterio Hardy APRN.MACHINE ASSEMBLER Service: ? Author Type: Nurse Practitioner Type: Progress Notes Filed: 11/03/2021 11:30 AM Note Text: Skin Biopsy Procedure Note Skin Biopsy Accession Number: [id number] Biopsy Date: 10/24/2021 Referring physician: Abigail Perez UNIVERSAL PROTOCOL / SAFETY CHECKLIST Procedure to be Performed: Skin Biopsy Sign In: A Moment of CARE was completed. Personnel directly involved with the procedure wore the appropriate PPE (Personal Protective Equipment). Patient/Surrogate Stated/Verified: PATIENT VERIFIED(optional for EMERGENT procedures): Patient name, Date of , Relevant allergies and The intended procedure Time Out Communication: Intended patient and procedure match the source documents. Consent documented and matches the intended procedure. Sign Out: SIGN OUT (optional for EMERGENT procedures): All specimen containers correctly labeled. ELI Cid APRN.MACHINE ASSEMBLER Sign in Pt ID verified with patient. Yes, by name and date. Is patient allergic to lidocaine, epinephrine, or bandage adhesive: No Is patient on anticoagulant medicine or blood thinners: No Does patient have a history of surgery on legs or feet: No Procedure verified with the patient: Yes, left leg biopsies, 2 sites. History 46 year old female with symptoms of tachycardia, shortness of breath, numbness, tingling, discoloration and burning of bilateral feet for 3 years is referred for skin biopsy to evaluate for possible small fiber neuropathy. Written aftercare was given and explained: Yes Patient verbally agrees to proceed with the procedure. Sign in completed: Yes Procedure Note Procedure confirmed with provider and child support officer. Yes, left leg x2 skin biopsies. The procedure was discussed with the patient, including the risks, benefits, instruments and personnel involved in this procedure. All of the patient?s questions were answered. Informed consent discussed and signed: Yes Audible time-out documented: Yes Procedure Start Time: 1531 Procedure: After the patient was placed in a lateral position the following biopsy sites were identified: left distal leg and left distal thigh. These sites were cleansed with Chloroprep and injected with 0.5cc 1% Lidocaine. Two skin biopsies were obtained using a 3mm biopsy punch and removed with the forceps and surgical blade technique. Bleeding was minimal and hemostasis was obtained by pressure. Sterile dressing was applied to each biopsy site. Audible sign out completed: All specimens labeled, no equipment issues. Procedure End Time: 1537 Patient tolerated procedure well, without complications. Patient was discharged home. Specimens were labeled and sent to [facility]. Procedure was performed by: Eleuterio Hardy APRN.MACHINE ASSEMBLER Assistance in supply/equipment preparation performed by: Rachael Kaur LPN Sign out is complete. November 03, 2021 Skin biopsy processing and interpretation completed. Please see Procedure section of EMR for report. Gaviota Myers MD, PhD [facility] 10-24-2021 Note HNO ID: [id number] Author: Lore Sutherland Service: ? Author Type: ? Type: Progress Notes Filed: 10/24/2021 3:34 PM Note Text: UNIVERSAL PROTOCOL / SAFETY CHECKLIST Procedure to be Performed: QSART AND ANS W/O TILT Sign In: A Moment of CARE was completed. Personnel directly involved with the procedure wore the appropriate PPE (Personal Protective Equipment). Patient/Surrogate Stated/Verified: PATIENT VERIFIED(optional for EMERGENT procedures): Patient name, Date of , Relevant allergies and The intended procedure Time Out Communication: Intended patient and procedure match the source documents. Correct side/site marked and visible. Medications required for procedure verified. Sign Out: SIGN OUT (optional for EMERGENT procedures): Post-procedure follow-up management communicated and Plan of Care Visit completed when applicable. Lore Sutherland [facility] 10-24-2021 History of Present illness Narrative Skin Biopsy Procedure Note Skin Biopsy Accession Number: [id number] Biopsy Date: 10/24/2021 Referring physician: Abigail Perez UNIVERSAL PROTOCOL / SAFETY CHECKLIST Procedure to be Performed: Skin Biopsy Sign In: A Moment of CARE was completed. Personnel directly involved with the procedure wore the appropriate PPE (Personal Protective Equipment). Patient/Surrogate Stated/Verified: PATIENT VERIFIED(optional for EMERGENT procedures): Patient name, Date of , Relevant allergies and The intended procedure Time Out Communication: Intended patient and procedure match the source documents. Consent documented and matches the intended procedure. Sign Out: SIGN OUT (optional for EMERGENT procedures): All specimen containers correctly labeled. ELI Cid APRN.MACHINE ASSEMBLER Sign in Pt ID verified with patient. Yes, by name and date. Is patient allergic to lidocaine, epinephrine, or bandage adhesive: No Is patient on anticoagulant medicine or blood thinners: No Does patient have a history of surgery on legs or feet: No Procedure verified with the patient: Yes, left leg biopsies, 2 sites. History 46 year old female with symptoms of tachycardia, shortness of breath, numbness, tingling, discoloration and burning of bilateral feet for 3 years is referred for skin biopsy to evaluate for possible small fiber neuropathy. Written aftercare was given and explained: Yes Patient verbally agrees to proceed with the procedure. Sign in completed: Yes Procedure Note Procedure confirmed with provider and child support officer. Yes, left leg x2 skin biopsies. The procedure was discussed with the patient, including the risks, benefits, instruments and personnel involved in this procedure. All of the patient s questions were answered. Informed consent discussed and signed: Yes Audible time-out documented: Yes Procedure Start Time: 1531 Procedure: After the patient was placed in a lateral position the following biopsy sites were identified: left distal leg and left distal thigh. These sites were cleansed with Chloroprep and injected with 0.5cc 1% Lidocaine. Two skin biopsies were obtained using a 3mm biopsy punch and removed with the forceps and surgical blade technique. Bleeding was minimal and hemostasis was obtained by pressure. Sterile dressing was applied to each biopsy site. Audible sign out completed: All specimens labeled, no equipment issues. Procedure End Time: 1538 Patient tolerated procedure well, without complications. Patient was discharged home. Specimens were labeled and sent to [facility]. Procedure was performed by: Eleuterio Hardy APRN.MACHINE ASSEMBLER Assistance in supply/equipment preparation performed by: Rachael Kaur LPN Sign out is complete. documented in this encounter [facility] 10-13-2021 History of Present illness Narrative Formatting of this note is different fro m the original. Patient is a 46 y.o. female who came to be evaluated and managed for dyspnea Other (New Patient-ILD/SOB) . ICD-10-CM 1. Shortness of breath R06.02 EXERCISE-6 MIN. WALK PFT COMPLETE 2. Secondary pulmonary arterial hypertension I27.21 ECHOCARDIOGRAM 3. Interstitial lung disease J84.9 CT CHEST WITHOUT CONTRAST 4. Screening for viral disease Z11.59 [facility] 1 - NASOPHARYNGEAL Problem List Items Addressed This Visit Interstitial lung disease Chest radiograph w/ some increased lung markings, MELONIE lung scarring; possible element of Interstitial lung disease ILD - History of psoriatic arthritis, Raynaud's syndrome; on methotrexate; ff'd by Rheum Dr. Doherty - CT Chest - monitor chest imaging, PFT, 6mwt prn, as indic - further evaluation, management pending results, clinical course. Relevant Orders CT CHEST WITHOUT CONTRAST Secondary pulmonary arterial hypertension May develop secondary Pulmonary Hypertension related to cardiopulmonary disease (WHO Grp 3). - History of psoriatic arthritis, Raynaud's syndrome; on methotrexate; ff'd by Rheum Dr. Doherty - monitor Echocardiogram as indicated - consider RHC Right heart catheterization, as indicated - optimize underlying conditions - consider sleep study, as indicated Relevant Orders ECHOCARDIOGRAM Shortness of breath - Primary Suspect multifactorial: cardiopulm disease, deconditioning - PFT, 6MWT, Echo - recommend some wt loss, stay active - Cardiopulmonary Rehab program, if feasible Relevant Orders EXERCISE-6 MIN. WALK PFT COMPLETE Other Visit Diagnoses Screening for viral disease Relevant Orders [facility] 1 - NASOPHARYNGEAL HPI 10/13/2021 Background History - fmr Smoker; hx of dyspnea. - History of psoriatic arthritis, Raynaud's syndrome; on methotrexate; ff'd by Rheum Dr. Doherty - no recent PFT, CT, Echo - 09/21/21 CXR [facility] Reviewed: MELONIE scarring The cardiac silhouette is normal in size. Mediastinal and hilar contours are within normal limits. There is a small amount of linear atelectasis/scarring in the lingula. The lungs are otherwise clear. Costophrenic angles are sharp. No pneumothorax or suspicious osseous lesion. IMPRESSION:Minimal linear scarring/atelectasis in the lingula. No other acute process is identified in the chest. Current Outpatient Medications: Cholecalciferol (vitamin D3) 1.25 MG (86657 UT) capsule, take 1 capsule by mouth every week, Disp: , Rfl: clobetasol 0.05 % Cream, Apply topically Twice daily., Disp: , Rfl: cyclosporin 0.05 % Emulsion ophthalmic suspension, 1 drop., Disp: , Rfl: estradiol 2 MG tablet, Take 1 tablet by mouth daily., Disp: 30 tablet, Rfl: 1 folic acid 1 MG tablet, 4 po q day, Disp: 120 tablet, Rfl: 11 levothyroxine 25 MCG tablet, Take 1 tablet by mouth daily., Disp: 90 tablet, Rfl: 2 methotrexate 2.5 MG tablet, 3 po one day a week, Disp: 12 tablet, Rfl: 5 metoprolol 25 MG tab regular release, take 1 tablet by mouth twice a day with food, Disp: , Rfl: metoprolol succinate 100 MG tablet XL, Take 100 mg by mouth 2 times daily., Disp: , Rfl: metoprolol succinate 100 MG tablet XL, Take 100 mg by mouth 2 times daily., Disp: , Rfl: omeprazole [address] capsule, Take 40 mg by mouth daily., Disp: , Rfl: ondansetron 4 MG tablet, Take 4 mg by mouth every 8 hours as needed., Disp: , Rfl: oxaprozin 600 MG tablet, 2 po q day, Disp: 60 tablet, Rfl: 11 predniSONE 5 MG tablet, 4 po q AM for 2 weeks then 3 po q AM for 2 weeks then 2 po q AM for 2 weeks then 1 po q AM thereafter, Disp: 120 tablet, Rfl: 5 Venlafaxine HCl 225 MG tablet ER, take 1 tablet by mouth once daily with food, Disp: , Rfl: Past Medical History: Diagnosis Date Arrhythmia Depression GERD (gastroesophageal reflux disease) Past Surgical History: Procedure Laterality Date HYSTERECTOMY TOTAL ABDOMINAL LAPAROSCOPIC ORIF WRIST Left with hardware TONSILLECTOMY TUBAL LIGATION Social History Tobacco Use Smoking status: Former Smoker Types: Cigarettes Quit date: 09/25/2021 Years since quittin.0 Smokeless tobacco: Never Used Substance Use Topics Alcohol use: Yes Comment: social Family History Problem Relation Age of Onset Diabetes Father Heart Disease - Other Father Diabetes Paternal Grandmother No Known Allergies Review of Systems Nurse Note: Review of Systems Constitutional: Positive for unexpected weight change. HENT: Positive for sore throat. Eyes: Positive for pain. Respiratory: Positive for cough, chest tightness, shortness of breath and wheezing. Cardiovascular: Positive for leg swelling. Gastrointestinal: Positive for constipation, diarrhea and vomiting. Musculoskeletal: Positive for neck pain. Hematological: Bruises/bleeds easily. Nursing Assessment: Oxygen use no Do you have a CPAP-no DME company- none Most recent CT 09/21/2021 Most recent PFT- none Symptoms include: Increase in shortness of breath-yes, started 2 years ago , being seen at [facility] Dyspnea upon exertion-yes, walking, stairs, inclines Dyspnea at rest-no Cough- productive-no Have you had the Covid 19 vaccine-no Do you need a Medication refill?no Pt presents for review of symptoms-SOB Pt has no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 HCPs (not separately reported). Eleuterio Hardy APRN.CLAUDIO documented in this encounter [facility] 09-20-2021 Note HNO ID: [id number] Author: Abigail Perez, DO Service: ? Author Type: Physician Type: Progress Notes Filed: 09/20/2021 3:14 PM Note Text: [facility] [place] Department of Cardiovascular Medicine VIRTUAL VIDEO VISIT ESTABLISHED OUTPATIENT VISIT SERVICE DATE: 09/20/2021 Patient: Shravan Davenport SERVICE TIME: 7:25 AM : 1975 This is a virtual video visit. It required patient-provider interaction for the medical decision making as documented below. Shravan Davenport has consented to this video encounter. CHIEF COMPLAINT Autonomic dysfunction HISTORY OF PRESENT ILLNESS Shravan Davenport is a 46 year old female for a follow up visit. She had a history of Raynauds, malaise, fatigue and poor sleep. Her local vascular medicine specialist diagnosed her with an autonomic neuropathy and there was concern for an autoimmune disorder, she also was referred to rheumatology. 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 She had been seen by Dr. Harley and Dr. Casarez her local cardiologists. Though her symptoms suggested POTS her bedside stand did not show an exagerrated HR response and her subsequent tilt was negative. I had ordered Neurocardio Autonomic Reflex Test, QSART and skin biopsy which have not been completed and are scheduled in October, I also referred to neuromuscular for an opinion. She saw a third coal equipment operator about a month ago. He did 21 blood tests and diagnosed her with psoriatic arthritis she started on methotrexate and prednisone. She developed a productive cough and stopped the methotrexate and started a zpak yesterday and her prednisone is tapering. Tilt test 08/04/2021 - Overall: The test is negative for syncope. Overall stable blood pressures and heart rates were seen during upright tilt. OSH stress echo 08/02/20 Summary ??1. The study quality was limited. ?Definity echo-contrast was utilized to enhance endocardial definition. 5 ml Definity given per lab protocol. ??2. No diagnostic ECG changes at maximal workload. ?Metz treadmill score 4 consistent with an intermediate risk study and annual cardiovascular mortality of 1 to 3%. ??3. Reduced exercise capacity for age. ??4. Resting echocardiogram shows normal left ventricular size, wall motion, and systolic function with estimated LVEF 60 to 65%. ??5. Post stress imaging demonstrates normal left ventricular size with no obvious wall motion abnormalities noted and hyperdynamic systolic function, estimated LVEF 70 to 75%. ? OSH 08/19/20 CARDIAC EVENT MONITOR 07/14/20-08/12/20 ? INDICATION: PALPITATIONS Sinus rhythm with episodes of supraventricular tachycardia SVT, Narrow QRS at 162 bpm Full report not available cover sheet indicates baseline sinus tach 122.3 bpm. Nursing Intake: She was recently diagnosed with psoriatic arthritis and is on a prednisone taper and methotrexate. She mentions terrible bloating and fluid retention. Her racing heart rates and dizziness have improved a little but her heat intolerance and shortness of breath have remained bad. She gets soaking wet within minutes of any activity and this seems to be her biggest complaint. She believes she is only taking the metoprolol once a day. She has reduced her activity to avoid symptoms. [facility] PAST MEDICAL HISTORY Diagnosis Date - Anxiety - Autonomic dysfunction - Central hypothyroidism - Conjunctival cyst of left eye - Depression - Hair loss disorder - History of tachycardia - Hyperlipidemia - Pituitary tumor - Polyarthralgia - Punctate keratitis of both eyes - Rathke's cleft cyst (HCC) PAST SURGICAL HISTORY Procedure Laterality Date - HYSTERECTOMY HX - TONSILLECTOMY HX FAMILY HISTORY Problem Relation Age of Onset - Diabetes Father - Cataract Paternal Grandmother - No Ocular Disease No Family History Social History Tobacco Use - Smoking status: Current Every Day Smoker Packs/day: 0.50 Types: Cigarettes Start date: 1990 - Smokeless tobacco: Never Used Vaping Use - Vaping Use: Never used Substance Use Topics - Alcohol use: Yes Alcohol/week: 6.0 standard drinks Types: 6 Cans of Beer (12oz) per week Comment: 1-2 times weekly - Drug use: No ALLERGIES No Known Allergies CURRENT MEDICATIONS sulindac (CLINORIL) 200 mg tablet Take 200 mg by mouth twice daily as needed. ondansetron (ZOFRAN) 4 mg tablet Take by mouth. TAKE 1 TABLET BY MOUTH EVERY 8 HOURS NEEDED FOR NAUSEA metoprolol succinate ER (TOPROL XL) 100 mg Take 100 mg by mouth twice daily. cholecalciferol, Vitamin D3, (VITAMIN D3) 1,250 mcg (50,000 unit) cap capsule Take 1 capsule by mouth one time a week. cycloSPORINE (RESTASIS) 0.05 % ophthalmic emulsion Use 1 Drop in both eyes every 12 hours. levothyroxine (SYNTHROID) 25 mcg tablet Take 25 mcg by jeff (more content not included)... [facility] 09-20-2021 History of Present illness Narrative [facility] [place] Department of Cardiovascular Medicine VIRTUAL VIDEO VISIT ESTABLISHED OUTPATIENT VISIT SERVICE DATE: 09/20/2021 Patient: Shravan Davenport SERVICE TIME: 7:25 AM : 1975 This is a virtual video visit. It required patient-provider interaction for the medical decision making as documented below. Shravan Davenport has consented to this video encounter. CHIEF COMPLAINT Autonomic dysfunction HISTORY OF PRESENT ILLNESS Shravan Davenport is a 46 year old female for a follow up visit. She had a history of Raynauds, malaise, fatigue and poor sleep. Her local vascular medicine specialist diagnosed her with an autonomic neuropathy and there was concern for an autoimmune disorder, she also was referred to rheumatology. 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 She had been seen by Dr. Harley and Dr. Casarez her local cardiologists. Though her symptoms suggested POTS her bedside stand did not show an exagerrated HR response and her subsequent tilt was negative. I had ordered Neurocardio Autonomic Reflex Test, QSART and skin biopsy which have not been completed and are scheduled in October, I also referred to neuromuscular for an opinion. She saw a third coal equipment operator about a month ago. He did 21 blood tests and diagnosed her with psoriatic arthritis she started on methotrexate and prednisone. She developed a productive cough and stopped the methotrexate and started a zpak yesterday and her prednisone is tapering. Tilt test 08/04/2021 - Overall: The test is negative for syncope. Overall stable blood pressures and heart rates were seen during upright tilt. OS stress echo 08/02/20 Summary 1. The study quality was limited. Definity echo-contrast was utilized to enhance endocardial definition. 5 ml Definity given per lab protocol. 2. No diagnostic ECG changes at maximal workload. Metz treadmill score 4 consistent with an intermediate risk study and annual cardiovascular mortality of 1 to 3%. 3. Reduced exercise capacity for age. 4. Resting echocardiogram shows normal left ventricular size, wall motion, and systolic function with estimated LVEF 60 to 65%. 5. Post stress imaging demonstrates normal left ventricular size with no obvious wall motion abnormalities noted and hyperdynamic systolic function, estimated LVEF 70 to 75%. OSH 08/19/20 CARDIAC EVENT MONITOR 07/14/20-08/12/20 INDICATION: PALPITATIONS Sinus rhythm with episodes of supraventricular tachycardia SVT, Narrow QRS at 162 bpm Full report not available cover sheet indicates baseline sinus tach 122.3 bpm. Nursing Intake: She was recently diagnosed with psoriatic arthritis and is on a prednisone taper and methotrexate. She mentions terrible bloating and fluid retention. Her racing heart rates and dizziness have improved a little but her heat intolerance and shortness of breath have remained bad. She gets soaking wet within minutes of any activity and this seems to be her biggest complaint. She believes she is only taking the metoprolol once a day. She has reduced her activity to avoid symptoms. She will be seeing [facility] 09/25/2021. PAST MEDICAL HISTORY Diagnosis Date Anxiety Autonomic dysfunction Central hypothyroidism Conjunctival cyst of left eye Depression Hair loss disorder History of tachycardia Hyperlipidemia Pituitary tumor Polyarthralgia Punctate keratitis of both eyes Rathke's cleft cyst (HCC) PAST SURGICAL HISTORY Procedure Laterality Date HYSTERECTOMY HX TONSILLECTOMY HX FAMILY HISTORY Problem Relation Age of Onset Diabetes Father Cataract Paternal Grandmother No Ocular Disease No Family History Social History Tobacco Use Smoking status: Current Every Day Smoker Packs/day: 0.50 Types: Cigarettes Start date: 1990 Smokeless tobacco: Never Used Vaping Use Vaping Use: Never used Substance Use Topics Alcohol use: Yes Alcohol/week: 6.0 standard drinks Types: 6 Cans of Beer (12oz) per week Comment: 1-2 times weekly Drug use: No ALLERGIES No Known Allergies CURRENT MEDICATIONS sulindac (CLINORIL) 200 mg tablet Take 200 mg by mouth twice daily as needed. ondansetron (ZOFRAN) 4 mg tablet Take by mouth. TAKE 1 TABLET BY MOUTH EVERY 8 HOURS NEEDED FOR NAUSEA metoprolol succinate ER (TOPROL XL) 100 mg Take 100 mg by mouth twice daily. cholecalciferol, Vitamin D3, (VITAMIN D3) 1,250 mcg (50,000 unit) cap capsule Take 1 capsule by mouth one time a week. cycloSPORINE (RESTASIS) 0.05 % ophthalmic emulsion Use 1 Drop in both eyes every 12 hours. levothyroxine (SYNTHROID) 25 mcg tablet Take 25 mcg by mouth once daily. venlafaxine XR (EFFEXOR XR) 225 mg tr24 Take 1 tablet by mouth once daily. estradiol (ESTRACE) 2 mg tablet Take 2 mg by mouth once daily. Omeprazole 40 mg capsule Take 40 mg by mouth once daily. ASSESSMENT: 1. Dizziness - ICD9: 780.4, ICD10: R42 (primary diagnosis) 2. Palpitations - ICD9: 785.1, ICD10: R00.2 3. Acrocyanosis (HCC) - ICD9: 443.89, ICD10: I73.89 4. Livedo reticularis - ICD9: 782.61, ICD10: R23.1 5. Exercise intolerance - ICD9: 780.99, ICD10: R68.89 6. SOB (shortness of breath) - ICD9: 786.05, ICD10: R06.02 7. Fatigue, unspecified type - ICD9: 780.79, ICD10: R53.83 8. Blurred vision - ICD9: 368.8, ICD10: H53.8 PLAN (Active Outpatient Problems): We reviewed the recent work up with her local coal equipment operator, Dr. Doherty and the diagnosis of psoriatic arthritis and she is going to follow up with him. We reviewed her tilt results which showed no evidence of POTS Or [place]. She is scheduled for Neurocardio Autonomic Reflex Test, QSART and skin biopsy in October and has an appointment next week with neuromuscular. One of her most prominent concerns is profuse sweating. I discussed that my belief is that she does not have an autonomic neuropathy affecting her heart but will see what neuromuscular's thoughts are from a neurologic perspective As well as the remainder of her testing. I personally spent 24 minutes minutes in total time involved in the management and care of this patient. Abigail Perez DO September 19, 2021 7:25 AM As a national referral center for Syncope and related conditions, seeing patients from across the country, we cannot provide work, FMLA, disability or other forms, or cardiac clearance. Please contact the patient's primary care physician or clinical bakery and deli sales manager for the documentation requested. We will provide the office notes from the patient's most recent visit if they have not already been received, and other tests or evaluations performed here can be made available upon request. documented in this encounter [facility] 09-19-2021 Miscellaneous Notes Alee, I have virtual visit with Shravan Davenport tomorrow. On her schedule it has her seeing Martir Shona in October, I referred her to neuromuscular which is not scheduled. The appt indicates pt self referred but looks like was put in by Rolanda, my question is was this a mistake, she was supposed to see neuromuscular but got scheduled with shona? Arcadio documented in this encounter [facility] 08-08-2021 History of Present illness Narrative err documented in this encounter [facility] 08-04-2021 Note HNO ID: [id number] Author: Evelyne Muñoz RN Service: ? Author Type: ? Type: Progress Notes Filed: 08/04/2021 9:58 AM Note Text: UNIVERSAL PROTOCOL / SAFETY CHECKLIST Procedure to be performed: [facility]: TILT Sign in Communication: Completed Time Out: Team Confirms the Correct Patient, Correct Procedure, Correct Site and Site Marking, Correct Position (if applicable). Time: 08:38 STAFF: Dr Mayfield Affirmation of Time Out: YES Sign Out Discussion: Completed Nicole Guzman Orders placed 07/21/21 by Allergies: Patient has no known allergies. Test done in consult with Dr. Perez. Procedure Start Time: 08:38 Height 167.6 cm Weight 88.5 kg Patient fasting for 4 hours: Yes Support stockings taken off for procedure: No Pain Assessment: Location: headache Pain Scale: 4 on a scale from 0-10 Pain Character: dull and throbbing Duration: (How long have you had the pain?) 2 years Frequency: (How often does the pain occur?) occurs constantly Comfort Measures: Lights dimmed Pacemaker: No IV Placement: 24 gauge angiocath in right wrist by LCN Baseline: BP 116/72 HR 65 Pre-Max Tilt : 70 degrees 44 min BP 117/85 HR 72 Max Tilt: 70 degrees 45 min BP 113/78 HR 74 IV discontinued at 09:42 by LCN. Staff involved in procedure: Evelyne Muñoz RN, Nicole Guzman RN Procedure Finish Time: 09:49 [facility] 07-21-2021 Note HNO ID: [id number] Author: Abigail Perez DO Service: ? Author Type: Physician Type: Progress Notes Filed: 07/21/2021 12:52 PM Note Text: [facility] [place] [facility] Department of Cardiovascular Medicine SECTION OF CARDIAC PACING and ELECTROPHYSIOLOGY OUTPATIENT VISIT DATE July 20, 2021 OUTPATIENT VISIT TYPE NEW PRIMARY CARE PHYSICIAN: Bryce Armendariz DO [address] [place] [address] REFERRING PHYSICIAN: Britney Zamudio [address] [facility] [id number] CHIEF COMPLAINT: Autonomic dysfunction HISTORY OF PRESENT ILLNESS: Ms. Davenport is a 46 year old female who presents today for an evaluation of autonomic dysfunction? The chart indicates a history of raynauds, malaise, fatigue and poor sleep. The patient was diagnosed with an autonomic neuropathy locally by her vascular medicine specialist, Dr. Monroe. There was concern for an autoimmune disorder as well and she was referred to rheumatology. Her records indicate a history of a pituitary tumor (Ratheke's cyst) and she was evaluated locally by neurology and ophthalmology and neurosurgery at [facility] and did not require surgery at that time. She had previously been physically active and body building but due to her symptoms had become largely home bound and gained 40 pounds. She was previously advised to stop smoking which seems quite appropriate. She is on metoprolol which her records indicate was started for tachycardia. She had been assessed locally by her bakery and deli sales manager, Dr Casarez. The notes indicate symptoms of sharp chest discomfort that lasts only 1-2 seconds, palpitations which sometimes wake her from sleep, dyspnea on exertion and significant fatigue. She had been assessed by another local bakery and deli sales manager, Dr. Harley in 2016 for symptoms of fatigue and had exertional shortness of breath and similar sharp chest pain at that time as well. The initial symptoms started around the time she saw Dr. Harley. She started having dependent acrocyanosis and reticular lividero about a year and a half ago. She started having blurred vision started about 3 years ago. She started noticing worsening shortness of breath started getting worse about two years ago. She also noted drenching sweats. 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 OS stress echo 08/02/20 Summary ??1. The study quality was limited. ?Definity echo-contrast was utilized to enhance endocardial definition. 5 ml Definity given per lab protocol. ??2. No diagnostic ECG changes at maximal workload. ?Metz treadmill score 4 consistent with an intermediate risk study and annual cardiovascular mortality of 1 to 3%. ??3. Reduced exercise capacity for age. ??4. Resting echocardiogram shows normal left ventricular size, wall motion, and systolic function with estimated LVEF 60 to 65%. ??5. Post stress imaging demonstrates normal left ventricular size with no obvious wall motion abnormalities noted and hyperdynamic systolic function, estimated LVEF 70 to 75%. OS 08/19/20 CARDIAC EVENT MONITOR 07/14/20-08/12/20 ? INDICATION: PALPITATIONS Sinus rhythm with episodes of supraventricular tachycardia SVT, Narrow QRS at 162 bpm Full report not available cover sheet indicates baseline sinus tach 122.3 bpm. Nursing Intake: Over the past three years her health has declined starting with her vision (light sensitivity and intermittent blurriness). She has episodes of near syncope and has learned not to push herself. She has shortness of breath, diaphoresis, and lightheadedness with most activity. She has occasional palpitations. Her feet swell occasionally and also become discolored (she has been seen by vascular). She denies chest pain, orthopnea, PND, cough, or syncope. She also notes that she cannot empty her bladder and feels the urge to void frequently. She also has to go to sleep after eating because she gets so tired. She drinks one large cup of water a day. She drinks sports drinks. She has pop occasionally. She does not wear any compression garments. 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 PAST CARDIAC HISTORY: None PAST MEDICAL HISTORY Diagnosis Date - Anxiety - Central hypothyroidism - Conjunctival cyst of left eye - Depression - Hair loss disorder - History of tachycardia - Hyperlipidemia - Pituitary tumor - Polyarthralgia - Punctate keratitis of both eyes - Rathke's cleft cyst (HCC) PAST SURGICAL HISTORY Procedure Laterality Date - HYSTERECTOMY HX - TONSILLECTOMY HX SOCIAL HISTORY Social History Tobacco Use - Smoking status: Current Some Day Smoker Types: Cigarettes - Smokeless tobacco: Never Used Vaping Use - Vaping Use: Never used Substance Use Topics - Alcohol use: Yes Alcohol/week: 6.0 standard drinks Types: 6 Cans o (more content not included)... [facility] 05-15-2021 History of Present illness Narrative Images from the original note were not included. [facility] [address] [facility] [place], [facility] [address] [place] [address] Nerve Conduction & EMG Report Patient: Shravan Davenport Sex: Female Date of : 1975 Visit Date: 05/15/2021 11:35 AM Age: 45 Years Examining MD: Marcus Curtis MD Referred by: Dr. Liao Temperature: 32.3 Current Height: 5 feet 6 inch Referred for: Jovani feet turns purple aand pain. + LBP. No DM. Plan: The study was design to evaluate for entrapment neuropathy, polyneuropathy, radiculopathy, or plexopathy. Procedure indication, risk, complications, side effects and alternatives were explained. Patient agreed to proceed with verbal consent. Patient was instructed to clean the puncture site with soap and water and put some ice pack for bruising. EMG Summary: The bilateral peroneal and tibial motor nerve conduction studies were normal. The bilateral sural and superficial peroneal sensory nerve conduction studies were also normal. The bilateral H reflex was normal. Bilateral medial and lateral plantar sensory nerve conduction studies were normal. Needle EMG of the muscle tested showed no abnormal spontaneous activity. Normal motor unit action potentials and recruitment patterns were seen. Impression: There is NO clear electrodiagnostic evidence of a bilateral lumbosacral radiculopathy, plexopathy, or diffuse sensorimotor polyneuropathy at this time. Marcus Curtis MD Diplomate, ABPN, NBPAS Clinical Neurophysiology, Neurology, Vascular Neurology and Sleep Medicine [place], [place] [phone] Motor NCS Nerve / Sites Muscle Latency Amplitude Distance Velocity ms mV cm m/s R Deep peroneal (Fibular) - EDB Ankle EDB 4.31 6.7 8.5 Fib Head EDB 10.94 6.2 30.5 46.0 Knee EDB 11.98 6.7 7 67.2 L Deep peroneal (Fibular) - EDB Ankle EDB 4.31 5.0 8.5 Fib Head EDB 11.25 4.6 31 44.7 Knee EDB 12.52 4.5 7 55.1 R Tibial - AH Ankle AH 3.73 12.4 8 Knee AH 11.00 9.0 39 53.6 L Tibial - AH Ankle AH 3.10 12.1 8 Knee AH 13.06 5.0 41 41.2 Sensory NCS Nerve / Sites Peak Amp Amp.2-3 Distance Velocity d Lat.2 ms V V cm m/s ms R Sural - Lat Mall Calf 3.63 22.7 16.9 14 49 L Sural - Lat Mall Calf 3.67 18.3 18.7 14 48 R Superficial peroneal - Ankle Lat leg 3.73 18.6 6.2 14 51 L Superficial peroneal - Ankle Lat leg 2.50 8.1 0.46 14 78 R Medial plantar, Lateral plantar - Ankle (Medial, lateral sole) Medial plantar Sole 2.96 7.5 16.9 12 51 Lateral plantar Sole 3.65 4.1 7.7 14 51 -0.69 L Medial plantar, Lateral plantar - Ankle (Medial, lateral sole) Medial plantar Sole 3.31 5.1 4.3 12 45 Lateral plantar Sole 3.71 3.2 4.3 14 47 -0.40 H Reflex Nerve H Lat ms R Tibial - Soleus 31.20 L Tibial - Soleus 30.57 EMG Summary Table Spontaneous Activity Amplitude Duration Recruitment Polyphasia Comment Muscle Ins Act Fib PSW Fasc - - - - - L. Vastus lateralis Normal 0 0 0 Normal Normal Normal Normal Normal L. Semitendinosus Normal 0 0 0 Normal Normal Normal Normal Normal L. Tibialis anterior Normal 0 0 0 Normal Normal Normal Normal Normal L. Gastrocnemius (Medial head) Normal 0 0 0 Normal Normal Normal Normal Normal L. Abductor hallucis Normal 0 0 0 Normal Normal Normal Normal Normal L. Lumbar paraspinals Normal 0 0 0 Normal Normal Normal Normal Normal R. Vastus lateralis Normal 0 0 0 Normal Normal Normal Normal Normal R. Semitendinosus Normal 0 0 0 Normal Normal Normal Normal Normal R. Tibialis anterior Normal 0 0 0 Normal Normal Normal Normal Normal R. Gastrocnemius (Medial head) Normal 0 0 0 Normal Normal Normal Normal Normal R. Abductor hallucis Normal 0 0 0 Normal Normal Normal Normal Normal R. Lumbar paraspinals Normal 0 0 0 Normal Normal Normal Normal Normal documented in this encounter [facility] 03-15-2021 History of Present illness Narrative [facility] [address]) [facility] [address] [facility] [id number] Shravan Davenport is a 45 y.o. female being seen today, 03/15/21, Chief Complaint Patient presents with Right Hand - Pain, Follow-up Left Hip - Pain, Follow-up [chief complaint] back pain left hip pain bilateral leg pain HPI Dictation: Seen in follow-up with MRI showing degenerative disc disease L4-5 L5-S1 no evidence of any nerve impingement I did send her for a vascular referral with the opinion of autonomic neuropathy hypothyroidism depression no evidence of any significant peripheral vascular disease x-rays were taken today AP pelvis to evaluate for her left hip hip x-rays are unremarkable [hpi] Physical Exam Dictation: [PE] again she has a plethora of complaints lower back hands hips legs again without any evidence of a surgical issue with regards to her lower back Assessment and Plan Dictation: [AP] I did suggest she needs to go back and see rheumatology neurology also order EMG of both lower extremities to evaluate for neuropathy with recommendations to follow I have reviewed all relevant histories, medications, allergies, and problem list items with Shravan Davenport during this visit. Review of Systems Constitutional: Negative for chills and fever. HENT: Negative for congestion. Respiratory: Negative for shortness of breath. Cardiovascular: Negative for chest pain. Gastrointestinal: Negative for diarrhea, nausea and vomiting. Neurological: Negative for headaches. Psychiatric/Behavioral: Negative for behavioral problems. BP 135/84 Pulse (!) 144 Ht 5' 6 Wt 82.6 kg (182 lb) BMI 29.38 kg/m Imaging: No results found. 1. Lumbar degenerative disc disease Return in about 4 weeks (around 04/12/2021). Mitali Liao MD documented in this encounter [facility] 02-22-2021 History of Present illness Narrative [facility] [address]) [facility] [address] [facility] [id number] Shravan Davepnort is a 45 y.o. female being seen today, 02/22/21, Chief Complaint Patient presents with Right Hand - Pain [chief complaint] right hand lower back lateral leg pain HPI Dictation: Reports a 2-year history of multiple complaints. She was diagnosed with a pituitary tumor that is being followed [facility] she has hypothyroidism she is being seen by rheumatology neurology dermatology she had x-rays of her hand which showed a nonspecific 4 mm rounded radiolucent lesion within the base of the first proximal phalanx most likely an enchondroma she has pain at the base of her thumb she has lower back pain she complains of discoloration and pain in both lower extremities negative with all activities. 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 sort of rheumatological disease she had an MRI of her lumbar spine which also degenerative disc disease at L4-5 L5-S1 no evidence of any nerve impingement [hpi] Physical Exam Dictation: [PE] on exam her right foot prickly seems to be discolored tickly bone the small toe which is bluish there seems to be decreased capillary refill and have a hard time palpating distal pulses in either foot far as her hand is concerned she had a positive grind test at the base of her thumb she has symptoms prominences over the dorsal aspect of the PIP joints consistent with early DJD of the plain x-rays show the inner prandial joints are unremarkable and she does have lower back pain increased low lumbar motion Assessment and Plan Dictation: [AP] lumbar degenerative disc disease pain particular at the first Carpal carpal to collation could consistent with degenerative disease at this level no evidence on MRI of any nerve impingement to affect her legs for that reason I do feel she needs a vascular evaluation it started on meloxicam will see her back in 2 weeks Signs and Symptoms of COVID-19 (e.g., fever, dry cough, and/or SOB), no diagnosis made (assign the appropriate code(s)): [ Fever, unspecified R50.9 ] [ Cough R05 ] [ Shortness of breath R06.02 ] I have reviewed all relevant histories, medications, allergies, and problem list items with Shravan Davenport during this visit. Review of Systems Constitutional: Negative for chills and fever. HENT: Negative for congestion. Respiratory: Negative for shortness of breath. Cardiovascular: Negative for chest pain. Gastrointestinal: Negative for diarrhea, nausea and vomiting. Neurological: Negative for headaches. Psychiatric/Behavioral: Negative for behavioral problems. There were no vitals taken for this visit. Imaging: No results found. 1. Lumbar degenerative disc disease 2. Pain of right hand Return in about 2 weeks (around 03/08/2021). Mitali Liao MD documented in this encounter [facility] 01-03-2021 History of Present illness Narrative Images from the original note were not included. RHEUMATOLOGY EST PATIENT VISIT Patients name: Shravan Davenport : 1975 Today's date: 01/03/2021 Reason for visit: patient concerned for SLE HPC: This is a 45 y.o. female with a pmhx of tobacco abuse, ratkes cyst, tobacco abuse who presents for eval of myalgia in setting of multiple symptoms. Started 3 years ago, in best shape Started with blurry vision Then cognitive issues Hard time in UV light, sun bothered her Eyes were tested, told eyes were dry -> told to be evaluated for Sjogrens. Went to neurologist 3 years ago-> tested her many things. Main issues: cognitive and fatigue Tested for Sjogrens and was told everything was negative. MRI of back showed disc issues, DJD. 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 Prolactin was high at one point. This Dr didn't think this was causing sx -> watching this issue. Her cortisol was high Started loosing hair, feet were inflammed, purple, white, ankles. 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 Patient read about SLE and felt her symptoms matched with SLE. MILVIA was tested and was low/speckled. Thyroid was abnormal-> prescribed treatment Tachycardic -> put on treatment Had a bad spell with blurry vision & confusion Lost 9 lbs in 2 days which she feels water loss. Feet are bad: has pictures which she will try and send. Thinks she had butterfly rash, but was more flushing, no blisters. This has been on and off Low grade fever on and off 99/100 Feet sometimes look purple. Is smoking. Extreme fatigue. +nose lesions No fluid around lungs or heart. Never been told she had protein in urine. No miscarriage. Prior Rheum appts: NIL Interim: Lesion left upper arm biopsied -> [facility] Blanching of feet Livedo reticulars?-> patient will send in path results Is a smoker so could easily be attributed to that Feels she had a flare up -> cognition/blurry vision/myalgia although pain is present isnt an issue for her Cyst in her eye-> plan for removal at an outside hospital Patient is very tearful, worried that there is something wrong with her. Tells me that she manages all the symptoms for having lupus. Her blood tests were unremarkable including an MILVIA/BOSSMAN/complements/dsDNA/urine studies. Prior positive MILVIA was essentially negative as it was an extremely low titer 1: 40. I have reviewed the patient's medical history in detail and updated the computerized patient record. Past Medical History: Diagnosis Date Anxiety Depression GERD (gastroesophageal reflux disease) IBS (irritable bowel syndrome) with constipation Pituitary tumor Past Surgical History: Procedure Laterality Date breast augmentation COLONOSCOPY N/A 03/17/2019 Procedure: COLONOSCOPY; Surgeon: Ricky Scruggs MD; [facility]: [facility]; Service: Gastroenterology EGD N/A 03/17/2019 Procedure: ESOPHAGOGASTRODUODENOSCOPYwith bx; Surgeon: Ricky Scruggs MD; Location: [facility]; Service: Gastroenterology fallopian tube removal Right HYSTERECTOMY 2017 OOPHORECTOMY Right TONSILLECTOMY Bilateral 10/29/2018 Procedure: TONSILLECTOMY; Surgeon: Gonzalez Martinez Jr. DO; Location: [facility] OR; Service: Otolaryngology TONSILLECTOMY 10/29/2018 Outpatient, Dr. Martinez WRIST SURGERY Left hardware Social History Tobacco Use Smoking status: Current Every Day Smoker Packs/day: 0.00 Years: 10.00 Pack years: 0.00 Types: Cigarettes Last attempt to quit: 08/18/2017 Years since quittin.3 Smokeless tobacco: Never Used Vaping Use Vaping Use: Never used Substance Use Topics Alcohol use: Yes Alcohol/week: 0.0 standard drinks Comment: Occasional Drug use: No Family History Problem Relation Age of Onset Heart disease Father Heart attack Father 46 bypass Coronary artery disease Father Stroke Father Diabetes Father Neuropathy Father No Known Allergies Outpatient Medications Marked as Taking for the 01/03/21 encounter (Office Visit) with Nohemi Flores MD Medication Sig Dispense Refill carBAMazepine (TEGretol) 100 mg chewable tablet Chew and Swallow 100 mg 2 (two) times a day . clobetasoL (TEMOVATE) 0.05 % cream Apply topically 2 (two) times a day . doxycycline hyclate (VIBRAMYCIN) 100 MG capsule Take 100 mg by mouth 2 (two) times a day . estradiol (ESTRACE) 2 MG tablet Take 2 mg by mouth . fluticasone propionate (FLONASE) 50 mcg/actuation nasal spray 1 spray by Each Nare route daily . hydrOXYzine (ATARAX) 25 MG tablet Take 25 mg by mouth 3 (three) times a day as needed for itching . levothyroxine (SYNTHROID, LEVOTHROID) 25 MCG tablet Take 25 mcg by mouth daily . metoprolol tartrate (LOPRESSOR) 50 MG tablet Take 50 mg by mouth 2 (two) times a day . omeprazole (PRILOSEC) 40 MG capsule Take 40 mg by mouth . Restasis 0.05 % ophthalmic emulsion Administer 1 drop to both eyes every 12 (twelve) hours . traZODone (DESYREL) 50 MG tablet Take 50 mg by mouth daily . venlafaxine (EFFEXOR-XR) 150 MG 24 hr capsule Take 150 mg by mouth daily . Review of Systems: General Constitutional: as per HPI Eyes: as per HPI ENT: denied nasal drainage, sinus pressure, +nasal ulcers Mouth: as per HPI Lymphatics: as per HPI Respiratory: as per HPI CV: +palpitations, no chest pain/pressure, PND, orthopnea. GI: denied abd pain, n/v/d, constipation, melena. : denied dysuria, urgency, frequency or hematuria, no miscarraiges Skin: as per HPI Musculoskeletal: as per HPI Hematologic/lmmunologic: no adenopathy, bleeding, easy bruisiality or recurrent infection. Neurology: Denied new headaches, speech/balance/coordination problems. Denied new focal numbness or weakness of extremities, no admissions for seizures or psychosis. Psych: as per HPI A 10 point review of systems was completed. Physical Exam: BP 119/78 Pulse (!) 112 Wt 83 kg (183 lb) BMI 29.54 kg/m Gen: NAD, resting comfortably,Alert, cooperative, no distress, appears stated age HEENT: NCAT, no temporal wasting, EOMI, perrl, anicteric sclerae, mmm, no op lesions Neck: supple, no thyromegaly or LAD, no bruits Lymphatics: no cervical, axillary, or inguinal adenopathy Chest: Good a/e b/l, no added sounds, no respiratory distress CV: RRR, no m/r/g, normal S1, S2 Abd: soft, nontender, nondistended, +BS, no hepatosplenomegaly Ext: no clubbing, cyanosis or edema MSK: No synovitis of the MCPs or PIPs. Crepitus of the knees no effusion or warmth. Skin: no rashes or lesions Neuro: no focal deficits, moves all four extremities Psych: Mood and affect appropriate DATA: I have reviewed lab work and imaging. Labs:reviewed. Imaging: reviewed. Health Maintenance Due Topic Date Due Tetanus: Every 10yrs Never done Pap Smear Never done Wellness Visit Never done Pneumococcal Vaccine: Ped or At-Risk (1 of 2 - PPSV23) Never done Depression Screening (PHQ9) Never done COVID-19 Vaccine (1) Never done HIV Screening Never done Hepatitis C Screening Never done Mammogram Never done 3 stitches removed from the left upper arm. Assessment & Plan Myalgia, fatigue, cognition issues, blurry vision multiple symptoms - patient has concern for SLE however I have counseled her that there is no clinical evidence nor is there any laboratory evidence to support her fears. -Negative MILVIA and negative BOSSMAN Screen (SSA/B,SM,TIPPLE OPERATOR,SCL70,JO1) -Complements within normal limits, negative dsDNA, urine studies were within normal limits. -I suspect there is an element of fibromyalgia, this patient seems to be under extreme stress/anxiety. -I have advised her to find ways to relax, not to consult [employer] for medical issues as it seems to be adding to her stress. -Recommend meditation, mindfulness and that she seek out counselor/psychiatrist to discuss her worries about medical concerns with. -In the meantime I can see her back in 4-6 months if any new issues arise or if she wishes to rediscuss any concerns. -Her blanching in her feet and concerns of livedo reticularis/Raynaud's of the feet is pretty common when there is history of smoking so have also suggested her to try work on cessation of smoking, however that in itself is not indicative of lupus. -I did recommend to the patient to undergo sleep study test however she did decline this. If she changes her mind all she has to do is call and we will put in the referral. Low serum vitamin D - previously low serum vitamin D - patient is self supplementing, we will recheck her vitamin D level. The patient indicates understanding of these issues and agrees with the plan. Return to clinic in 4-6 month(s) Telehealth appointments ok. Nohemi Flores MD Mail Handler Assistant Environmental Health Aide Note: To expedite correspondence this note was generated by Cherry voice recognition software. Some grammatical or spelling errors may occur using the system. documented in this encounter [facility] Diagnosis Myalgia- Primary Unspecified myalgia and myositis [facility]* Diagnosis Lumbar degenerative disc disease- Primary Pain of right hand [facility]* Diagnosis Vascular disease- Primary Unspecified circulatory system disorder documented in this encounter [facility] note* Diagnosis Pain- Primary Generalized pain documented in this encounter [facility] note* Diagnosis Lumbar degenerative disc disease- Primary documented in this encounter [facility] note* Diagnosis Vascular disease- Primary Unspecified circulatory system disorder documented in this encounter [facility] note* Diagnosis Vascular disease Unspecified circulatory system disorder documented in this encounter [facility] note* Diagnosis Autonomic dysfunction- Primary Unspecified disorder of autonomic nervous system Dizziness- Primary Dizziness and giddiness Palpitations Acrocyanosis (HCC) Other peripheral vascular disease Livedo reticularis Pallor Exercise intolerance Other general symptoms SOB (shortness of breath) Shortness of breath Fatigue, unspecified type Blurred vision Other specified visual disturbances documented in this encounter [facility] note* Diagnosis ERRONEOUS ENCOUNTER--DISREGARD- Primary [facility] Diagnosis Dizziness- Primary Dizziness and giddiness Palpitations Acrocyanosis (HCC) Other peripheral vascular disease Livedo reticularis Pallor Exercise intolerance Other general symptoms SOB (shortness of breath) Shortness of breath Fatigue, unspecified type Blurred vision Other specified visual disturbances documented in this encounter [facility] note* Diagnosis Sweating abnormality- Primary Other specified disorder of sweat glands Atelectasis Pulmonary collapse Dyspnea on exertion Other dyspnea and respiratory abnormality Orthostatic intolerance documented in this encounter [facility] note* Diagnosis Shortness of breath- Primary Secondary pulmonary arterial hypertension Interstitial lung disease Postinflammatory pulmonary fibrosis Screening for viral disease Special screening examination for unspecified viral disease documented in this encounter [facility] note* Diagnosis Orthostatic intolerance- Primary Sweating abnormality Other specified disorder of sweat glands documented in this encounter [facility] note* Diagnosis Dizziness- Primary Dizziness and giddiness Small fiber neuropathy Unspecified hereditary and idiopathic peripheral neuropathy documented in this encounter [facility] note* Diagnosis Psoriatic arthritis- Primary Psoriatic arthropathy Synovial cyst of hand 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 Other disorders of synovium, tendon, and bursa Lichen planus Rash Rash and other nonspecific skin eruption Normochromic normocytic anemia Anemia, unspecified Abnormal x-ray Other nonspecific (abnormal) findings on radiological and other examinations of body structure CRP elevated Elevated C-reactive protein (CRP) Dry eyes Tear film insufficiency, unspecified Family history of discoid lupus Family history of skin conditions History of Raynaud's syndrome Personal history of other diseases of circulatory system Ketonuria 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-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 (NSAID) Encounter for long-term (current) use of non-steroidal anti-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 alf current use of systemic steroids Encounter for long-term (current) use of steroids Multiple chemical sensitivity syndrome, sequela Interstitial lung disease Postinflammatory pulmonary fibrosis Raynaud's disease without gangrene Dry mouth Disturbance of salivary secretion Vitamin D deficiency Unspecified vitamin D deficiency Xerostomia Disturbance of salivary secretion Keratoconjunctivitis sicca Sicca syndrome Bilateral calcaneal spurs Degenerative cervical disc Degeneration of cervical intervertebral disc Enchondroma of bone of hand, right Lumbar degenerative disc disease Degeneration of lumbar or lumbosacral intervertebral disc Osteoarthritis of facet joint of cervical spine Osteochondral defect Acquired musculoskeletal deformity of other specified site Primary osteoarthritis of both feet Primary osteoarthritis of both knees Primary localized osteoarthrosis, lower leg Primary osteoarthritis of right shoulder Primary localized osteoarthrosis, shoulder region [facility] Interstitial lung disease Postinflammatory pulmonary fibrosis [facility] Diagnosis Shortness of breath [facility] Diagnosis Asthmatic bronchitis without complication, unspecified asthma severity, unspecified whether persistent- Primary [facility] Diagnosis Bloating- Primary Flatulence, eructation, and gas pain Heartburn Gaseous regurgitation Flatulence, eructation, and gas pain Nausea Nausea alone Heartburn Gaseous regurgitation Flatulence, eructation, and gas pain Nausea Nausea alone Bloating Flatulence, eructation, and gas pain Heartburn Gaseous regurgitation Flatulence, eructation, and gas pain Nausea Nausea alone Bloating Flatulence, eructation, and gas pain [facility] Diagnosis Reactive airway disease without complication, unspecified asthma severity, unspecified whether persistent- Primary Pulmonary scarring Postinflammatory pulmonary fibrosis Secondary pulmonary arterial hypertension Shortness of breath Cigarette nicotine dependence with nicotine-induced disorder Unspecified drug-induced mental disorder 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 exacerbation Obstructive chronic bronchitis with exacerbation SVT (supraventricular tachycardia) Other specified cardiac dysrhythmias Reina infection Candidiasis of unspecified site [facility] Diagnosis Psoriatic arthritis- Primary Psoriatic arthropathy 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 Other disorders of synovium, tendon, and bursa Abnormal x-ray Other nonspecific (abnormal) findings on radiological and other examinations of body structure Dry eyes Tear film insufficiency, unspecified Family history of discoid lupus Family history of skin conditions History of Raynaud's syndrome Personal history of other diseases of circulatory system Multiple chemical sensitivity syndrome, sequela Raynaud's disease without gangrene Dry mouth Disturbance of salivary secretion Xerostomia Disturbance of salivary secretion Rathke's cleft cyst Other disorders of the pituitary and other syndromes of diencephalohypophyseal origin Keratoconjunctivitis sicca Sicca syndrome Bilateral calcaneal spurs Degenerative cervical disc Degeneration of cervical intervertebral disc Enchondroma of bone of hand, right Lumbar degenerative disc disease Degeneration of lumbar or lumbosacral intervertebral disc Osteoarthritis of facet joint of cervical spine Osteochondral defect Acquired musculoskeletal deformity of other specified site Primary osteoarthritis of both feet Primary osteoarthritis of both knees Primary localized osteoarthrosis, lower leg Primary osteoarthritis of right shoulder Primary localized osteoarthrosis, shoulder region Synovial cyst of hand Lichen planus Rash Rash and other nonspecific skin eruption Normochromic normocytic anemia Anemia, unspecified CRP elevated Elevated C-reactive protein (CRP) Ketonuria 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-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 (NSAID) Encounter for long-term (current) use of non-steroidal anti-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 alf current use of systemic steroids Encounter for long-term (current) use of steroids Interstitial lung disease Postinflammatory pulmonary fibrosis Vitamin D deficiency Unspecified vitamin D deficiency [facility] Diagnosis Bloating- Primary Flatulence, eructation, and gas pain Gaseous regurgitation Flatulence, eructation, and gas pain Constipation, unspecified constipation type documented in this encounter [facility] note* Diagnosis Lesion of bone of right hand- Primary [facility] Diagnosis Other iron deficiency anemia- Primary Anemia, unspecified type [facility]* Diagnosis Palpitations Dizziness and giddiness Orthostatic hypotension Secondary pulmonary arterial hypertension Dyspnea on exertion Other dyspnea and respiratory abnormality [facility] Diagnosis Rathke's cleft cyst Other disorders of the pituitary and other syndromes of diencephalohypophyseal origin Central hypothyroidism Unspecified hypothyroidism Hyperprolactinemia Other and unspecified anterior pituitary hyperfunction Fatigue, unspecified type [facility] Diagnosis Hesitancy of micturition- Primary Urinary hesitancy Chronic idiopathic constipation Unspecified constipation Hematuria, gross Gross hematuria Urinary urgency Urgency of urination [facility] Diagnosis Change in bowel habit- Primary Generalized abdominal pain Abdominal pain, generalized Bloating Flatulence, eructation, and gas pain Colitis Other and unspecified noninfectious gastroenteritis and colitis Bloating Flatulence, eructation, and gas pain [facility] Diagnosis Leakage of breast prosthesis and implant, initial encounter S/P breast implant, silicone Breast replaced by other means documented [facility] Diagnosis Bilateral hip pain- Primary Pain in joint, pelvic region and thigh documented in this encounter [facility] for referral (narrative)* Consultation (Urgent) - New Request Specialty Diagnoses / Procedures Referred By Marti dangelo Referred To Contact Cardiovascular Medicine Diagnoses SVT (supraventricular tachycardia) Sabino Toure MD [address] [place] [address] Mitali Ibarra MD [address] [place] [address] Referral ID Status Reason Start Date Expiration Date V isi Requested Visits Authorized [id number] New Request 01/24/2022 02/18/2023 1 1 Scheduling Instructions . 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 Abnormal x-ray Dry eyes Family history of discoid lupus History of Raynaud's syndrome Multiple chemical sensitivity syndrome, sequela Raynaud's disease without gangrene Dry mouth Xerostomia Rathke's cleft cyst Keratoconjunctivitis sicca Bilateral calcaneal spurs Degenerative cervical disc Enchondroma of bone of hand, right Lumbar degenerative disc disease Osteoarthritis of facet joint of cervical spine Osteochondral defect Primary osteoarthritis of both feet Primary osteoarthritis of both knees Primary osteoarthritis of right shoulder Synovial cyst of hand Lichen planus Rash Normochromic normocytic anemia CRP elevated 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 (NSAID) alf current use of systemic steroids Interstitial lung disease Vitamin D deficiency Karlo Doherty Jr., DO [address] [place] [address] Guadalupe Loera MD [address] [place], [place] [id number] Referral ID Status Reason Start Date Expiration Date V isits Requested Visits Authorized [id number] New Request 01/31/2022 02/25/2023 1 1 * Consultation (Routine) - New Request Specialty Diagnoses / Procedures Referred By Marti dangelo Referred To Contact Orthopaedics Diagnoses Psoriatic arthritis 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 Abnormal x-ray Dry eyes Family history of discoid lupus History of Raynaud's syndrome Multiple chemical sensitivity syndrome, sequela Raynaud's disease without gangrene Dry mouth Xerostomia Rathke's cleft cyst Keratoconjunctivitis sicca Bilateral calcaneal spurs Degenerative cervical disc Enchondroma of bone of hand, right Lumbar degenerative disc disease Osteoarthritis of facet joint of cervical spine Osteochondral defect Primary osteoarthritis of both feet Primary osteoarthritis of both knees Primary osteoarthritis of right shoulder Synovial cyst of hand Lichen planus Rash Normochromic normocytic anemia CRP elevated 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 (NSAID) 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 Interstitial lung disease Vitamin D deficiency Karlo Doherty Jr., DO [address] [place] [address] Shauna Calderon MD [address] [place] [address] Referral ID Status Reason Start Date Expiration Date V isits Requested Visits Authorized [id number] New Request 01/31/2022 02/25/2023 1 1 [facility] Summary Purpose Family History No Family History Records FoundNo Family History Records FoundNo Family History Records FoundNo Family History Records FoundNo Family History Records FoundNo Family History Records FoundNo Family History Records FoundNo Family History Records FoundNo Family History Records FoundNo Family History Records Found Advance Directives No Advanced Directives Records FoundDocuments on File Type Date Recorded 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 Advance Directives and Livin g Will 11/06/2018 7:39 AM Documents on File Type Date Recorded 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 Advance Directives and Livin g Will 01/29/2019 1:20 PM Documents on File Type Date Recorded 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 Advance Directives and Livin g Will 03/17/2019 10:24 AM Documents on File Type Date Recorded 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 Advance Directives and Livin g Will 07/05/2020 10:24 AM Documents on File Type Date Recorded 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 Advance Directives and Livin g Will 02/11/2019 1:12 PM Documents on File Type Date Recorded 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 Advance Directives and Livin g Will 07/05/2020 10:24 AM Documents on File Type Date Recorded 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 Advance Directives and Livin g Will 08/02/2020 10:24 AM Documents on File Type Date Recorded 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 Advance Directives and Livin g Will 01/22/2019 12:58 PM Documents on File Type Date Recorded 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 Advance Directives and Livin g Will 08/02/2020 10:24 AM Documents on File Type Date Recorded 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 Advance Directives and Livin g Will 03/17/2019 10:24 AM Documents on File Type Date Recorded 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 Advance Directives and Livin g Will 01/31/2021 10:24 AM Documents on File Type Date Recorded 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 Advance Directives and Livin g Will 01/31/2021 10:24 AM Documents on File Type Date Recorded 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 Advance Directives and Livin g Will 03/15/2021 11:48 AM Documents on File Type Date Recorded 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 Advance Directives and Livin g Will 03/15/2021 11:48 AM Documents on File Type Date Recorded 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 The risks, benefits, and alternatives to this procedure have been discussed including but not limited to velopharyngeal reflux, change in sense of taste, bleeding, infection, scar formation, dehydration, etc. They voiced understanding and wishes to proceed with scheduling. I will have them sign the appropriate consent forms and see them back 3 weeks post op. in this encounter* Patient Instructions* Gonzalez Martinez Jr., DO - 10/09/2018 11:31 AM EDT Assessment/Plan: Diagnoses and all orders for this visit: Chronic tonsillitis I have discussed continued medical management vs tonsillectomy possible adenoidectomy with the patient. The risks, benefits, and alternatives to this procedure have been discussed including but not limited to velopharyngeal reflux, change in sense of taste, bleeding, infection, scar formation, dehyd ration, etc. They voiced understanding and wishes to proceed with scheduling. I will have them signthe appropriate consent forms and see them back 3 weeks post op. documented in this encounter* Patient Instructions* Judith Boss CNP - 10/16/2018 3:30 PM EDT Preoperative Medication Instructions In preparation for surgery please continue all of your current medications with the following changes: Shravan Davenport Home Medication Instructions Prior to Surgery FRANCISCO:[id number] Printed on:10/16/18 5559 Medication Information Take last dose on Take the morning of surgery Comment(s) bromocriptine (PARLODEL) 2.5 mg tablet 10/28 buPROPion (WELLBUTRIN XL) 300 MG 24 hr tablet Take 300 mg by mouth daily 10/28 estradiol (ESTRACE) 2 MG tablet Take 2 mg by mouth . 10/28 omeprazole (PRILOSEC) 40 MG capsule Take 40 mg by mouth . Take morning of surgery with a sip of water STOP ( medications that contain aspirin, such as Karla Stonefort, Pepto-Bismol, Anacin), antiinflammatory medications such as Advil, Motrin, Ibuprofen, Naproxen, Aleve, Karla Stonefort, Pepto-Bismol, Anacin, Diclofenac, Voltaren, Daypro, Etodolac, Ketoprofen, Piroxicam, Relafen, Nabumetone, etc. Also disc ontinue Vitamin C, Vitamin E, [place]-3 Fatty Acid, Fish Oil or Lovaza, and all herbal medications ASDIRECTED BY SURGEON. Tylenol (acetaminophen) is acceptable(unless you have an allergy to this medication ), but be careful to follow the label directions and do not use with other pain medications. On the morning of surgery, with as little water as possible, ONLY take the medications listed abovein the column Take the morning of surgery. If you are using Eye Drops or Inhalers, please bring them to the hospital. Patient Instructions for [facility]: Prior to surgery: Surgeon's office will contact you with the scheduled time of your surgery. You may use the [email or web address] parking available at the Main Entrance One family member may accompany you back into the Pre-Op Area. Do not eat or drink anything after midnight or as directed, including gum, mints, and cough drops. No smoking after midnight. No alcohol 24 hours prior to your surgery. Please take any medications you have been instructed to take the morning of your surgery with smallsips of water. Please be sure to wear comfortable, appropriate clothing. Please remove all jewelry and piercing's, including wedding rings. Leave all valuable items at home. Shower using anti-bacterial soap or as advised by your Surgeon's office Do not apply any makeup or lotions. Remove all nail marshallese for surgeries involving extremities. Please remember to bring both your insurance card and a photo ID with you on the day of surgery. After your surgery: If you are having outpatient surgery - you must have a licensed water taxi driver to take you home. The expectation is that this water taxi driver will remain at the hospital for the duration of your procedure. You are advised to have a family member with you for at least 24 hours after being under Anesthesia. If you have sleep apnea and have a CPAP/BIPAP device, please bring it with you the day of surgery. documented in this encounter* Patient Instructions* Gonzalez Martinez Jr., DO - 11/07/2018 9:07 AM EDT Assessment/Plan: Diagnoses and all orders for this visit: Chronic tonsillitis Appropriate post op tonsillectomy check. Patient's appearance and vital signs are within normal limits for post operative tonsillectomy. I have provided the patient with 15 norco 5/325 rx and will see her back at her scheduled appointment. documented in this encounter* Patient Instructions* Gonzalez Martinez Jr., DO - 11/20/2018 3:05 PM EDT Assessment/Plan: Diagnoses and all orders for this visit: Chronic tonsillitis The patient presents 3 weeks post-op for tonsillectomy. They are doing well and are without complaints. The patient denies velopharyngeal reflux. No issues with swallow, tolerating PO, tolerating secretions, and no airway issues. I will see them back as needed. Pathology report reviewed with patient. Final Diagnosis A. Tonsil, Right, tonsillectomy: Reactive lymphoid hyperplasia. B. Tonsil, Left, tonsillectomy: Reactive lymphoid hyperplasia. documented in this encounter* Patient Instructions* Ashley Corral MA - 07/04/2020 2:12 PM EST How to contact your Care Team: Provider: Yevgeniy Casarez MD [facility] Nurse: Carri Conway RN REFILLS: When in need for refills please call your care team or the office at [phone]. Please include medication name, pharmacy name, and specify 30-day or 90-day supply. Please check with your pharmacy within 24 hours of request for your refill. You must follow up as directed to continue current refills. Thank you! STRESS-ECHOCARDIOGRAM You are scheduled to have a treadmill or Dobutamine stress-echocardiogram on at . This is a monitored test on a treadmill at various work levels of increasing difficulty. During andafter the test our heart rate, blood pressure, electrocardiogram and clinical symptoms are carefully observed. This data provides information on the status of your heart, blood pressure and physical f itness. The total time required to complete the test is 45 minutes to one hour. NOTHING TO EAT OR DRINK 2 HOURS PRIOR TO YOUR APPOINTMENT Specifically, DO NOT drink coffee or carbonated beverages that contain caffeine including drinks labeled decaffeinated. Drinks containing caffeine can artificially raise your heart rate. Tobacco should be avoided 4 hours prior to the procedure. Wear loose fitting clothes and comfortable shoes for exercise. Gym shorts would be appropriate. Medications: There are medications that can interfere with a Stress Echocardiogram. You may be instructed to hold medications. If so, they will be listed here: Prior to your procedure or test you will need to have a test to rule out Covid 19. This is an oral swab that is done at a drive-up testing site in [place]. You are to have this test completed no earlier than 96 hours but no less than 72 hours before your cardiac procedure or test. The testing site is at [address] [place] [address] in [place]. It is off of [address] between and [facility]. The hours of testing are Saturday to Saturday 8-3 as well as Saturday and Saturday 9-. The order will be entered in our system so you do not need an order to take with you. Please take ID and insurance card.If your test result comes back positive we will notify you. Otherwise please come to your test on the scheduled date and time listed above. Covid Test to be done on . documented in this encounter History of Present Illness * Juan Gonzalez Tamir Thomas, DO - 08/18/2018 10:36 AM EST Subjective Patient ID: Shravan Davenport is a 43 y.o. female. Patient states she woke up [place] with strep, treated with PCN. No relief, 4 days later at PCP steroid and AUgmentin rx'd. 3 weeks later, sore throat remained. Went to PCP, told to have it run itscourse, per patient. She went home and started Amoxicillin on her own as well as clindamycin rx recently. She ended up with abscesses on back of throat, cleared up 1 week ago. She now has flu symptoms : vomiting, sweating, backache. Severity: med Location: throat associated symptoms: negative for mono, but swollen glands. Numerous photo documented strep throat infections per patient's phone with multiple courses of antibiotics. The following portions of the patient's history were reviewed and updated as appropriate: allergies, current medications, past family history, past medical history, past social history, past surgicalhistory and problem list. Review of Systems Constitutional: Negative for chills and diaphoresis. HENT: Positive for sore throat. Negative for ear discharge and ear pain. Eyes: Negative for discharge and redness. Respiratory: Negative for apnea and cough. Cardiovascular: Negative for chest pain and palpitations. Musculoskeletal: Negative for neck pain and neck stiffness. Skin: Negative for color change and pallor. Allergic/Immunologic: Negative for immunocompromised state. Neurological: Negative for facial asymmetry and numbness. Hematological: Does not bruise/bleed easily. Psychiatric/Behavioral: Negative for agitation and confusion. Objective Physical Exam Constitutional: She is oriented to person, place, and time. She appears well- developed and well-nourished. The patient is well-developed and well-nourished without obvious deformity. HENT: Head: Normocephalic and atraumatic. Right Ear: Tympanic membrane, external ear and ear canal normal. Left Ear: Tympanic membrane, external ear and ear canal normal. Nose: Nose normal. Mouth/Throat: 3+ tonsils cryptic Eyes: Pupils are equal, round, and reactive to light. Conjunctivae, EOM and lids are normal. Left eye exhibits no chemosis. Neck: Normal range of motion. Neck supple. No tracheal deviation present. No thyromegaly present. Cardiovascular: Normal rate, regular rhythm and normal heart sounds. Pulmonary/Chest: Effort normal and breath sounds normal. No stridor. Lymphadenopathy: Head (right side): No submental, no submandibular, no preauricular, no posterior auricular and no occipital adenopathy present. Head (left side): No submental, no submandibular, no preauricular, no posterior auricular and no occipital adenopathy present. She has no cervical adenopathy. Right cervical: No superficial cervical adenopathy present. Left cervical: No superficial cervical and no deep cervical adenopathy present. Neurological: She is alert and oriented to person, place, and time. Coordination and gait normal. Cranial nerves 2-12 are grossly intact Fine motor touch and tracking appear normal. Skin: Skin is warm and dry. Psychiatric: She has a normal mood and affect. Her behavior is normal. Her mood appears not anxious. Her affect is not angry. Her speech is not delayed and not slurred. She is not agitated and not aggressive. Assessment/Plan: Diagnoses and all orders for this visit: Chronic tonsillitis I have discussed continued medical management vs tonsillectomy with the patient. The risks, benefits, and alternatives to this procedure have been discussed including but not limited to velopharyngeal reflux, change in sense of taste, bleeding, infection, scar formation, dehydration, etc. They voiced understanding and wishes to proceed with scheduling. I will have them sign the appropriate consent forms and see them back 3 weeks post op. in this encounter* Gonzalez Martinez Jr., DO - 10/09/2018 11:24 AM EDT Subjective Patient ID: Shravan Davenport is a 43 y.o. female. Patient is here for follow up of tonsillitis, to update H& P for surgery. Multiple history of strep positive tests, hospitalizations for tonsillitis and peritonsillar abscess The following portions of the patient's history were reviewed and updated as appropriate: allergies, current medications, past family history, past medical history, past social history, past surgicalhistory and problem list. Review of Systems Constitutional: Negative for chills and diaphoresis. HENT: Positive for sore throat. Negative for ear discharge and ear pain. Eyes: Negative for discharge and redness. Respiratory: Negative for apnea and cough. Cardiovascular: Negative for chest pain and palpitations. Musculoskeletal: Negative for neck pain and neck stiffness. Skin: Negative for color change and pallor. Allergic/Immunologic: Negative for immunocompromised state. Neurological: Negative for facial asymmetry and numbness. Hematological: Does not bruise/bleed easily. Psychiatric/Behavioral: Negative for agitation and confusion. Objective Physical Exam Constitutional: She appears well-developed and well-nourished. She does not have a sickly appearance. She does not appear ill. HENT: Head: Normocephalic and atraumatic. Right Ear: No drainage or swelling. Left Ear: No drainage or swelling. Nose: No mucosal edema or sinus tenderness. Mouth/Throat: Uvula is midline, oropharynx is clear and moist and mucous membranes are normal. Normal dentition. No oropharyngeal exudate or posterior oropharyngeal erythema. 2+ tonsils bilaterally that are highly cryptic Eyes: Pupils are equal, round, and reactive to light. Conjunctivae, EOM and lids are normal. Left eye exhibits no chemosis and no discharge. Neck: Normal range of motion. Neck supple. No edema and normal range of motion present. No thyroid mass and no thyromegaly present. Pulmonary/Chest: No stridor. Assessment/Plan: Diagnoses and all orders for this visit: Chronic tonsillitis I have discussed continued medical management vs tonsillectomy possible adenoidectomy with the patient. The risks, benefits, and alternatives to this procedure have been discussed including but not limited to velopharyngeal reflux, change in sense of taste, bleeding, infection, scar formation, dehyd ration, etc. They voiced understanding and wishes to proceed with scheduling. I will have them signthe appropriate consent forms and see them back 3 weeks post op. documented in this encounter* Gonzalez Martinez Jr., DO - 11/07/2018 8:59 AM EDT Subjective Patient ID: Shravan Davenport is a 43 y.o. female. Patient is here for post-op visit for tonsillectomy performed on 10/29/2018. Timin week Location:throat Severity: med Associated symptoms: pain in throat . Patient went to ED yesterday morning forpost op tonsillectomy pain. Physician Chief Green Officer agreed with notes in chart to alternate tylenol andMotrin. Was rx'd lidocaine 2% solution to spray q 3 hours. The following portions of the patient's history were reviewed and updated as appropriate: allergies, current medications, past family history, past medical history, past social history, past surgicalhistory and problem list. Review of Systems Constitutional: Negative for chills and diaphoresis. HENT: Positive for sore throat. Negative for ear discharge and ear pain. Eyes: Negative for discharge and redness. Respiratory: Negative for apnea and cough. Cardiovascular: Negative for chest pain and palpitations. Musculoskeletal: Negative for neck pain and neck stiffness. Skin: Negative for color change and pallor. Allergic/Immunologic: Negative for immunocompromised state. Neurological: Negative for facial asymmetry and numbness. Hematological: Does not bruise/bleed easily. Psychiatric/Behavioral: Negative for agitation and confusion. Objective Physical Exam HENT: Mouth/Throat: Surgically absent tonsils 10/29/2018 Assessment/Plan: Diagnoses and all orders for this visit: Chronic tonsillitis Appropriate post op tonsillectomy check. Patient's appearance and vital signs are within normal limits for post operative tonsillectomy. I have provided the patient with 15 norco 5/325 rx and will see her back at her scheduled appointment. The patient became very agitated and started swaring using the F- word toward me at which time I had my FISH FROG OR OYSTER FARMER come into the room for a witness. documented in this encounter* Gonzalez Martinez Jr., DO - 11/07/2018 7:45 AM EDT Patient was provided additional prescription for hycet elixir only a few days after surgery on 29 Oct 2018 at my office. This brings her total amount of hycet prescribed to 560ml and her total amount has been used up faster than prescribed. Patient called several times complaining of pain and requesting pill-form pain medication with the justification that the liquid form osorio during swallowing. Patient was reassured that although adult tonsillectomy is a painful procedure and this was discussed at length during the pre operative visit and during consent process, that it will improve over a short period of time, usually 5-9 days. The patient subsequently went to the emergency room for evaluation after she was encouraged to switch to ibuprofen and tylenol on an alternating basis. She was reassured again in the ER. My staff was then instructed to offer her an appointment in the office today 07 Nov 2018 for evaluation. Note that her tonsillectomy was performed without any complication and without blood loss. documented in this encounter* Gonzalez Martinez Jr., DO - 11/20/2018 3:04 PM EDT Subjective Patient ID: Shravan Davenport is a 43 y.o. female. Patient is here for post op visit, tonsillectomy on . timing 2 weeks location: throat severity: low associated symptoms: The following portions of the patient's history were reviewed and updated as appropriate: allergies, current medications, past family history, past medical history, past social history, past surgicalhistory and problem list. Review of Systems Constitutional: Negative for chills and diaphoresis. HENT: Negative for ear discharge and ear pain. Eyes: Negative for discharge and redness. Respiratory: Negative for apnea and cough. Cardiovascular: Negative for chest pain and palpitations. Musculoskeletal: Negative for neck pain and neck stiffness. Skin: Negative for color change and pallor. Allergic/Immunologic: Negative for immunocompromised state. Neurological: Negative for facial asymmetry and numbness. Hematological: Does not bruise/bleed easily. Psychiatric/Behavioral: Negative for agitation and confusion. Objective Physical Exam Constitutional: She appears well-developed and well-nourished. She does not have a sickly appearance. She does not appear ill. HENT: Head: Normocephalic and atraumatic. Right Ear: No drainage or swelling. Left Ear: No drainage or swelling. Nose: No mucosal edema or sinus tenderness. Mouth/Throat: Uvula is midline, oropharynx is clear and moist and mucous membranes are normal. Normal dentition. No oropharyngeal exudate or posterior oropharyngeal erythema. Eyes: Pupils are equal, round, and reactive to light. Conjunctivae, EOM and lids are normal. Left eye exhibits no chemosis and no discharge. Neck: Normal range of motion. Neck supple. No edema and normal range of motion present. No thyroid mass and no thyromegaly present. Pulmonary/Chest: No stridor. Assessment/Plan: Diagnoses and all orders for this visit: Chronic tonsillitis The patient presents 3 weeks post-op for tonsillectomy. They are doing well and are without complaints. The patient denies velopharyngeal reflux. No issues with swallow, tolerating PO, tolerating secretions, and no airway issues. I will see them back as needed. Pathology report reviewed with patient. Final Diagnosis A. Tonsil, Right, tonsillectomy: Reactive lymphoid hyperplasia. B. Tonsil, Left, tonsillectomy: Reactive lymphoid hyperplasia. documented in this encounter* Rekha Gomez, FLAMER AFTER LASTING - 02/11/2019 12:[address] [facility] Speech Language Pathology Fibroscopic Endoscopic Evaluation of Swallow (FEES) Procedure Note - Final Patient: Shravan Davenport Date of : 1975 [facility] Speech Language Pathology Fibroscopic Endoscopic Evaluation of Swallow (FEES) Procedure Note - Final Patient: Shravan Davenport Date of : 1975 General Information: General Information Ordering Physician: Dr. Roberson Date of Onset: 10/29/18 Type of Study: Initial FEES Mental Status: Alert, Oriented, Cooperative Oral Status: Permanent teeth Respiratory Status: Room air Feeding: Self Diet Prior to this Study: Thin liquid, Regular Patient Position: Upright in chair Endoscope: Passed transnasally left nare Patient Tolerance: Good Cough: Strong Vocal Quality: ( pressed , pt indicates significant vocal changes) Intubation Date: (n/a) Extubation Date: (n/a) History completed, risks / benefits explained, questions answered, patient identification verified,oral exam performed FEES scope utilized: distal chip; no topical anesthetic utilized Anatomic and Physiologic Assessment: Anatomic and Physiologic Assessment Secretion Consistency / Amount: Foamy Secretion Location / Response: (diffuse throughout pharyngeal space) Velar Closure: Complete Base of Tongue Retraction: Present Vocal Fold/Arytenoid Mobility and General Observation: Appears edematous Laryngeal Closure: Incomplete(glottal chink, incomplete medial ) Laryngeal Elevation: Present Pharyngeal Wall Medialization: Present Epiglottic Retroflexion: Complete Textures Used: Textures Textures used: Thin cup, Pudding spoon, Mechanical soft Oral Phase: Oral Preparation/Oral Phase Oral Phase: Within Functional Limits Pharyngeal Phase: Pharyngeal Phase Pharyngeal Phase: Mild Additional Observations: pt presenting with significant posterior pharyngeal wall cobblestoning, arytenoid edema and mild erythema Penetration: Penetration Present Penetration: No Aspiration: Aspiration Present Aspiration Present?: No Recommendations: Recommendations PO Recommendations: Regular solids, Thin liquid Strategies: Alternate solid and liquid Posture: Sit 90 degrees, Up 30 minutes after meal(strict reflux precautions) Food Presentation: Average bites Liquid Presentation: Average drinks Medication Presentation: Whole with thins(crush as needed/able) Amount of Supervision: Not required Treatment Techniques: No speech therapy(consider voice therapy after further diagnostic consultation) Suggested Consults: GI: Evaluate esophageal function, ENT: Evaluate laryngeal function(follow up with neuro as scheduled, endocrinology and rheumatology (also scheduled)) Factors for Returning to Prior Level of Function Body Structure and Function: Psychological impairment, Further assessment required to determine Explain Impairments: sensation of dry eyes, dry oral cavity (pt voices concern for Sjogren's), recent weight gain, heartburn intermittently (questionable compliance consistently with PPI - states shetakes as needed); hx significant for anxiety Explain Limitations: hx anxiety and depression, 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 Presented in referral from Dr. Roberson for complaint of ongoing globus sensation, feeling of thickness in pharyngeal region, regurgitation into nasal cavity (phlegm/emesis with food particles visible), resonance changes tovocal quality. Pt is s/p tonsillectomy in October 2017 with pt reported diagnosis of trigeminal neuralgia per dentist. Recent medical history significant for diagnosis of pituitary microadenoma (benign neoplasm of pituitary gland and craniopharyngeal duct-pouch). MBS revealing no liss aspiration, penetration, pharyngeal constrictor deficit, or diverticuli to explain globus sensation. Oropharyngeal swallow within functional limits with all consistencies trialed. FEES was suggested to further assess/visualize pharyngeal/laryngeal integrity. Radiologist report from MBS recommendationed consideration for conventional double-contrast barium esophagram... to better assess the possibility of reflux . FEES completed this pm revealing functional oral phase with very mild pharyngeal residue on posterior pharyngeal wall and in lateral channel (right greater than left). Pt report of sensation of pharyngeal residue was consistent with trials that had very minimal but present static material (hypersensate to minimal amt of residue). Susupicion for reflux changes due to cobblestoning on posterior pharyngeal wall, adhering/foaming secretions prior to food and liquid challenge, edema and erythema at level of arytenoids and interarytenoid space. There is also noted to be incomplete glottal closure with midline gap appreciated during phonation and glottal chink in posterior third of vocal process. Would consider further ENT assessment and consideration of GI consult for suspected ongoing reflux (currently on PPI with pt voicing inconsistent use). FEES reviewed with pt (visual and verbal), questions answered and emotional support provided. Voicetherapy could be a consideration following further consultation with ENT/GI re: possible impact from reflux. This note stands as the current Discharge Summary upon patient discharge from the hospital or completion of Speech Pathology Plan of Care. documented in this encounter* Carri Conway RN - 09/02/2020 9:38 AM EST Patient called to report that her heart rate had been in the 120's at her primary care's office. Patient had been prescribed Metoprolol tartrate by her primary care physician but had been hesitant totake it. She states that she did start to take it, but was only taking it once a day.Her blood pressure has been running in the 110's systolic. Dr Casarez notified of heart rate and blood pressure. PerDr Casarez, the patient is to take 25 mg BID and titrate up if necessary for rate control. This should be done through her primary care. Patient notified. documented in this encounter* Yevgeniy Casarez MD - 07/04/2020 2:43 PM EST OFFICE CONSULTATION NOTE [facility] [address] [facility] [address] [facility] [id number] Physicians: Eun Bar CNP (Family); Eun Bar CNP (Referring) Subjective: Shravan Davenport is a 44 y.o. 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 HPI: The patient is a pleasant 44-year-old female with a past medical history significant for benign pituitary tumor, IBS, anxiety/depression, and weight gain over the past 5 years. She presents with a several month history of sharp left- sided chest discomfort. This discomfort lasts 1 to 2 seconds and resolve spontaneously. It occurs predominantly at rest. She also notes palpitations several times a month. Moreover, she notices occasional palpitations which awaken her from sleep when she is rolling over. These are associated with shortness of breath. She has dyspnea on exertion and significant fatigue. She did have a stress echocardiogram in 2016 which was normal. Her echocardiogram showed normal LV systolic function with a small PFO that was unchanged from prior studies. In 2016, she was having many of the same symptoms. She denies any orthopnea, paroxysmal nocturnal dyspnea, or true syncope. Unfortunately, she smokes approximately half a pack of cigarettes a day. She drinks alcohol twicea week, eight drinks per evening. She drinks to the point of inebriation. Assessment & Plan: Intermittent chest pain The patient has a worrisome family history of heart disease. She is extremely concerned about the symptoms. I have ordered a repeat stress echocardiogram. If there is no demonstrable ischemia, I would continue to treat her with reassurance and risk modification. Palpitations I have ordered a 30-day event recorder to assess for symptom rhythm correlation. She was started onbeta-shaheed by primary care. Hyperlipidemia Patient has an extremely worrisome family history. I ordered a lipid profile. I would like her to be fasting for this study. Those results will be forthcoming. I would have a very low threshold for starting her on statin therapy. Tobacco Abuse The patient was warned about the adverse consequences of persistent tobacco abuse. Fatigue Her fatigue could be multifactorial. She does not exercise regularly anymore. However, I would strongly recommend a sleep study as untreated sleep apnea could be causing several of her symptoms including palpitations. I will leave that to primary care. The patient showed me some pictures of her feet. She did appear to have intermittent cyanosis and blanching of her toes. These findings were suspicious for Raynaud's phenomenon. If these issues continue, low-dose calcium channel shaheed could help. The results of her cardiac work-up will be forthcoming. If she does not have demonstrable ischemia or significant dysrhythmia, I would treat her with reassurance. Follow Up Ordered: Return if symptoms worsen or fail to improve. Histories: Past Medical History: Diagnosis Date Anxiety Depression GERD (gastroesophageal reflux disease) IBS (irritable bowel syndrome) with constipation Pituitary tumor Past Surgical History: Procedure Laterality Date breast augmentation COLONOSCOPY N/A 03/17/2019 Procedure: COLONOSCOPY; Surgeon: Ricky Scruggs MD; [place] [facility]; Service: Gastroenterology EGD N/A 03/17/2019 Procedure: ESOPHAGOGASTRODUODENOSCOPYwith bx; Surgeon: Ricky Scruggs MD; [place] [facility]; Service: Gastroenterology fallopian tube removal Right HYSTERECTOMY 2017 OOPHORECTOMY Right TONSILLECTOMY Bilateral 10/29/2018 Procedure: TONSILLECTOMY; Surgeon: Gonzalez Martinez Jr., DO; Location: [facility] OR; Service: Otolaryngology TONSILLECTOMY 10/29/2018 Outpatient, Dr. Martinez WRIST SURGERY Left hardware Family History Problem Relation Age of Onset Heart disease Father Heart attack Father 46 bypass Coronary artery disease Father Stroke Father Diabetes Father Neuropathy Father Social History Tobacco Use Smoking status: Current Every Day Smoker Packs/day: 0.00 Years: 10.00 Pack years: 0.00 Types: Cigarettes Last attempt to quit: 08/18/2017 Years since quittin.8 Smokeless tobacco: Never Used Substance Use Topics Alcohol use: Yes Alcohol/week: 0.0 standard drinks Comment: Occasional Drug use: No Current Outpatient Medications Medication Sig Dispense Refill estradiol (ESTRACE) 2 MG tablet Take 2 mg by mouth . hydrOXYzine (ATARAX) 25 MG tablet Take 25 mg by mouth 3 (three) times a day as needed for itching . metoprolol tartrate (LOPRESSOR) 50 MG tablet Take 50 mg by mouth 2 (two) times a day . omeprazole (PRILOSEC) 40 MG capsule Take 40 mg by mouth . venlafaxine (EFFEXOR-XR) 150 MG 24 hr capsule Take 150 mg by mouth daily . No current facility-administered medications for this visit. No Known Allergies Review of Systems Constitution: Positive for diaphoresis, malaise/fatigue and weight gain. Negative for weight loss. HENT: Negative for hearing loss, nosebleeds and tinnitus. Eyes: Negative for blurred vision and visual disturbance. Cardiovascular: Positive for chest pain, dyspnea on exertion, irregular heartbeat and palpitations.Negative for claudication, cyanosis, leg swelling, near-syncope, orthopnea, paroxysmal nocturnal dyspnea and syncope. Respiratory: Positive for shortness of breath. Negative for hemoptysis and snoring. Endocrine: Negative for cold intolerance and heat intolerance. Hematologic/Lymphatic: Does not bruise/bleed easily. Skin: Positive for color change. Negative for flushing, poor wound healing and rash. Musculoskeletal: Negative for back pain, muscle weakness and myalgias. Gastrointestinal: Negative for abdominal pain, change in bowel habit, melena, nausea and vomiting. Genitourinary: Negative for decreased libido and hematuria. Neurological: Negative for loss of balance and numbness. Psychiatric/Behavioral: Negative for memory loss. The patient is nervous/anxious. Overview of Problems Addressed: Problem Intermittent Chest Pain Palpitations Hyperlipidemia Tobacco Abuse Fatigue Objective: Physical Exam Constitutional: She is oriented to person, place, and time. She appears well- developed and well-nourished. She is mildly diaphoretic. HENT: Head: Normocephalic. Eyes: Pupils are equal, round, and reactive to light. Conjunctivae and EOM are normal. No scleral icterus. Neck: Normal range of motion. Neck supple. No JVD present. No tracheal deviation present. No thyromegaly present. Cardiovascular: Normal rate, regular rhythm, S1 normal, S2 normal, normal heart sounds and intact distal pulses. Exam reveals no friction rub. No murmur heard. Pulmonary/Chest: Breath sounds normal. No respiratory distress. She has no wheezes. She has no rales. Abdominal: Soft. Bowel sounds are normal. She exhibits no distension and no mass. There is no hepatosplenomegaly. There is no abdominal tenderness. Musculoskeletal: Normal range of motion. General: No edema. Lymphadenopathy: She has no cervical adenopathy. Neurological: She is alert and oriented to person, place, and time. Skin: Skin is warm and dry. Psychiatric: She has a normal mood and affect. Her behavior is normal. Vitals: Vitals: 07/04/20 1412 BP: 112/66 BP Location: Right arm Patient Position: Sitting BP Cuff Size: Adult Pulse: 77 SpO2: 98% Weight: 85.3 kg (188 lb) Height: 5' 6 Orders Placed This Encounter Lipid Panel Cardiac event monitor ECG 12 Lead Echocardiogram stress test venlafaxine (EFFEXOR-XR) 150 MG 24 hr capsule metoprolol tartrate (LOPRESSOR) 50 MG tablet hydrOXYzine (ATARAX) 25 MG tablet Thank you for allowing me to assist you in the cardiovascular care of this patient. Please don't hesitate to contact me if you have any questions regarding these thoughts. Yevgeniy Casarez MD documented in this encounter* Nohemi Flores MD - 09/15/2020 12:43 PM EDT Telephone Visit Via Phone Call I discussed risks, benefits and alternatives of a telephone visit telemedicine consultation with the patient (and any accompanying persons) including the risks that the patient's personal health details and medical records will be discussed over real-time, synchronous, interactive audio technology,the visit will not be recorded without the express consent of both the provider and the patient, and that there are inherent diagnostic limitations compared to [id number] evaluations. We elected toproceed with the telephone visit telemedicine consultation. I have spent 30 minutes with the patient reviewing the HPI and Plan of Care. The patient indicates understanding of these issues and agrees with the plan. RHEUMATOLOGY NEW PATIENT VISIT Patients name: Shravan Davenport : 1975 Today's date: 09/15/2020 Reason for visit: patient concerned for SLE HPC: This is a 45 y.o. female with a pmhx of tobacco abuse, ratkes cyst, tobacco abuse who presentsfor eval of myalgia in setting of multiple symptoms. Started 3 years ago, in best shape Started with blurry vision Then cognitive issues Hard time in UV light, sun bothered her Eyes were tested, told eyes were dry -> told to be evaluated for Sjogrens. Went to neurologist 3 years ago-> tested her many things. Main issues: cognitive and fatigue Tested for Sjogrens and was told everything was negative. MRI of back showed disc issues, DJD. 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 Prolactin was high at one point. This Dr didn't think this was causing sx -> watching this issue. Her cortisol was high Started loosing hair, feet were inflammed, purple, white, ankles. 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 Patient read about SLE and felt her symptoms matched with SLE. MILVIA was tested and was low/speckled. Thyroid was abnormal-> prescribed treatment Tachycardic -> put on treatment Had a bad spell with blurry vision & confusion Lost 9 lbs in 2 days which she feels water loss. Feet are bad: has pictures which she will try and send. Thinks she had butterfly rash, but was more flushing, no blisters. This has been on and off Low grade fever on and off 99/100 Feet sometimes look purple. IS smoking. Extreme fatigue. +nose lesions No fluid around lungs or heart. Never been told she had protein in urine. No miscarriage. Prior Rheum appts: NIL Interim: I have reviewed the patient's medical history in detail and updated the computerized patient record. Past Medical History: Diagnosis Date Anxiety Depression GERD (gastroesophageal reflux disease) IBS (irritable bowel syndrome) with constipation Pituitary tumor Past Surgical History: Procedure Laterality Date breast augmentation COLONOSCOPY N/A 03/17/2019 Procedure: COLONOSCOPY; Surgeon: Ricky Scruggs MD; [facility] [facility]; Service: Gastroenterology EGD N/A 03/17/2019 Procedure: ESOPHAGOGASTRODUODENOSCOPYwith bx; Surgeon: Ricky Scruggs MD; Location: [facility]; Service: Gastroenterology fallopian tube removal Right HYSTERECTOMY 2017 OOPHORECTOMY Right TONSILLECTOMY Bilateral 10/29/2018 Procedure: TONSILLECTOMY; Surgeon: Gonzalez Martinez Jr., DO; Location: [facility] OR; Service: Otolaryngology TONSILLECTOMY 10/29/2018 Outpatient, Dr. Martinez WRIST SURGERY Left hardware Social History Tobacco Use Smoking status: Current Every Day Smoker Packs/day: 0.00 Years: 10.00 Pack years: 0.00 Types: Cigarettes Last attempt to quit: 08/18/2017 Years since quittin.0 Smokeless tobacco: Never Used Substance Use Topics Alcohol use: Yes Alcohol/week: 0.0 standard drinks Comment: Occasional Drug use: No Family History Problem Relation Age of Onset Heart disease Father Heart attack Father 46 bypass Coronary artery disease Father Stroke Father Diabetes Father Neuropathy Father No Known Allergies No outpatient medications have been marked as taking for the 09/15/20 encounter (Appointment) with Nohemi Flores MD. Review of Systems: General Constitutional: as per HPI Eyes: as per HPI ENT: denied nasal drainage, sinus pressure, +nasal ulcers Mouth: as per HPI Lymphatics: as per HPI Respiratory: as per HPI CV: +palpitations, no chest pain/pressure, PND, orthopnea. GI: denied abd pain, n/v/d, constipation, melena. : denied dysuria, urgency, frequency or hematuria, no miscarraiges Skin: as per HPI Musculoskeletal: as per HPI Hematologic/lmmunologic: no adenopathy, bleeding, easy bruisiality or recurrent infection. Neurology: Denied new headaches, speech/balance/coordination problems. Denied new focal numbness orweakness of extremities, no admissions for seizures or psychosis. Psych: as per HPI A 10 point review of systems was completed. Physical Exam: There were no vitals taken for this visit. DATA: I have reviewed lab work and imaging. Labs:reviewed. Imaging: reviewed. Health Maintenance Due Topic Date Due Tetanus: Every 10yrs Never done Mammogram Never done Pap Smear Never done Wellness Visit Never done Depression Screening (PHQ9) Never done HIV Screening Never done COVID-19 Vaccine (1) Never done Hepatitis C Screening Never done Sequential Influenza Vaccine (1) Never done Assessment & Plan Myalgia, fatigue, multiple symptoms - patient has concern for SLE - Pain in her low back, shoulders, and feet. - Plan: BOSSMAN Screen (SSA/B,SM,TIPPLE OPERATOR,SCL70,JO1), Vitamin D, Total, 25-OH, C3 Complement, C4 Complement,CBC and Differential, Creatinine, serum, Anti-DNA Double-Stranded Antibody, Urinalysis, MILVIA, Protein / Creatinine Ratio, Urine The patient indicates understanding of these issues and agrees with the plan. Return to clinic in 4-6 month(s) Telehealth appointments ok. Nohemi Flores MD Mail Handler Assistant Environmental Health Aide Note: To expedite correspondence this note was generated by Cherry voice recognition software. Somegrammatical or spelling errors may occur using the system. documented in this encounter Assessments Diagnosis Chronic tonsillitis- Primary Diagnosis Acute right-sided low back pain with sciatica, sciatica laterality unspecified Diagnosis Chronic tonsillitis- Primary Diagnosis Chronic tonsillitis Diagnosis Post-tonsillectomy pain- Primary Diagnosis Chronic tonsillitis- Primary Diagnosis Chronic tonsillitis- Primary Diagnosis Benign neoplasm of pituitary gland and craniopharyngeal duct (pouch) (HCC) Benign neoplasm of pituitary gland and craniopharyngeal duct (pouch) Diagnosis Benign neoplasm of pituitary gland and craniopharyngeal duct (pouch) (HCC) Benign neoplasm of pituitary gland and craniopharyngeal duct (pouch) Diagnosis Gastroesophageal reflux disease, esophagitis presence not specified Rectal bleeding Hemorrhage of rectum and anus Constipation, unspecified constipation type Family history of colon cancer Family history of malignant neoplasm of gastrointestinal tract Diagnosis Pre-operative cardiovascular examination- Primary Diagnosis Intermittent chest pain Palpitations Diagnosis Dysphagia, unspecified type Diagnosis Intermittent chest pain Palpitations Diagnosis Problems with swallowing and mastication Diagnosis Inflammation around joint- Primary Enthesopathy of unspecified site Diagnosis Hyperlipidemia, unspecified hyperlipidemia type- Primary Intermittent chest pain Palpitations Tobacco Abuse Tobacco use disorder Fatigue, unspecified type Diagnosis Myalgia- Primary Unspecified myalgia and myositis 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 Osteomalacia, unspecified Healthcare maintenance Reason for Referral Status Reason Specialty Diagnoses / Procedures Referre d By Contact Referred To Contact Closed Radiology Diagnoses Acute right-sided low back pain with sciatica, sciatica laterality unspecified Procedures MR Lumbar Spine Without Contrast Leonardo Roberson MD [address] [place] [address] Status Reason Specialty Diagnoses / Procedures Re ferred By Contact Referred To Contact Closed Radiology Diagnoses Benign neoplasm of pituitary gland and craniopharyngeal duct (pouch) (HCC) Procedures MR Orbits With And Without Contrast Leonardo Roberson MD [address] [place] [address] Status Reason Specialty Diagnoses / Procedures Re ferred By Contact Referred To Contact Closed Radiology Diagnoses Benign neoplasm of pituitary gland and craniopharyngeal duct (pouch) (HCC) Procedures MR Brain With And Without Contrast Leonardo Roberson MD [address] [place] [address] Status Reason Specialty Diagnoses / Procedures Re ferred By Contact Referred To Contact Closed Radiology Diagnoses Benign neoplasm of pituitary gland and craniopharyngeal duct (pouch) (HCC) Procedures MR Pituitary With And Without Contrast Leonardo Roberson MD [address] [place] [address] Status Reason Specialty Diagnoses / Procedures Referred By Contact Referred To Contact Pending Review Cardiology Diagnoses Intermittent chest pain Palpitations Procedures Cardiac event monitor Yevgeniy Casarez MD [address] [place] [address] Status Reason Specialty Diagnoses / Procedures Referred By Contact Referred To Contact Pending Review Radiology Diagnoses Problems with swallowing and mastication Procedures XR Modifed Barium Swallow Leonardo Roberson MD [address] [place] [address] Status Reason Specialty Diagnoses / Procedures Re ferred By Contact Referred To Contact Closed Radiology Diagnoses Benign neoplasm of pituitary gland and craniopharyngeal duct (pouch) (HCC) Procedures MR/MRA Brain Without Contrast Leonardo Roberson MD [address] [place] [address] Status Reason Specialty Diagnoses / Procedures Referred By Contact Referred To Contact Pending Review Cardiology Diagnoses Intermittent chest pain Palpitations Procedures Echocardiogram stress test Yevgeniy Casarez MD [address] [place] [address] Status Reason Specialty Diagnoses / Procedures Referred By Contact Referred To Contact Closed Specialty Services Required/Patient 's Best Interest Rheumatology Diagnoses Myalgia Nohemi Flores MD [address] [place] [address] EXTERNAL CASE LOCATION Specialty Diagnoses / Procedures Referred By Contac t Referred To Contact Vascular Surgery Diagnoses Vascular disease Mitali Liao MD [address] [place] [address] Mark Anthony Monroe III, DO [address] [place] [address] Referral ID Status Reason Start Date Expiration Date Visits Requested Visits Authorized [id number] Authorized Specialty Services Required/Pat ient's Best Interest 02/22/2021 02/22/2022 1 1 Specialty Diagnoses / Procedures Referred By Contac t Referred To Contact Neurology Diagnoses Vascular disease Mitali Liao MD [address] [place] [address] Marcus Curtis MD [address] [place] [id number] Referral ID Status Reason Start Date Expiration Date Visits Requested Visits Authorized [id number] Authorized Specialty Services Required/Pat ient's Best Interest 03/15/2021 03/15/2022 1 1 Specialty Diagnoses / Procedures Referred By Contac t Referred To Contact Diagnoses Autonomic dysfunction Procedures CONSULT TO NEUROMUSCULAR MEDIC OFFICE/OUTPATIENT [facility] 60-74 MINUTES Abigail Perez, [address] [place] [address] Referral ID Status Reason Start Date Expiration Date Visits Requested Visits Authorized [id number] Authorized PCP Requested Referral 09/19/2021 09/19/2022 1 1 Specialty Diagnoses / Procedures Referred By Contac t Referred To Contact Diagnoses Interstitial lung disease Procedures CT CHEST WITHOUT CONTRAST CHG DIAGNOSTIC COMPUTED TOMOGRAPHY THORAX W/O CNTRST Sabino Toure MD [address] [place], [place] [id number] Referral ID Status Reason Start Date Expiration Date V isits Requested Visits Authorized [id number] Auth Not Needed 10/13/2021 11/07/2022 1 1 Specialty Diagnoses / Procedures Referred By Contac t Referred To Contact Diagnoses Secondary pulmonary arterial hypertension Procedures ECHOCARDIOGRAM GA ECHO HEART XTHORACIC,COMPLETE W DOPPLER Sabino Toure MD [address] [place] [address] Referral ID Status Reason Start Date Expiration Date V isits Requested Visits Authorized [id number] Auth Not Needed 10/13/2021 11/07/2022 1 1 Specialty Diagnoses / Procedures Referred By Contac t Referred To Contact Diagnoses Shortness of breath Procedures PFT COMPLETE Sabino Toure MD [address] [place], [place] [id number] Referral ID Status Reason Start Date Expiration Date V isits Requested Visits Authorized [id number] Auth Not Needed 10/13/2021 11/07/2022 1 1 Specialty Diagnoses / Procedures Referred By Contac t Referred To Contact Diagnoses Shortness of breath Procedures EXERCISE-6 MIN. 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 (NSAID) alf current use of systemic steroids Multiple chemical sensitivity syndrome, sequela Interstitial lung disease Raynaud's disease without gangrene Dry mouth Vitamin D deficiency Xerostomia Keratoconjunctivitis sicca Bilateral calcaneal spurs Degenerative cervical disc Enchondroma of bone of hand, right Lumbar degenerative disc disease Osteoarthritis of facet joint of cervical spine Osteochondral defect Primary osteoarthritis of both feet Primary osteoarthritis of both knees Primary osteoarthritis of right shoulder Chas Thomas, Karlo Lord, DO [address] [place] [address] Referral ID Status Reason Start Date Expiration Date Visits Re quested Visits Authorized [id number] Closed 1 1 Specialty Diagnoses / Procedures Referred By Contac t Referred To Contact Computerized Tomography Scan Diagnoses Interstitial lung disease Procedures CT CHEST WITHOUT CONTRAST CHG DIAGNOSTIC COMPUTED TOMOGRAPHY THORAX W/O CNTRST Sabino Toure MD [address] [place] [address] [facility] [address] Scan [address] [place] [address] Referral ID Status Reason Start Date Expiration Date Visits Re quested Visits Authorized [id number] Closed 10/13/2021 11/07/2022 1 1 Specialty Diagnoses / Procedures Referred By Contac t Referred To Contact Pulmonology Diagnoses Asthmatic bronchitis without complication, unspecified asthma severity, unspecified whether persistent Procedures PFT methacholine challenge Sabino Khan MD [address] [place] [address] Referral ID Status Reason Start Date Expiration Date V isits Requested Visits Authorized [id number] Authorized 11/30/2021 11/30/2022 1 1 Specialty Diagnoses / Procedures Referred By Contbridgette t Referred To Contact Radiology Diagnoses Heartburn Gaseous regurgitation Nausea Bloating Procedures NM Gastric Emptying Crystal Medina, MACHINE ASSEMBLER [address] [facility] [address] [place] [address] [facility] [address] [place] [address] Referral ID Status Reason Start Date Expiration Date V isits Requested Visits Authorized [id number] New Request 01/03/2022 01/03/2023 4 4 Specialty Diagnoses / Procedures Referred By Contact Referred To Contact Cardiovascular Medicine Diagnoses Palpitations Dizziness and giddiness Orthostatic hypotension Secondary pulmonary arterial hypertension Dyspnea on exertion Procedures ECG, TREADMILL STRESS (NON-IMAGING) GA CV STRS TST XERS&/OR RX CONT ECG W/SI&R Mitali Ibarra MD [address] [place] [address] Joaquim Ont Cardiology [facility] [address] [place] [address] Referral ID Status Reason Start Date Expiration Date Visits Re quested Visits Authorized [id number] Closed 05/21/2022 06/15/2023 1 1 Specialty Diagnoses / Procedures Referred By Contac t Referred To Contact Diagnoses Hematuria, gross Procedures CT UROGRAM ABDOMEN/PELVIS W/ CT POST PROCESSING Marion Koroma, HEAVY MOBILE EQUIPMENT REPAIRER-MACHINE ASSEMBLER [address] [facility] [address] [place] [address] Referral ID Status Reason Start Date Expiration Date V isits Requested Visits Authorized [id number] New Request 11/26/2022 12/21/2023 1 1 Specialty Diagnoses / Procedures Referred By Contac t Referred To Contact Diagnoses Leakage of breast prosthesis and implant, initial encounter Breast implant leak, initial encounter S/P breast implant, silicone Procedures MRI BREAST BILATERAL WITHOUT CONTRAST MRI BREAST BILATERAL WITHOUT CONTRAST CHG MRI BREAST WITHOUT CONTRAST MATERIAL BILATERAL Anh Post, HEAVY MOBILE EQUIPMENT REPAIRER-MACHINE ASSEMBLER [address] [place] [phone] Referral ID Status Reason Start Date Expiration Date V isits Requested Visits Authorized [id number] New Request 02/20/2023 03/16/2024 1 1 Specialty Diagnoses / Procedures Referred By Contac t Referred To Contact Radiology Diagnoses Bilateral hip pain Procedures MR Hip Left Without Contrast Viau, Mitali Barreto MD [address] [place] [address] Referral ID Status Reason Start Date Expiration Date V isits Requested Visits Authorized [id number] Authorized 06/03/2023 06/02/2024 1 1 Discharge Instructions * Discharge Instr - Other Orders* Chely Newby RN - 10/29/2018 10:40 AM EDT GENERAL POST-OPERATIVE PATIENT INSTRUCTIONS ANESTHESIA PRECAUTIONS: A responsible adult must stay with you for at least 24 hours after surgery. You may feel light headed,, dizzy, or nauseated during this time. Do not operate a vehicle (car, bike, motorcycle, shelter advocate) machinery or power tools. Do not make any important decisions or drink any alcoholic beverages for 24 hours. Children should remain quiet today. No riding of bicycles, motorcycles, skateboards, playing on swings etc. Drink plenty of fluids today. Eat light, small, frequent meals today. Resume regular diet tomorrow. FOLLOW-UP: Please make an appointment with your physician for follow-up. Call your physician immediately if you have any fevers greater than 101, drainage from your wound that is not clear or looks infected, persistent bleeding, increasing abdominal pain, problems urinating, or persistent nausea/vomiting. DIET: You may eat any foods that you can tolerate. It is a good idea to eat a high fiber diet and take in plenty of fluids to prevent constipation. If you do become constipated you may want to take amild laxative or take ducolax tablets on a daily basis until your bowel habits are regular. Constipation can be very uncomfortable, along with straining, after recent surgery. ACTIVITY: You are encouraged to cough and deep breathe or use your incentive spirometer if you weregiven one, every 15-30 minutes when awake. This will help prevent respiratory complications and lowgrade fevers post-operatively if you had a general anesthetic. You are encouraged to walk and engage in light activity for the next two weeks. MEDICATIONS: Try to take narcotic medications and anti-inflammatory medications, such as ibuprofen,naprosyn, etc., with food. This will minimize stomach upset from the medication. Should you developnausea and vomiting from the pain medication, or develop a rash, please discontinue the medication and contact your physician. You should not drive, make important decisions, or operate machinery when taking narcotic pain medication. Do not take tylenol or tylenol products with narcotic medications. QUESTIONS: Please feel free to call your physician or the hospital batch operator if you have any questions, and they will be glad to assist you. Discharge instructions reviewed with patient and family/friend, all questions answered, verbalized understanding. Including but not limited to signs and symptoms of infection; fever over 100, rednessat the incision site, foul smelling drainage around the incisional site, and increased, unrelentingPain. Call 911 instructions also reviewed and highlighted on instruction sheet. Prescriptions given to patient along with copy of discharge instructions. * Additional Instructions* Jacy Navarrete RN - 10/29/2018 GENERAL POST-OPERATIVE PATIENT INSTRUCTIONS ANESTHESIA PRECAUTIONS: A responsible adult must stay with you for at least 24 hours after surgery. You may feel light headed,, dizzy, or nauseated during this time. Do not operate a vehicle (car, bike, motorcycle, shelter advocate) machinery or power tools. Do not make any important decisions or drink any alcoholic beverages for 24 hours. Children should remain quiet today. No riding of bicycles, motorcycles, skateboards, playing on swings etc. Drink plenty of fluids today. Eat light, small, frequent meals today. Resume regular diet tomorrow. FOLLOW-UP: Please make an appointment with your physician for follow-up. Call your physician immediately if you have any fevers greater than 101, drainage from your wound that is not clear or looks infected, persistent bleeding, increasing abdominal pain, problems urinating, or persistent nausea/vomiting. DIET: You may eat any foods that you can tolerate. It is a good idea to eat a high fiber diet and take in plenty of fluids to prevent constipation. If you do become constipated you may want to take amild laxative or take ducolax tablets on a daily basis until your bowel habits are regular. Constipation can be very uncomfortable, along with straining, after recent surgery. ACTIVITY: You are encouraged to cough and deep breathe or use your incentive spirometer if you weregiven one, every 15-30 minutes when awake. This will help prevent respiratory complications and lowgrade fevers post-operatively if you had a general anesthetic. You are encouraged to walk and engage in light activity for the next two weeks. MEDICATIONS: Try to take narcotic medications and anti-inflammatory medications, such as ibuprofen,naprosyn, etc., with food. This will minimize stomach upset from the medication. Should you developnausea and vomiting from the pain medication, or develop a rash, please discontinue the medication and contact your physician. You should not drive, make important decisions, or operate machinery when taking narcotic pain medication. Do not take tylenol or tylenol products with narcotic medications. QUESTIONS: Please feel free to call your physician or the hospital batch operator if you have any questions, and they will be glad to assist you. documented in this encounter* Instructions* Chel George PA-C - 11/06/2018 Please follow-up with your primary care doctor within 1 to 3 days. Also ask that you contact Dr. Martinez's office for a sooner follow-up if pain persists. May use viscous lidocaine 3 times a day as needed for pain. Asked that you do not eat for an hour after using this. Asked alternate Tylenol every 4hours and Motrin every 6 hours to control pain. If symptoms worsen or persist may present back to the ER. * Attachments The following attachments cannot be sent through Care Everywhere. * Pain Post-Surgery: Acute (Lao) documented in this encounter* Attachments The following attachments cannot be sent through Care Everywhere. * Hemorrhoids (Lao) * High-Fiber Diet (Lao) documented in this encounter Additional Source Comments INFORMATION SOURCE (unrecogn ized section and content) DATE CREATED AUTHOR AUTHOR'S ORGANIZ ATION 07/30/2020 [facility] DATE CREATED AUTHOR AUTHOR'S ORGANIZ ATION 07/30/2021 [facility] DATE CREATED AUTHOR AUTHOR'S ORGANIZ ATION 03/02/2022 [facility] DATE CREATED AUTHOR AUTHOR'S ORGANIZ ATION 06/29/2022 [facility] DATE CREATED AUTHOR AUTHOR'S ORGANIZ ATION 07/27/2022 [facility] DATE CREATED AUTHOR AUTHOR'S ORGANIZ ATION 12/03/2022 [facility] DATE CREATED AUTHOR AUTHOR'S ORGANIZ ATION 12/03/[address] [facility] DATE CREATED AUTHOR AUTHOR'S ORGANIZ ATION 06/04/2023 [facility] DATE CREATED AUTHOR AUTHOR'S ORGANIZ ATION 06/30/2023 [facility] Reason for Visit (unrecogniz ed section and content) Status Reason Specialty Diagnoses / Procedures Referre d By Contact Referred To Contact Closed Radiology Diagnoses Acute right-sided low back pain with sciatica, sciatica laterality unspecified Procedures MR Lumbar Spine Without Contrast Leonardo Roberson MD [address] [place] [address] Reason Comments Follow-up Patient is here for follow up of tonsillitis, to update H& P for surgery. Timin weeks location: throat, Severity: med Associated symptoms: sore throat Status Reason Specialty Diagnoses / Procedures Referre d By Contact Referred To Contact Diagnoses Chronic tonsillitis Chronic tonsillitis [J35.01] Procedures GA REMOVAL OF TONSILS 12+ YRS TONSILLECTOMY Reason Comments Sore Throat Reason Comments Follow-up Patient is here for post-op visit for tonsillectomy performed on 10/29/2018. Timin week Location: throat Severity: med Associated symptoms: tongue pain. Patient went to ED yesterday morning for post op tonsillectomy pain. Physician Chief Green Officer agreed with notes in chart to alternate tylenol and Motrin. Was rx'd lidocaine 2% solution to spray q 3 hours. Reason Comments Follow-up Patient is here for post op visit, tonsillectomy on . timing 2 weeks location: throat severity: low associated symptoms: left ear pain. Patient states she was dx'd with trigeminal neuralgia by her neurologist. She complains of hearing difficult. Hearing evaluation offered. She states she will wait. Status Reason Specialty Diagnoses / Procedures Re ferred By Contact Referred To Contact Closed Radiology Diagnoses Benign neoplasm of pituitary gland and craniopharyngeal duct (pouch) ([facility]) Procedures MR Orbits With And Without Contrast Leonardo Roberson MD [address] [place] [address] Status Reason Specialty Diagnoses / Procedures Re ferred By Contact Referred To Contact Closed Radiology Diagnoses Benign neoplasm of pituitary gland and craniopharyngeal duct (pouch) (HCC) Procedures MR Brain With And Without Contrast Leonardo Roberson MD [address] [place] [address] Status Reason Specialty Diagnoses / Procedures Re ferred By Contact Referred To Contact Closed Radiology Diagnoses Benign neoplasm of pituitary gland and craniopharyngeal duct (pouch) (HCC) Procedures MR Pituitary With And Without Contrast Leonardo Roberson MD [address] [place] [address] Status Reason Specialty Diagnoses / Procedures Referred By Contact Referred To Contact Pending Review Cardiology Diagnoses Intermittent chest pain Palpitations Procedures Cardiac event monitor Yevgeniy Casarez MD [address] [place] [address] Status Reason Specialty Diagnoses / Procedures Referred By Contact Referred To Contact Authorized Speech Pathology / Rehabilitation Diagnoses Dysphagia, unspecified type Leonardo Roberson MD [address] [place] [address] Op Speech Therapy [address] [place] [address] Status Reason Specialty Diagnoses / Procedures Referre d By Contact Referred To Contact Closed Cardiology Diagnoses Intermittent chest pain Palpitations Procedures Stress Echo w/contrast and Echo LImited No Color Flow Echocardiogram stress test Yevgeniy Casarez MD [address] [place] [address] Status Reason Specialty Diagnoses / Procedures Referred By Contact Referred To Contact Pending Review Radiology Diagnoses Problems with swallowing and mastication Procedures XR Modifed Barium Swallow Leonardo Roberson MD [address] [place] [address] Reason Onset Date Comments Tachycardia 09/02/2020 Status Reason Specialty Diagnoses / Procedures Re ferred By Contact Referred To Contact Closed Radiology Diagnoses Benign neoplasm of pituitary gland and craniopharyngeal duct (pouch) (HCC) Procedures MR/MRA Brain Without Contrast Leonardo Roberson MD [address] [place] [address] Reason Comments Initial Visit (Intake) IN CLINIC-- CORE ANALYST ov w/ EKG Shortness of Breath Fatigue Status Reason Specialty Diagnoses / Procedures Referre d By Contact Referred To Contact Closed Cardiology Diagnoses Intermittent chest pain Palpitations Eun Bar, MACHINE ASSEMBLER [address] [facility] [address] [place] [address] [facility] [address] [facility] [place] [address] Reason Comments Pain Reason Onset Date Comments Medication Refill 02/22/2021 Reason Comments Pain Follow-up Specialty Diagnoses / Procedures Referred By Contac t Referred To Contact Neurology Diagnoses Vascular disease Mitali Liao MD [address] [place] [address] Marcus Curtis MD [address] [place] [address] Referral ID Status Reason Start Date Expiration Date V isits Requested Visits Authorized [id number] Closed Specialty Services Required/Maude ent's Best Interest 03/15/2021 03/15/2022 1 1 Reason Comments Appointment Reason Comments Orders Reason Comments Erroneous encounter-disregard Reason Comments Dizziness Reason Comments New Patient Specialty Diagnoses / Procedures Referred By Contac t Referred To Contact Diagnoses Autonomic dysfunction Procedures CONSULT TO NEUROMUSCULAR MEDIC OFFICE/OUTPATIENT NEW HIGH MDM 60-74 MINUTES Abigail Perez, DO [address] [place] [address] Referral ID Status Reason Start Date Expiration Date V isits Requested Visits Authorized [id number] Closed PCP Requested Referral 09/19/2021 09/19/2022 1 1 Reason Comments Other New Patient-ILD/SOB Specialty Diagnoses / Procedures Referred By Contac t Referred To Contact Pulmonary Disease Diagnoses Raynaud's disease without gangrene Rathke's cleft cyst Hyponatremia Hyperglycemia Keratoconjunctivitis sicca 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 Synovial cyst of hand Primary osteoarthritis of right shoulder Primary osteoarthritis of both knees Primary osteoarthritis of both feet Osteochondral defect Osteoarthritis of facet joint of cervical spine Lumbar degenerative disc disease Enchondroma of bone of hand, right Degenerative cervical disc Bilateral calcaneal spurs Rash Lichen planus Normochromic normocytic anemia Xerostomia alf current use of non-steroidal anti-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 (NSAID) Ketonuria History of Raynaud's syndrome Dry mouth Dry eyes CRP elevated Abnormal x-ray Fatigue, unspecified type Chas Thomas, Karlo Lord, DO [address] [place] [address] Sabino Toure MD [address] [place] [address] Referral ID Status Reason Start Date Expiration Date V isits Requested Visits Authorized [id number] New Request 07/25/2021 08/19/2022 1 1 Reason Comments Procedure Reason Comments Joint Pain Patient is here toda y for her 2 Month F/U. Patient states she is having severe itching on her JOVANI foot. Patient states she stopped the Methotrexate due to having severe hair loss, rash on face and cough. Patient states she is also having stomach issues. Specialty Diagnoses / Procedures Referred By Marti dangelo Referred To Contact Computerized Tomography Scan Diagnoses Interstitial lung disease Procedures CT CHEST WITHOUT CONTRAST CHG DIAGNOSTIC COMPUTED TOMOGRAPHY THORAX W/O CNTRST Sabino Toure MD [address] [place] [address] Scan [address] [place] [address] Referral ID Status Reason Start Date Expiration Date Visits Re quested Visits Authorized [id number] Closed 10/13/2021 11/07/2022 1 1 Specialty Diagnoses / Procedures Referred By Marti dangelo Referred To Contact Pulmonary Disease Diagnoses Shortness of breath Procedures PFT COMPLETE Sabino Toure MD [address] [place] [address] Joaquim Gal Respiratory Therapy [address] [place] [address] Referral ID Status Reason Start Date Expiration Date Visits Re quested Visits Authorized [id number] Closed 10/13/2021 11/07/2022 1 1 Reason Comments Consult Extreme bloating, na usea, vomiting, SOB & choking Reason Comments Follow-up 8 weeks-Test results -Asthma Reason Comments Joint Pain Patient is here toda y for her 3 Month F/U. Patient states she seen a Gastro Dr. Castillo for her stomach issues. Patient states she is seeing Dr. Khan for her breathing issues, she was diagnosed with Asthma. Patient states the past couple weeks she was in tachycardia, she did not go to the ER no one cares and no one follows up, standing HR was 154 and sitting HR was 134. Patient states her may concern is fatigue, breathing issues and fatigue. Patient states she thinks she has something more going on. Follow-up Patient states she d oes not think the Humira is working. Patient states she is having achiness and joint pain. Patient states 3-4 days before she is due for her next Humira injection she will have severe stomach pain, tachycardia, cough, joint pain, she does not think its lasting the full 2 weeks. Patient states she had an echocardiogram done and it came back abnormal but no one is looking into it. Patient states she has blisters on her face. Patient states she is so sick and she thinks she has cancer. Reason Comments Post-op EGD with Biopsy, Bra vo PH Study 01/17/2022 Reason Comments Pain OPNP-ongoing x 8 mo Specialty Diagnoses / Procedures Referred By Marti dangelo Referred To Contact Orthopaedics Diagnoses Psoriatic arthritis 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 Abnormal x-ray Dry eyes Family history of discoid lupus History of Raynaud's syndrome Multiple chemical sensitivity syndrome, sequela Raynaud's disease without gangrene Dry mouth Xerostomia Rathke's cleft cyst Keratoconjunctivitis sicca Bilateral calcaneal spurs Degenerative cervical disc Enchondroma of bone of hand, right Lumbar degenerative disc disease Osteoarthritis of facet joint of cervical spine Osteochondral defect Primary osteoarthritis of both feet Primary osteoarthritis of both knees Primary osteoarthritis of right shoulder Synovial cyst of hand Lichen planus Rash Normochromic normocytic anemia CRP elevated Ketonuria alf current use of non-steroidal anti-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 (NSAID) alf current use of systemic steroids Interstitial lung disease Vitamin D deficiency StainKarlo roberts Jr., DO [address] [place] [address] Shauna Calderon MD [address] [place] [address] Referral ID Status Reason Start Date Expiration Date V isits Requested Visits Authorized [id number] New Request 01/31/2022 02/25/2023 1 1 Reason Comments Other Anemia Reason Comments Radiology MRI Specialty Diagnoses / Procedures Referred By Contac t Referred To Contact Diagnoses Rathke's cleft cyst Procedures MRI PITUITARY WITH AND WITHOUT CONTRAST [facility] MRI BRAIN ALFIEO Sachi Nuñez, LI [address] [place] [address] Referral ID Status Reason Start Date Expiration Date V isits Requested Visits Authorized [id number] New Request 08/08/2021 09/02/2022 1 1 Specialty Diagnoses / Procedures Referred By Contact Referred To Contact Cardiovascular Medicine Diagnoses Palpitations Dizziness and giddiness Orthostatic hypotension Secondary pulmonary arterial hypertension Dyspnea on exertion Procedures ECG, TREADMILL STRESS (NON-IMAGING) GA CV STRS TST XERS&/OR RX CONT ECG W/SI&R Mitali Ibarra MD [address] [place] [address] [facility] Cardiology [facility] [address] [place] [address] Referral ID Status Reason Start Date Expiration Date Visits Re quested Visits Authorized [id number] Closed 05/21/2022 06/15/2023 1 1 Reason Comments Labs Only Reason Comments Follow-up Blood in Urine Urinary Incontinence Reason Comments Colonoscopy colitis Reason Comments Pain Reason Onset Date Comments Medication Refill 06/03/2023 Judith Boss CNP - 10/16/2018 3:30 PM EDT Consult Notes (unrecognized section and content) ANESTHESIA PREPROCEDURE EVALUATION Physical Exam Airway Mallampati: I Neck ROM: full Mouth opening: >3 FB Cardiovascular Rhythm: regular Pulmonary Breath sounds are clear to auscultation Neurological Mental Status: alert Dental Dental exam is normal and age appropriate Review of Systems / Medical History - No history of anesthetic complications Neurological / Psychological Positive: depression, anxiety Cardiovascular Comment: PFO Gastrointestinal / Hepatic / Renal Positive: GERD Endocrine / Musculoskeletal Comment: Pituitary tumor Other Negative: smoker (previous smoker) and substance abuse documented in this encounter Pre-Procedure Instructions - Georgia Mirza RN - 10/16/2018 4:29 PM EDTOp Note - Gonzalez Martinez Jr., - 10/29/2018 9:45 AM EDTQuick Note - Tierney Hsieh RN - 10/29/2018 8:57 AM EDT Miscellaneous Notes (unrecog nized section and content) Preoperative Medication Instructions In preparation for surgery please continue all of your current medications with the following changes: Shravan Davenport Home Medication Instructions Prior to Surgery FRANCISCO:[id number] Printed on:10/16/18 940 Medication Information Take last dose on Take the morning of surgery Comment(s) bromocriptine (PARLODEL) 2.5 mg tablet buPROPion (WELLBUTRIN XL) 300 MG 24 hr tablet Take 300 mg by mouth daily estradiol (ESTRACE) 2 MG tablet Take 2 mg by mouth . omeprazole (PRILOSEC) 40 MG capsule Take 40 mg by mouth . STOP ( medications that contain aspirin, such as Karla Stone[place], Pepto-Bismol, Anacin), antiinflammatory medications such as Advil, Motrin, Ibuprofen, Naproxen, Aleve, Karla Stone[place], Pepto-Bismol, Anacin, Diclofenac, Voltaren, Daypro, Etodolac, Ketoprofen, Piroxicam, Relafen, Nabumetone, etc. Also discontinue Vitamin C, Vitamin E, [place]-3 Fatty Acid, Fish Oil or Lovaza, and all herbal medications DIRECTED BY SURGEON. Tylenol (acetaminophen) is acceptable(unless you have an allergy to this medication ), but be careful to follow the label directions and do not use with other pain medications. On the morning of surgery, with as little water as possible, ONLY take the medications listed above in the column Take the morning of surgery. If you are using Eye Drops or Inhalers, please bring them to the hospital. Patient Instructions for [facility]: Prior to surgery: Surgeon's office will contact you with the scheduled time of your surgery. You may use the [employer] [place] [employer] parking available at the Main Entrance One family member may accompany you back into the Pre-Op Area. Do not eat or drink anything after midnight or as directed, including gum, mints, and cough drops. No smoking after midnight. No alcohol 24 hours prior to your surgery. Please take any medications you have been instructed to take the morning of your surgery with small sips of water. Please be sure to wear comfortable, appropriate clothing. Please remove all jewelry and piercing's, including wedding rings. Leave all valuable items at home. Shower using anti-bacterial soap or as advised by your Surgeon's office Do not apply any makeup or lotions. Remove all nail marshallese for surgeries involving extremities. Please remember to bring both your insurance card and a photo ID with you on the day of surgery. After your surgery: If you are having outpatient surgery - you must have a licensed water taxi driver to take you home. The expectation is that this water taxi driver will remain at the hospital for the duration of your procedure. You are advised to have a family member with you for at least 24 hours after being under Anesthesia. If you have sleep apnea and have a CPAP/BIPAP device, please bring it with you the day of surgery. documented in this encounter Is Gonzalez Martinez, ENT dictating postoperative note on patient Shravan Davenport [facility] [id number] Date of 1975 Date of operation 10/29/[address] Gonzalez Martinez Chief Green Officer none Preoperative diagnosis: Chronic tonsillitis Postoperative diagnosis same Procedure tonsillectomy Anesthesia General endotracheal ASA is 1 Counts correct Complications none Estimated blood loss 0 Disposition patient tolerated procedure well and is stable Findings 2+ tonsils bilaterally that are highly cryptic Clinical note: Shravan is a pleasant 43-year-old female presenting to my office with a history of recurrent throat infections. Physical examination in the office reveals 2+ tonsils bilaterally that are highly cryptic. Patient has had numerous tonsil infections with multiple courses of antibiotics. Because these findings and refractory nature maximal medical therapy we felt she benefit greatly from having her tonsils removed. The risk benefits complications and alternatives to this procedure were discussed with the patient in detail. She appear to understand this completely wished to proceed with the operation. Operative note: Shravan Physical examination in the office reveals 3+ tonsils bilaterally that are highly cryptic. There is significant tonsil list throughout. Because these findings and the patient's refractory nature to maximal medical therapy we felt that they would benefit greatly from having her tonsils removed. The risk benefits complications and alternatives to this procedure were discussed with the patient in detail. They appear to understand this completely and wish to proceed with the operation. Procedure note: was brought to the operative suite at [facility] over 7. Timeout was performed to confirm. The patient was placed supine and the head of the bed was rotated 90 degrees to the patient's right. The patient was sterilely prepped and draped in usual fashion. A shoulder roll and head turban were placed. A Awilda Fred mouthgag was inserted in patient's mouth and suspended from the Langford stand. The uvula was visualized and found to be non-bifid and palpation of the palate revealed no submucosal cleft. The right tonsil was visualized and then grasped using a curved Allis retractor and removed using Bovie cautery on setting of 25 W. A sterile tonsil sponge soaked in bismuth subgallate was placed in the tonsillar fossa to assist with hemostasis. Attention was then turned to the left tonsil was removed in the exact same fashion without significant deviation from procedure. Again the tonsillar fossa was packed. After adequate amount of time had elapsed the tonsillar fossa packs were removed and the tonsillar fossas copiously irrigated with chilled sterile saline. Any punctate bleeding was stopped using judicious application of the suction Bovie on a setting of 25 W. Hemostasis was excellent. The patient was taken off suspension [place] Fred mouthgag was removed from patient's mouth and a second look was taken using a tongue blade. Again hemostasis was excellent. All instrumentation was removed from patient's field. Care the patient was returned to anesthesia. Patient was awoken extubated and transferred to postanesthesia care unit in stable condition having tolerated procedure well. The patient's family was given written instructions for follow-up as well as follow-up appointment date and time current post procedure instructions and prescriptions. End dictation Dictated not read Patient on continuous pulse ox, 97% on RA, friend at [facility] supportive. HR MANAGER here to see patient at [facility] Versed given pre op IV for anxiety, patient tearful, support offered. documented in this encounter Associated Problem(s): Fatigue Her fatigue could be multifactorial. She does not exercise regularly anymore. However, I would strongly recommend a sleep study as untreated sleep apnea could be causing several of her symptoms including palpitations. I will leave that to primary care. Associated Problem(s): Tobacco Abuse The patient was warned about the adverse consequences of persistent tobacco abuse. Associated Problem(s): Hyperlipidemia Patient has an extremely worrisome family history. I ordered a lipid profile. I would like her to be fasting for this study. Those results will be forthcoming. I would have a very low threshold for starting her on statin therapy. Associated Problem(s): Palpitations I have ordered a 30-day event recorder to assess for symptom rhythm correlation. She was started on beta-shaheed by primary care. Associated Problem(s): Intermittent chest pain The patient has a worrisome family history of heart disease. She is extremely concerned about the symptoms. I have ordered a repeat stress echocardiogram. If there is no demonstrable ischemia, I would continue to treat her with reassurance and risk modification. documented in this encounter Gonzalez Martinez Jr., DO - 10/29/2018 7:55 AM Gonzalez Villegas Jr., DO - 10/09/2018 12:58 PM Ricky Cantu MD - 03/17/2019 11:10 AM EDT H&P Notes (unrecognized sect ion and content) INTERVAL HISTORY AND PHYSICAL Patient Name: Shravan Davenport Admit Date: [id number] MR #: [id number] : 1975 The H&P has been reviewed and the patient has been examined. I concur with the findings of the H&P. There are no significant changes. It is appropriate to proceed with the planned procedure. Gonzalez Martinez Jr., DO 10/29/2018 7:55 AM Subjective Patient ID: Shravan Davenport is a 43 y.o. female. Patient is here for follow up of tonsillitis, to update H& P for surgery. Multiple history of strep positive tests, hospitalizations for tonsillitis and peritonsillar abscess The following portions of the patient's history were reviewed and updated as appropriate: allergies, current medications, past family history, past medical history, past social history, past surgical history and problem list. Review of Systems Constitutional: Negative for chills and diaphoresis. HENT: Positive for sore throat. Negative for ear discharge and ear pain. Eyes: Negative for discharge and redness. Respiratory: Negative for apnea and cough. Cardiovascular: Negative for chest pain and palpitations. Musculoskeletal: Negative for neck pain and neck stiffness. Skin: Negative for color change and pallor. Allergic/Immunologic: Negative for immunocompromised state. Neurological: Negative for facial asymmetry and numbness. Hematological: Does not bruise/bleed easily. Psychiatric/Behavioral: Negative for agitation and confusion. Objective Physical Exam Constitutional: She appears well-developed and well-nourished. She does not have a sickly appearance. She does not appear ill. HENT: Head: Normocephalic and atraumatic. Right Ear: No drainage or swelling. Left Ear: No drainage or swelling. Nose: No mucosal edema or sinus tenderness. Mouth/Throat: Uvula is midline, oropharynx is clear and moist and mucous membranes are normal. Normal dentition. No oropharyngeal exudate or posterior oropharyngeal erythema. 2+ tonsils bilaterally that are highly cryptic Eyes: Pupils are equal, round, and reactive to light. Conjunctivae, EOM and lids are normal. Left eye exhibits no chemosis and no discharge. Neck: Normal range of motion. Neck supple. No edema and normal range of motion present. No thyroid mass and no thyromegaly present. Pulmonary/Chest: No stridor. No Known Allergies Social History Tobacco Use Smoking Status Former Smoker Years: 10.00 Types: Cigarettes Last attempt to quit: 08/18/2017 Years since quittin.1 Smokeless Tobacco Never Used Social History Substance and Sexual Activity Alcohol Use Yes Alcohol/week: 0.0 oz Comment: Occasional Social History Substance and Sexual Activity Drug Use No Past Surgical History: Procedure Laterality Date breast augmentation fallopian tube removal Right HYSTERECTOMY 2017 OOPHORECTOMY Right WRIST SURGERY Left hardware Past Medical History: Diagnosis Date Anxiety Depression IBS (irritable bowel syndrome) with constipation Assessment/Plan: Assessment Diagnoses and all orders for this visit: Chronic tonsillitis I have discussed continued medical management vs tonsillectomy possible adenoidectomy with the patient. The risks, benefits, and alternatives to this procedure have been discussed including but not limited to velopharyngeal reflux, change in sense of taste, bleeding, infection, scar formation, dehydration, etc. They voiced understanding and wishes to proceed with scheduling. I will have them sign the appropriate consent forms and see them back 3 weeks post op. documented in this encounter INTERVAL HISTORY AND PHYSICAL Patient Name: Shravan Davenport Admit Date: [id number] MR #: [id number] : 1975 The H&P has been reviewed and the patient has been examined. I concur with the findings of the H&P. There are no significant changes. It is appropriate to proceed with the planned procedure. Ricky Scruggs MD 03/17/2019 11:10 AM documented in this encounter Chel George PA-C - 11/06/2018 7:36 AM Manoj Coleman RN - 11/06/2018 7:14 AM EDT ED Notes (unrecognized secti on and content) ED PROVIDER NOTE [facility] NAME: Shravan Davenport AGE: 43 y.o. : 1975 VISIT DATE: 11/06/2018 CSN: [id number] PCP: Physician No Chief Complaint Patient presents with Sore Throat Patient presents to the emergency department 6 days post tonsillectomy done by Dr. Martinez. Patient explains that she was given liquid Vicodin prescribed every 6 hours but states she was in too much pain and had to take it every 4 hours. Patient states that she is out of pain medication. Has contacted Dr. Martinez's office and when reviewing notes, he asked that the patient alternate Tylenol and Motrin every 4 hours to control pain. Patient states that this is not enough for her pain. Denies fever and chills. She denies any bleeding at this time. Denies bleeding. States it is painful to swallow but has been swallowing solids. Denies any other possible complications. She does have a follow-up with Dr. Martinez on November 20. Past Medical History: Diagnosis Date Anxiety Depression IBS (irritable bowel syndrome) with constipation Past Surgical History: Procedure Laterality Date breast augmentation fallopian tube removal Right HYSTERECTOMY 2017 OOPHORECTOMY Right TONSILLECTOMY Bilateral 10/29/2018 Procedure: TONSILLECTOMY; Surgeon: Gonzalez Martinez Jr., DO; Location: Main OR; Service: Otolaryngology WRIST SURGERY Left hardware Family History Problem Relation Age of Onset Heart disease Father Heart attack Father 46 bypass Coronary artery disease Father Stroke Father Diabetes Father Neuropathy Father Social History Socioeconomic History Marital status: Spouse name: Not on file Number of children: Not on file Years of education: Not on file Highest education level: Not on file Social Needs Financial resource strain: Not on file Food insecurity - worry: Not on file Food insecurity - inability: Not on file Transportation needs - medical: Not on file Transportation needs - non-medical: Not on file Occupational History Not on file Tobacco Use Smoking status: Former Smoker Years: 10.00 Types: Cigarettes Last attempt to quit: 08/18/2017 Years since quittin.2 Smokeless tobacco: Never Used Substance and Sexual Activity Alcohol use: Yes Alcohol/week: 0.0 oz Comment: Occasional Drug use: No Sexual activity: Not on file Other Topics Concern Not on file Social History Narrative Not on file Previous Medications Medication Sig bromocriptine (PARLODEL) 2.5 mg tablet buPROPion (WELLBUTRIN XL) 300 MG 24 hr tablet Take 300 mg by mouth daily estradiol (ESTRACE) 2 MG tablet Take 2 mg by mouth . HYDROcodone-acetaminophen (NORCO) 5-325 mg per tablet Take 1 (one) tablet by mouth every 6 (six) hours as needed for pain (Days supply per fill: 5) Post operative pain management . omeprazole (PRILOSEC) 40 MG capsule Take 40 mg by mouth . No Known Allergies Review of Systems Constitutional: Negative for activity change, chills, fatigue and fever. HENT: Positive for sore throat. Negative for congestion, ear pain, hearing loss, postnasal drip, rhinorrhea and trouble swallowing. Eyes: Negative for photophobia, pain, redness and visual disturbance. Respiratory: Negative for cough, chest tightness, shortness of breath and wheezing. Cardiovascular: Negative for chest pain, palpitations and leg swelling. Gastrointestinal: Negative for abdominal pain, constipation, diarrhea, nausea and vomiting. Genitourinary: Negative for difficulty urinating, dysuria, hematuria and urgency. Musculoskeletal: Negative for arthralgias, back pain, myalgias, neck pain and neck stiffness. Skin: Negative for color change and rash. Neurological: Negative for dizziness, speech difficulty, weakness, numbness and headaches. Psychiatric/Behavioral: Negative for agitation and suicidal ideas. The patient is not nervous/anxious. Patient Vitals for the past 24 hrs: BP Temp Temp src Pulse Resp SpO2 Height Weight 11/06/18 0724 5' 8 72.6 kg (160 lb) 11/06/18 0716 114/76 98.4 F (36.9 C) Oral 68 16 96 % Physical Exam Constitutional: She is oriented to person, place, and time. She appears well-developed and well-nourished. HENT: Head: Normocephalic and atraumatic. Mouth/Throat: Uvula is midline, oropharynx is clear and moist and mucous membranes are normal. No oral lesions. No uvula swelling. No oropharyngeal exudate. No tonsillar exudate. Posterior throat reveals white/yellow patches bilaterally which appear to be healing appropriately without swelling or pus noted Airway patent Eyes: Conjunctivae and EOM are normal. Pupils are equal, round, and reactive to light. Neck: Normal range of motion. Neck supple. Cardiovascular: Normal rate, regular rhythm, normal heart sounds and intact distal pulses. Pulmonary/Chest: Effort normal and breath sounds normal. Abdominal: Soft. Bowel sounds are normal. She exhibits no distension. There is no tenderness. Musculoskeletal: Normal range of motion. She exhibits no edema, tenderness or deformity. Lymphadenopathy: She has no cervical adenopathy. Neurological: She is alert and oriented to person, place, and time. Skin: Skin is warm and dry. Capillary refill takes less than 2 seconds. No rash noted. Psychiatric: She has a normal mood and affect. Nursing note and vitals reviewed. Laboratory & Radiographic Imaging (if done): No results found for this visit on 11/06/18. No orders to display Procedures MDM Number of Diagnoses or Management Options Diagnosis management comments: Patient was given viscous lidocaine here. Instructed not to eat for an hour after using this. Will be sent home with viscous lidocaine as well. Patient is about a week out from surgery. She is afebrile at this time he denies any fevers at home. Vitals within normal limits. She is swallowing solids. When revealing Dr. Martinez's notes, he thought it was appropriate that the patient take Tylenol and Motrin at this time. I do agree with this and asked the same with the patient. She is to contact our office for a quicker follow-up if she continues to have excessive pain. Risk of Complications, Morbidity, and/or Mortality Presenting problems: low Diagnostic procedures: minimal Management options: minimal Patient Progress Patient progress: stable . . Clinical Impression: No diagnosis found. ED Disposition None Follow-up Information Follow-up information has not been specified. Contact information for after-discharge care Follow-up information has not been specified. Chel George PA-C 11/06/18 0744 Pt states had tonsils removed 8 days ago. Having pain to surgical site. More pain with swallowing. documented in this encounter Karen Jeffery RN - 03/17/2019 12:47 PM Lisa Nogueira RN - 03/17/2019 10:41 AM EDT Nursing Notes (unrecognized section and content) Instructions reviewed with pt. - pt. Wanting to leave - denies c/o. Andrea is taking her home today documented in this encounter Rekha Gomez FLAMER AFTER LASTING - 01/22/2019 1:30 PM EDT Procedure Notes (unrecognize d section and content) Procedure(s): FLAMER AFTER LASTING MODIFIED BARIUM SWALLOW Pre-Procedure Diagnose(s): Dysphagia, unspecified type Post-Procedure Diagnose(s): Dysphagia, unspecified type [facility] Speech Language Pathology Modified Barium Swallow Study Procedure Notes - Final Patient: Shravan Davenport Date of : 1975 General Information: General Information Ordering Physician: Dr. Roberson Radiologist: Dr. Arthur Date of Onset: 10/22/18 Date of Order: 01/12/19 Date of Evaluation: 01/22/19 Type of Study: Initial MBS Mental Status: Alert, Oriented, Cooperative Oral Status: Permanent teeth Respiratory Status: Room air Feeding: Self View: Lateral Diet Prior to this Study: Regular, Thin liquid Textures Used: Textures used: Thin cup, [place] cup, Honey spoon, Pureed spoon, Mechanical soft Oral Phase: Oral Preparation/Oral Phase Oral Phase: Within Functional Limits Pharyngeal Phase: Pharyngeal Phase: Within Functional Limits Esophageal Phase: Esophageal Phase Esophageal Phase: WFL Penetration: Penetration Present?: No Aspiration: Aspiration Present?: No Recommendation: Recommendations PO Recommendations: Regular, Thin liquid Strategies: Alternate solid and liquid Posture: Sit 90 degrees, Up 30 minutes after meal Food Presentation: Average bites Liquid Presentation: Average drinks Medication Presentation: Whole with thins Amount of Supervision: Not required Treatment Techniques: (consider FEES and esophagram) Further Recommendations: Perform FEES Suggested Consults: ENT: Evaluate laryngeal function, GI: Evaluate esphoageal function, Neurologist(follow up with ENT and neuroas scheduled, consider further GI assessment due to complaint of globus) Factors for Returning to Prior Level of Function Body Structure and Function: Other (comment) Explain Impairments: complaining of nasal regurgitation of food and liquid, changes in vocal resonance since tonsillectomy Activities and Participation: Swallowing limitation Explain Limitations: complaint of globus sensation, thickness in throat with effect on breath support Environmental Factors: Home situation Explain Environmental Factors: independent in ADL's Personal Factors: Awareness of own capacity and performance Explain Personal Factors: appears to have good awareness of currrent medical status and recent procedures/medical appts Skilled Therapy Needs: Are Skilled Therapy Services Needed After Discharge: (consider FEES for further visualization of pharyngeal/laryngeal region) 43 yr old female presenting in referral from Dr. Roberson for complaint of ongoing globus sensation, feeling of thickness in pharyngeal region, regurgitation into nasal cavity (phlegm/emesis with food particles visible), resonance changes to vocal quality. Pt is s/p tonsillectomy in October 2017 with pt reported diagnosis of trigeminal neuralgia per dentist. Recent medical history significant for diagnosis of pituitary microadenoma (benign neoplasm of pituitary gland and craniopharyngeal duct- pouch). MBS revealing no liss aspiration, penetration, pharyngeal constrictor deficit, or diverticuli to explain globus sensation. Oropharyngeal swallow within functional limits with all consistencies trialed. Would consider further assessment via fiberoptic endoscopic evaluation of swallow (FEES) with speech therapy to visualize pharyngeal/laryngeal integrity, radiologist report recommendations included consideration for conventional double-contrast barium esophagram is recommended to better assess the possibility of reflux . This note stands as the current Discharge Summary upon patient discharge from the hospital or completion of Speech Pathology Plan of Care documented in this encounter Care Teams (unrecognized sec tion and content) Assembler [employer] Relationship Specialty Start Date End Date Eun Bar MACHINE ASSEMBLER [address] [facility] [address] [place] [address] PCP - General Nurse Practitioner 07/04/20 Assembler [employer] Relationship Specialty Start Date End Date Eun Bar MACHINE ASSEMBLER [address] [facility] [address] [place] [address] PCP - General Nurse Practitioner 07/04/20 Assembler [employer]urb[employer] Relationship Specialty Start Date End Date Eun Bar MACHINE ASSEMBLER [address] [facility] [address] [place] [address] PCP - General Nurse Practitioner 07/04/20 Mitali Liao MD [address] [place] [address] Consulting Physician Orthopedic Surgery 02/28/21 Nohemi Flores MD [address] [place] [address] Rheumatology 02/28/21 Mark Anthony Monroe III, DO [address] [place] [address] Consulting Physician Vascular Surgery 03/06/21 Leonardo Roberson MD [address] [address] Consulting Physician Neurology 03/06/21 Assembler [employer] Relationship Specialty Start Date End Date Eun Bar, MACHINE ASSEMBLER [address] [facility] [address] [place] [address] PCP - General Nurse Practitioner 07/04/20 Mitali Liao MD [address] [place] [address] Consulting Physician Orthopedic Surgery 02/28/21 Nohemi Flores MD [address] [place] [address] Rheumatology 02/28/21 Mark Anthony Monroe III, DO [address] [place] [address] Consulting Physician Vascular Surgery 03/06/21 Leonardo Roberson MD [address] [address] Consulting Physician Neurology 03/06/21 Assembler [employer] Relationship Specialty Start Date End Date Eun Bar, MACHINE ASSEMBLER [address] [facility] [address] [place] [address] PCP - General Nurse Practitioner 07/04/20 Mitali Liao MD [address] [place] [address] Consulting Physician Orthopedic Surgery 02/28/21 Nohemi Flores MD [address] [place] [address] Rheumatology 02/28/21 Mark Anthony Monroe III, DO [address] [place] [address] Consulting Physician Vascular Surgery 03/06/21 Leonardo Roberson MD [address] [address] Consulting Physician Neurology 03/06/21 Assembler [employer] Relationship Specialty Start Date End Date Karlo Doherty Jr. [address] [place] [id number] PCP - General Rheumatology 07/21/21 Shawn Pickens [facility] [address] [place] [address] PCP - endocrinology Endocrinology 07/21/21 Leonardo Roberson MD [address] [facility] [address] [address] PCP - resident Neurology 07/21/21 Abigail Perez, DO [address] [place] [address] Primary Staff Physician Cardiology 07/21/21 Assembler [employer] Relationship Specialty Start Date End Date Karlo Doherty Jr. [address] [place] [address] PCP - General Rheumatology 07/21/21 Shawn Pickens [address] [facility] 2nd [place] [address] PCP - endocrinology Endocrinology 07/21/21 Leonardo Roberson MD [address] [address] PCP - resident Neurology 07/21/21 Abigail Perez, DO [address] [place], [place] [id number] Primary Staff Physician Cardiology 07/21/21 Assembler [employer] Relationship Specialty Start Date End Date Dipika Eun, CLAUDIO PCP - General Certified Nurse Practitioner 10/28/20 Leonardo Roberson MD [address] [place] [address] Neurologist Neurology 03/16/19 Stefan Graham MD Sprinkler Inspector AUTOMOTIVE ELECTRICAL FITTER 03/16/19 Shawn Pickens MD [address] 5[address] [place] [address] Server Assistant Endocrinology, Diabetes & Metabolism 10/28/20 Karlo Doherty Jr., DO [address] [place] [address] Environmental Health Aide Rheumatology 08/08/21 Assembler [employer] Relationship Specialty Start Date End Date Karlo Doherty Jr. [address] [place] [address] PCP - General Rheumatology 07/21/21 Shawn Pickens [address] [phone] PCP - endocrinology Endocrinology 07/21/21 Leonardo Roberson MD [address] [address] PCP - resident Neurology 07/21/21 Abigail Perez, [address] [place] [address] Primary Staff Physician Cardiology 07/21/21 Assembler [employer] Relationship Specialty Start Date End Date Karlo Doherty Jr. [address] [place] [id number] PCP - General Rheumatology 07/21/21 Shawn Pickens [address] [phone] PCP - endocrinology Endocrinology 07/21/21 Leonardo Roberson MD [address] [address] PCP - resident Neurology 07/21/21 Abigail Perez, [address] [place] [address] Primary Staff Physician Cardiology 07/21/21 Assembler [employer]urb[employer] Relationship Specialty Start Date End Date Eun Bar CLAUDIO PCP - General Certified Nurse Practitioner 10/28/20 Leonardo Roberson MD [address] [place] [address] Neurologist Neurology 03/16/19 Stefan Graham MD Sprinkler Inspector AUTOMOTIVE ELECTRICAL FITTER 03/16/19 Shawn Pickens MD [address] [place] [address] Server Assistant Endocrinology, Diabetes & Metabolism 10/28/20 Karlo Doherty Jr. DO [address] [place] [address] Environmental Health Aide Rheumatology 08/08/21 Assembler [employer] Relationship Specialty Start Date End Date Karlo Doherty Jr. [address] [place] [address] PCP - General Rheumatology 07/21/21 Shawn Pickens [address] [place] [address] PCP - endocrinology Endocrinology 07/21/21 Leonardo Roberson MD [address] [place] [address] PCP - resident Neurology 07/21/21 Abigail Perez, DO [address] [place] [address] Primary Staff Physician Cardiology 07/21/21 Assembler [employer] Relationship Specialty Start Date End Date Dipika, EunCLAUDIO PCP - General Certified Nurse Practitioner 10/28/20 Leonardo Roberson MD [address] [place] [address] Neurologist Neurology 03/16/19 Stefan Graham MD Sprinkler Inspector AUTOMOTIVE ELECTRICAL FITTER 03/16/19 Shawn Pickens MD [address] [place] [address] Server Assistant Endocrinology, Diabetes & Metabolism 10/28/20 Karlo Doherty Jr., DO [address] [place] [address] Environmental Health Aide Rheumatology 08/08/21 Assembler [employer] Relationship Specialty Start Date End Date Eun Bar CNP PCP - General Certified Nurse Practitioner 10/28/20 Leonardo Roberson MD [address] [place] [address] Neurologist Neurology 03/16/19 Stefan Graham MD Sprinkler Inspector AUTOMOTIVE ELECTRICAL FITTER 03/16/19 Shawn Pickens MD [address] [place] [address] Server Assistant Endocrinology, Diabetes & Metabolism 10/28/20 Karlo Doherty Jr., DO [address] [place] [address] Environmental Health Aide Rheumatology 08/08/21 Assembler [employer] Relationship Specialty Start Date End Date Eun Bar CNP PCP - General Certified Nurse Practitioner 10/28/20 Leonardo Roberson MD [address] [place] [address] Neurologist Neurology 03/16/19 Stefan Graham MD Sprinkler Inspector AUTOMOTIVE ELECTRICAL FITTER 03/16/19 Shawn Pickens MD [address] [place] [address] Server Assistant Endocrinology, Diabetes & Metabolism 10/28/20 Karlo Doherty Jr., DO [address] [place] [address] Environmental Health Aide Rheumatology 08/08/21 Assembler [employer] Relationship Specialty Start Date End Date [facility] Shelby Thomas, DO [address] [place] [address] PCP - General Rheumatology 09/21/21 Mitali Liao MD [address] [place] [address] Consulting Physician Orthopedic Surgery 02/28/21 Nohemi Flores MD [address] [place] [address] Rheumatology 02/28/21 Mark Anthony Monroe III, DO [address] [place] [address] Consulting Physician Vascular Surgery 03/06/21 Leonardo Roberson MD [address] Fausto [address] [place] [address] Consulting Physician Neurology 03/06/21 Assembler [employer] Relationship Specialty Start Date End Date ChasKarlo Jr., DO [address] [place] [address] PCP - General Rheumatology 09/21/21 Mitali Liao MD [address] [place] [address] Consulting Physician Orthopedic Surgery 02/28/21 Nohemi Flores MD [address] [place] [address] Rheumatology 02/28/21 Mark Anthony Monroe III, DO [address] [place] [address] Consulting Physician Vascular Surgery 03/06/21 Leonardo Roberson MD [address] [address] Consulting Physician Neurology 03/06/21 Assembler [employer] Relationship Specialty Start Date End Date Eun Bar MACHINE ASSEMBLER PCP - General Certified Nurse Practitioner 10/28/20 Leonardo Roberson MD [address] [place] [address] Neurologist Neurology 03/16/19 Stefan Graham MD Sprinkler Inspector Obstetrics & Gynecology 03/16/19 Shawn Pickens MD [address] [place] [address] Server Assistant Endocrinology, Diabetes & Metabolism 10/28/20 Karlo Doherty Jr., DO [address] [place] [address] Environmental Health Aide Rheumatology 08/08/21 Assembler [employer] Relationship Specialty Start Date End Date Eun Bar CNP PCP - General Certified Nurse Practitioner 10/28/20 Leonardo Roberson MD [address] [place] [address] Neurologist Neurology 03/16/19 Stefan Graham MD Sprinkler Inspector Obstetrics & Gynecology 03/16/19 Shawn Pickens MD [address] [place] [address] Server Assistant Endocrinology, Diabetes & Metabolism 10/28/20 Karlo Doherty Jr., DO [address] [place] [address] Environmental Health Aide Rheumatology 08/08/21 Assembler [employer] Relationship Specialty Start Date End Date Karlo Doherty Jr., DO [address] [place] [address] PCP - General Rheumatology 09/21/21 Mitali Liao MD [address] [place] [address] Consulting Physician Orthopedic Surgery 02/28/21 Nohemi Flores MD [address] [place] [address] Rheumatology 02/28/21 Mark Anthony Monroe III, DO [address] [place] [address] Consulting Physician Vascular Surgery 03/06/21 Leonardo Roberson MD [address] [address] Consulting Physician Neurology 03/06/21 Assembler [employer] Relationship Specialty Start Date End Date Eun Bar, CLAUDIO PCP - General Certified Nurse Practitioner 10/28/20 Leonardo Roberson MD [address] [place] [address] Neurologist Neurology 03/16/19 Stefan Graham MD Sprinkler Inspector Obstetrics & Gynecology 03/16/19 Shawn Pickens MD [address] [place] [address] Server Assistant Endocrinology, Diabetes & Metabolism 10/28/20 Karlo Doherty Jr., DO [address] [place] [phone] Environmental Health Aide Rheumatology 08/08/21 Assembler [employer] Turbine Relationship Specialty Start Date End Date Eun Bar CNP PCP - General Certified Nurse Practitioner 10/28/20 Leonardo Roberson MD [address] [place] [address] Neurologist Neurology 03/16/19 Stefan Graham MD Sprinkler Inspector Obstetrics & Gynecology 03/16/19 Shawn Pickens MD [address] [place] [address] Server Assistant Endocrinology, Diabetes & Metabolism 10/28/20 Karlo Doherty Jr., DO [address] [place] [address] Environmental Health Aide Rheumatology 08/08/21 Assembler [employer] Turbine Relationship Specialty Start Date End Date Eun Bar CNP PCP - General Certified Nurse Practitioner 10/28/20 Leonardo Roberson MD [address] [place] [address] Neurologist Neurology 03/16/19 Stefan Graham MD Sprinkler Inspector Obstetrics & Gynecology 03/16/19 Shawn Pickens MD [address] [place] [address] Server Assistant Endocrinology, Diabetes & Metabolism 10/28/20 Karlo Doherty Jr., DO [address] [place] [address] Environmental Health Aide Rheumatology 08/08/21 Assembler [employer]urbine Relationship Specialty Start Date End Date Eun Bar CNP PCP - General Certified Nurse Practitioner 10/28/20 Leonardo Roberson MD [address] [place] [address] Neurologist Neurology 03/16/19 Stefan Graham MD Sprinkler Inspector Obstetrics & Gynecology 03/16/19 Shawn Pickens MD [address] [place] [address] Server Assistant Endocrinology, Diabetes & Metabolism 10/28/20 Karlo Doherty Jr., DO [address] [place] [address] Environmental Health Aide Rheumatology 08/08/21 Assembler [employer] Turb[employer] Relationship Specialty Start Date End Date Eun Bar CNP PCP - General Certified Nurse Practitioner 10/28/20 Leonardo Roberson MD [address] [place] [address] Neurologist Neurology 03/16/19 Stefan Graham MD Sprinkler Inspector Obstetrics & Gynecology 03/16/19 Shawn Pickens MD [address] [place] [address] Server Assistant Endocrinology, Diabetes & Metabolism 10/28/20 Karlo Doherty Jr., DO [address] [place] [address] Environmental Health Aide Rheumatology 08/08/21 Assembler [employer] Turbine Relationship Specialty Start Date End Date Eun Bar CNP PCP - General Certified Nurse Practitioner 10/28/20 Leonardo oRberson MD [address] [place] [address] Neurologist Neurology 03/16/19 Stefan Graham MD Sprinkler Inspector Obstetrics & Gynecology 03/16/19 Shawn Pickens MD [address] [place] [address] Server Assistant Endocrinology, Diabetes & Metabolism 10/28/20 [facility] Karlo Lord, DO [address] [place] [address] Environmental Health Aide Rheumatology 08/08/21 Assembler Steam [employer] Turbine Relationship Specialty Start Date End Date No, Physician [facility] PCP - General 10/21/22 Mitali Liao MD [address] [place] [phone] Consulting Physician Orthopedic Surgery 02/28/21 Nohemi Flores MD [address] [place] [address] Rheumatology 02/28/21 Mark Anthony Monroe III, DO [address] [place] [address] Consulting Physician Vascular Surgery 03/06/21 Leonardo Roberson MD [address] [address] Consulting Physician Neurology 03/06/21 Assembler [employer]urbine Relationship Specialty Start Date End Date Eun Bar CNP [address] [place] [address] PCP - General Certified Nurse Practitioner 10/28/20 Leonardo Roberson MD [address] [place] [address] Neurologist Neurology 03/16/19 Stefan Graham MD [address] [place] [address] Sprinkler Inspector Obstetrics & Gynecology 03/16/19 Shawn Pickens MD [address] [place] [address] Server Assistant Endocrinology, Diabetes & Metabolism 10/28/20 [facility] , Karlo Lord [address] [place] [phone] Environmental Health Aide Rheumatology 08/08/21 Assembler [employer] Turbine Relationship Specialty Start Date End Date No, Physician [facility] PCP - General 10/21/22 Mitali Liao MD [address] [place] [address] Consulting Physician Orthopedic Surgery 02/28/21 Nohemi Flores MD [address] [place] [address] Rheumatology 02/28/21 Mark Anthony Monroe III, [address] [place] [phone] Consulting Physician Vascular Surgery 03/06/21 Leonardo Roberson MD [address] [address] Consulting Physician Neurology 03/06/21 Assembler [employer]urbine Relationship Specialty Start Date End Date No, Physician [facility] PCP - General 10/21/22 Mitali Liao MD [address] [place] [address] Consulting Physician Orthopedic Surgery 02/28/21 Nohemi Flores MD [address] [place] [address] Rheumatology 02/28/21 Mark Anthony Monroe III, DO [address] [place] [address] Consulting Physician Vascular Surgery 03/06/21 Leonardo Roberson MD Skyler Truong [address] [address] Consulting Physician Neurology 03/06/21 Source Comments (unrecognize d section and content) In the event this informatio n is protected by the Federal Confidentiality of Alcohol and Drug Abuse Patient Records regulations: The Federal rules restrict any use of the information to criminally investigate or prosecute any alcohol or drug abuse patient.[facility] the event this information is protected by the Federal Confidentiality of Alcohol and Drug Abuse Patient Records regulations: The Federal rules restrict any use of the information to criminally investigate or prosecute any alcohol or drug abuse patient.[facility] Hospital[facility] the event this information is protected by the Federal Confidentiality of Alcohol and Drug Abuse Patient Records regulations: The Federal rules restrict any use of the information to criminally investigate or prosecute any alcohol or drug abuse patient.[facility] the event this information is protected by the Federal Confidentiality of Alcohol and Drug Abuse Patient Records regulations: The Federal rules restrict any use of the information to criminally investigate or prosecute any alcohol or drug abuse patient.[facility] the event this information is protected by the Federal Confidentiality of Alcohol and Drug Abuse Patient Records regulations: The Federal rules restrict any use of the information to criminally investigate or prosecute any alcohol or drug abuse patient.[facility] the event this information is protected by the Federal Confidentiality of Alcohol and Drug Abuse Patient Records regulations: The Federal rules restrict any use of the information to criminally investigate or prosecute any alcohol or drug abuse patient.[facility] the event this information is protected by the Federal Confidentiality of Alcohol and Drug Abuse Patient Records regulations: The Federal rules restrict any use of the information to criminally investigate or prosecute any alcohol or drug abuse patient.[facility] FOR RECORDS PERTAINING TO PATIENTS WHO ARE OR HAVE BEEN ENROLLED IN A CHEMICAL DEPENDENCY/SUBSTANCEABUSE PROGRAM, SOME INFORMATION MAY BE OMITTED. This clinical summary was aggregated from multiple sources. Caution should be exercised in using it in the provision of clinical care. This summary normalizes information from multiple sources, and as a consequence, information in this document may materially change the coding, format and clinical context of patient data. In addition, data may be omitted in some cases. CLINICAL DECISIONS SHOULD BE BASED ON THE PRIMARY CLINICAL RECORDS. [facility] [employer] [employer] [facility]. provides no warranty or guarantee of the accuracy or completeness of information in this document.
[2023-07-01 09:42] VITALS: BP 110/65; PULSE 65; RESP 14; TEMP 36.7; O2SAT 96; BMI 31.4
[2023-07-01] MEDS: Lidocaine 2% (5ml sdv) 5 ML VIAL.MPF INFILT (10:11)
[2023-07-01 10:37] VITALS: BP 145/60; PULSE 68; RESP 14; O2SAT 98
[2023-07-01 10:40] LABS: Cytology, Body Fluid / CSF SEE PATHOLOGY REPORT
[2023-07-01 11:06] LABS: Appearance CSF (character) CLEAR (Clear); CSF Color COLORLESS (Colorless); RBC Count, Spinal Fluid 0 /mm-3 (None seen); Tested Tube # 3; White Count, CSF 0 /mm-3 (0 - 5)
[2023-07-01 11:31] VITALS: BP 114/65; PULSE 70; RESP 16; O2SAT 99
[2023-07-01 11:34] LABS: Glucose Spinal Fluid 57 mg/dL (40-75)
[2023-07-02 10:24] LABS: Pathologist Review Reviewed
[2023-07-03 18:08] LABS: Myelin Basic Protein, MBP 5.4 ng/mL (0.0-3.7); VDRL Cerebrospinal Fluid Non Reactive (Non Rea:<1:1)
[2023-07-04 05:08] LABS: CSF Albumin 17 mg/dL (8-37); CSF IgG 2.3 mg/dL (0.0-6.7); CSF IgG Index 0.5 (0.0-0.7); CSF:Serum Albumin Index 4 (0-8); IgG Serum 1188 mg/dL (586-1602); IgG Synthesis Rate, CSF -3.4 mg/day (-9.9 TO +3.3); IgG/Alb Ratio, CSF 0.14 (0.00-0.25); Serum Albumin 4.4 g/dL (3.9-4.9)
== END | disposition home or self-care (01) ==
LOC: RAD 08:46
PROVIDERS: Referring Provider Psychiatry & Neurology Neurology; Visit Provider Psychiatry & Neurology Neurology
DX: R53.82 Chronic fatigue, unspecified (principal); R26.9 Unspecified abnormalities of gait and mobility; R25.2 Cramp and spasm
CPT/HCPCS: 36415; 62328; 82040; 82042; 82784; 82945; 83873; 83916; 84157; 86592; 87070; 87205; 88108; 88313; 89050; 89051

== ENCOUNTER 2023-08-22 14:27 | Emergency (ER) | payer MEDICARE, MEDICAID, SELFPAY ==
[2023-08-22] VITALS (8 sets, daily range): BP systolic 94–138; BP diastolic 67–90; PULSE 71–121; RESP 12–23; TEMP 35.6–36.6; O2SAT 94–98; BMI 31.1
--- NOTE | 2023-08-22 14:29 | ED.RN ---
Pt came in to triage being wheeled by family member. RO asked that pt fill out a form to be seen and informed pt that we were busy but we'd get her seen shortly. Pt then began shaking violently, slid out of her wheelchair and started yelling that she was having a seizure. This RN came out from triage'ing another pt and asked what was going on. Pt again yelled that she was having a seizure while flopping her arms and legs around, stated that she recently was dx with MS and this has been happening. This RN attempted to get pt to safety but pt continued behavior. This RN explained that she was coherent and that was atypical of seizure activity. Pt became angry, told her family member to start recording this! This is bullshit! This RN asked pt to do what she could to follow commands and help us get her safe. With assistance of other staff members we took pt to room 1 for immediate evaluation.
--- NOTE | 2023-08-22 15:05 | ED.RN ---
PT WANTS OUT OF THIS [facility] , PT CALLED THIS RN IN [place]. THIS RN DOESNT KNOW WHAT SHE IS DOING. WANTS EVERYTHING VIDEO. PT LOOKED AT THIS RN IF I HAD A...I'D YOU . IM GOING TO BE RICH, IM SUING THIS HOSPITAL.
[2023-08-22] MEDS: Lorazepam 2 MG/ML WCH Syringe 1 MG IV (15:10)
--- NOTE | 2023-08-22 15:10 | EX.ED.DYSGE1 ---
HPI History of Present Illness Chief Complaint: Seizure Detail of Chief Complaint: Shaking and twitching since noon Informant: patient Narrative Narrative: Patient presents to the emergency department with complaint of shaking uncontrollably since about noon today patient recently diagnosed with MS via spinal tap in June. Patient not currently on any medications for MS. She does have history of hypothyroidism as well as psoriatic arthritis. She denies recent illness. Patient states she has been under a lot of stress lately. She states she may have pseudobulbar affect because today she was laughing and crying uncontrollably. Patient denies illicit drug use other than she uses THC Gummies. [facility] Medical History (Updated 08/22/23 @ 17:[address] Kuldeep Tabares, ) Anxiety GERD (gastroesophageal reflux disease) Hypothyroidism Tachycardia Home Medications baclofen 10 mg tablet 10 mg PO TID PRN muscle spasm #90 tabs 05/01/23 [Rx Last Taken Unknown] trazodone 50 mg tablet 50 mg PO QHS PRN insomnia #30 tabs 05/01/23 [Rx Last Taken Unknown] flurbiprofen 100 mg tablet 100 mg PO TID PRN pain #90 tabs 05/28/23 [Rx Last Taken Unknown] cetirizine 10 mg tablet 10 mg PO DAILY 07/01/23 [History Last Taken Unknown] estradiol 2 mg tablet 2 mg PO DAILY 07/01/23 [History Last Taken Unknown] levothyroxine 25 mcg tablet 37.5 mcg PO DAILY 07/01/23 [History Last Taken Unknown] metoprolol succinate 100 mg tablet,extended release 24 hr 100 mg PO DAILY 07/01/23 [History Last Taken Unknown] omeprazole 40 mg capsule,delayed release 40 mg PO DAILY 07/01/23 [History Last Taken Unknown] venlafaxine 225 mg tablet,extended release 24 hr 225 mg PO DAILY 07/01/23 [History Last Taken Unknown] lorazepam 1 mg tablet (Ativan) 1 mg PO TID PRN anxiety #10 tabs 08/22/23 [Rx Last Taken Unknown] Allergy/AdvReac Type Severity Reaction Status Date / Time No Known Allergies Allergy Verified 07/01/23 09:37 Social History Smoking Status: Former smoker ROS ROS ED Review of Systems ROS Unobtainable: other Constitutional Constitutional ED: Reports lethargy; Denies chills, fever(s), sweats or weight loss Eyes Eyes: Denies blurry vision, change in vision or diplopia ENT ENT ED: Denies rhinorrhea or sore throat Cardiovascular Cardiovascular: Denies chest pain, orthopnea or racing heartbeat Respiratory/Chest Respiratory/Chest: Denies cough, dyspnea, dyspnea on exertion, orthopnea or sputum Gastrointestinal Gastrointestinal: Denies abdominal pain, diarrhea, nausea or vomiting Genitourinary Genitourinary ED: Denies dysuria, hematuria or urinary frequency Musculoskeletal Musculoskeletal: Denies arthralgias, back pain, myalgias or neck pain Integumentary Denies abscess, Abrasions or rash Neurologic Neurologic: Reports other Details: Shaking and twitching ; Denies headache(s) or weakness Psychiatric Psychiatric: Denies anxiety, depression or suicidal thoughts Endocrine Endocrinology: Denies polydipsia, polyphagia or polyuria Hematologic/Lymphatic Hematologic/Lymphatic: Denies easy bleeding, easy bruising or lymphadenopathy Allergic/Immunologic Allergic/Immunologic ED: Denies mouth swelling, tongue swelling or urticaria EXAM Physical Exam Const Vital Signs: 08/22/23 14:28 08/22/23 15:16 08/22/23 15:46 Temperature 96.1 F L Temperature Source Temporal Pulse Rate 121 H 95 81 Respiratory Rate 22 H 20 H 23 H Blood Pressure 138/90 H 124/73 H 110/75 Blood Pressure Mean 106 90 86 Pulse Ox 98 94 Oxygen Delivery Method Room Air Room Air 08/22/23 16:08 08/22/23 17:10 08/22/23 17:27 Temperature Temperature Source Pulse Rate 74 73 71 Respiratory Rate 20 H 12 17 Blood Pressure 110/75 94/67 96/75 Blood Pressure Mean 86 76 82 Pulse Ox 98 98 97 Oxygen Delivery Method Room Air Room Air Room Air 08/22/23 18:25 08/22/23 18:27 Temperature 98 F Temperature Source Pulse Rate 85 82 Respiratory Rate 20 H 19 H Blood Pressure 114/76 114/76 Blood Pressure Mean 88 88 Pulse Ox 95 95 Oxygen Delivery Method Room Air Positive well nourished and well developed General Appearance ED: well developed and NAD HEENT Reports TM's clear and moist mucous membranes normocephalic and atraumatic; Negative for trauma or tenderness Tympanic Membrane ED: Yes TM's clear Eyes PERRL and EOMs intact bilaterally General Eye ED: Negative for pale conjunctiva or scleral icterus Neck no lymphadenopathy, supple and no JVD General: Negative for tenderness Chest Wall inspection of chest normal and palpation of chest normal Chest: Negative for tenderness Resp normal respiratory effort and clear to auscultation bilaterally Effort and Inspection: Negative for respiratory distress or pain with movement Auscultation: Negative for rhonchi, wheezes or diminished lung sounds Cardio regular rate, regular rhythm, S1 normal heart sound, S2 normal heart sound and no murmurs Peripheral Pulses: pulses 2+ throughout GI normal to inspection, nondistended, normoactive bowel sounds, soft to palpation, non-tender, non-distended and no masses Back/Spine no CVA tenderness and no thoracic nor lumbar tenderness Extremity normal to inspection General Extremety ED: Negative for edema General Extremity: Negative for edema Neuro oriented x3, CN's II-XII intact bilaterally, no sensory deficits noted and gait normal Neuro Narrative: Whole body shaking and twitching uncontrollably but able to speak to me. She is somewhat diaphoretic. Her fingers are extended and spasming. Sensorium / Orientation: awake, alert, oriented to person, oriented to place and oriented to time Motor Exam: strength 5/5 throughout and strength abnormal Psych mental status grossly normal Skin no rashes or lesions noted and no wounds MDM MDM MDM Narrative Medical decision making narrative: Patient presents with abnormal movements of her body with recent within the last 2 months diagnosis of MS. She has been under increased stress of late. Clinically appeared like she was having a panic attack as she had a hyperextension of her digits and she was hyperventilating and twitching uncontrollably while mentation was normal. Patient admits to only marijuana use. IV line established. She was given Ativan 1 mg IV and her symptoms resolved. CBC with differential obtained showed a white count 6.8 with hemoglobin 11.7 platelet count of 380. Chemistries were unremarkable. Urinalysis was normal. Talk screen positive for cocaine as well as MDMA and THC. When I discussed this with the patient she states that she had just picked up her pet monkey from the vet and while in the car of the monkey was noted to have something in her hand that look to be in the baggy and it had a square substance in the bag so patient decided to eat it. At this point I suspect patient may have had a panic attack or may have had drug-induced agitation. I am not convinced she is having a MS exacerbation or flare. Will give patient a prescription for as needed Ativan as needed for anxiety and she is advised to avoid illicit drug use. I attempted to contact her neurologist, Dr. Chadwick, to discuss further however was not successful in getting a call back. While in the ED patient was able to get up and ambulate and urinate. She did have a blood pressures trending down into the 90 systolic. Will give a liter saline bolus and reevaluate prior to discharge. Lab Data Attestation: I reviewed the patient's lab results. Labs: Laboratory Results - last 24 hr 08/22/23 08/22/23 14:35 16:22 WBC 6.8 RBC 4.30 Hgb 11.7 L Hct 37.7 MCV 87.7 MCH 27.2 MCHC 31.0 L RDW Std Deviation 48.1 H RDW Coeff of Wilber 14.9 H Plt Count 380 MPV 11.1 Sodium 138 Potassium 3.5 Chloride 108 H Carbon Dioxide 20.0 L Anion Gap 10 BUN 8 Creatinine 1.06 H Estim Creat Clear Calc 71.53 Est GFR (MDRD) Af Amer 71 Est GFR (MDRD) Non-Af 59 L BUN/Creatinine Ratio 7.5 L Glucose 108 H Calcium 9.7 Urine Color Yellow Urine Clarity Sl. Cloudy Urine pH 5.0 Ur Specific [place] 1.030 Urine Protein 15 H Urine Glucose (UA) Normal Urine Ketones 5 H Urine Occult Blood 10 H Urine Nitrite Negative Urine Bilirubin Negative Urine Urobilinogen 1 H Ur Leukocyte Esterase Negative Urine RBC 0 SEEN Urine WBC 0-5 SEEN Ur Squamous Epith Cells 0-5 SEEN Urine Bacteria 0 SEEN Urine Mucus 0 SEEN Urine Opiates Screen NEGATIVE Urine Methadone Screen NEGATIVE Ur Barbiturates Screen NEGATIVE Ur Phencyclidine Scrn NEGATIVE Ur Amphetamines Screen NEGATIVE MDMA (Ecstasy) Screen POSITIVE H U Benzodiazepines Scrn NEGATIVE Urine Cocaine Screen POSITIVE H U Cannabinoids Screen POSITIVE H Ur Drug Screen Comment Discharge Plan Triage Chief Complaint: Seizure ED Provider: Kuldeep Tabares Dx/Rx/DC Orders Clinical Impression: Illicit drug use, Anxiety Instructions: ED Anxiety Reaction, ED Drug Abuse Prescriptions: New lorazepam [Ativan] 1 mg tablet 1 mg PO TID PRN (Reason: anxiety) Qty: 10 0RF No Action baclofen 10 mg tablet 10 mg PO TID PRN (Reason: muscle spasm) Qty: 90 5RF trazodone 50 mg tablet 50 mg PO QHS PRN (Reason: insomnia) Qty: 30 5RF flurbiprofen 100 mg tablet 100 mg PO TID PRN (Reason: pain) Qty: 90 4RF estradiol 2 mg tablet 2 mg PO DAILY Patient Comments: take 1 tablet by mouth once daily levothyroxine 25 mcg tablet 37.5 mcg PO DAILY Patient Comments: take 1 tablet by mouth once daily metoprolol succinate 100 mg tablet extended release 24 hr 100 mg PO DAILY Patient Comments: take 1 tablet by mouth once daily omeprazole 40 mg capsule,delayed release(DR/EC) 40 mg PO DAILY Patient Comments: take 1 capsule by mouth once daily venlafaxine 225 mg tablet extended release 24hr 225 mg PO DAILY Patient Comments: take 1 tablet by mouth once daily with food cetirizine 10 mg tablet 10 mg PO DAILY Patient Comments: take 1 tablet by mouth daily Primary Care Provider: Care Physician,No Primary Referrals: Leonardo Roberson MD [Non-Staff -Ordering Privileges] - 3-5 Days Care Physician,No Primary [Primary Care Provider] - Disposition Disposition: Home, Self Care Discharge Date/Time: 08/22/23 19:21
[2023-08-22] MEDS: 0.9% Normal Saline (500mL Bag) 500 ML 1000 ML IV (15:11)
--- NOTE | 2023-08-22 15:13 | ED.RN ---
pt laughing and talking through seizure.
--- NOTE | 2023-08-22 15:14 | ED.RN ---
during triage pt was able to stop seizing so we didnt cut her shirt off.
--- NOTE | 2023-08-22 15:24 | ED.RN ---
pt and visitor also complaining about officer Manfred, he was just going to let me fall .
[2023-08-22 15:28] LABS: Hematocrit 37.7 % (37-47); Hemoglobin 11.7 g/dL (12.0-15.0); Mean Corpuscular Hgb 27.2 pg (27.0-32.0); Mean Corpuscular Volume 87.7 fL (81-99); Mean Platelet Vol. 11.1 fl (6.2-12.0); Platelet Count 380 K/mm3 (150-450); RBC Distribution Width CV 14.9 % (11.6-14.6); RBC Distribution Width SD 48.1 fl (35.1-43.9); White Blood Count 6.8 K/mm3 (4.4-11.0)
--- NOTE | 2023-08-22 15:28 | ED.RN ---
pt requesting a blanket, im going to try and sleep, can you turn the lights off . anything said visitor would argue and laugh at.
--- NOTE | 2023-08-22 15:42 | ED.RN ---
visitor with pt wanted to know how long everything would be. this RN stated she would try to keep him updated. visitor states he is never happy no matter what hospital she is at .
[2023-08-22 16:00] LABS: Anion Gap 10 (5-15); BUN 8 mg/dL (7-18); BUN/Creat Ratio 7.5 RATIO (10-20); Calcium,Total 9.7 mg/dL (8.5-10.1); Chloride 108 mmol/L (98-107); Creatinine, Serum 1.06 mg/dL (0.55-1.02); EST Glomerular Filtration Rate 59 mL/min (>60); Est Glom Filt Rate - Afr Amer 71 mL/min (>60); Estimated Creatinine Clearance 71.53 ml/min; Glucose 108 mg/dL (74-106); Potassium 3.5 mmol/L (3.5-5.1); Sodium Level 138 mmol/L (136-145)
--- NOTE | 2023-08-22 16:05 | ED.RN ---
pt resting with eyes closed, pulse ox put back on pt's finger. pt states im cold . pt given another blanket given.
[2023-08-22 16:30] LABS: Bacteria 0 SEEN /hpf (None Seen); Mucous, Urine 0 SEEN /hpf (<or=2+); Red Blood Cells-Urine 0 SEEN /hpf (0-5)
[2023-08-22 16:47] LABS: Color, Urine Yellow (Yellow); Glucose, Dipstick Normal (Normal); Ketone-Dipstick 5 mg/dl (Negative); Leukocyte Esterase-Dipstick Negative /ul (Negative); Nitrite-Dipstick Negative (Negative); Occult Blood-Urine 10 /ul (Negative); Protein-Dipstick 15 mg/dl (Negative); Urine Bilirubin Dipstick Negative (Negative); Urine Clarity Sl. Cloudy (Clear); Urine Urobilinogen 1 mg/dl (Normal)
--- NOTE | 2023-08-22 17:06 | ED.RN ---
PTS FRIEND TOLD US TO CALL HER FRIEND, JESSICA ATWOOD, WHEN/IF PT NEEDS A RIDE HOME. PT HAS THE PHONE NUMBER.
[2023-08-22 17:07] LABS: Squamous Epithelial Cells - UA 0-5 SEEN /hpf (5-10); White Blood Cells 0-5 SEEN /hpf (0-5)
[2023-08-22 17:09] LABS: Amphetamine Urine VISTA NEGATIVE (<1000 ng/mL); Barbiturate Urine VISTA NEGATIVE (< 200 ng/mL); Benzodiazepine Urine VISTA NEGATIVE (< 200 ng/mL); Cocaine Urine VISTA POSITIVE (< 300 ng/mL); Ecstacy Urine VISTA POSITIVE (< 500 ng/mL); Methadone Urine VISTA NEGATIVE (< 300 ng/mL); PCP Urine VISTA NEGATIVE (< 25 ng/mL); THC Urine VISTA POSITIVE (< 50 ng/mL); Vista UDS pH Range 4
[2023-08-22] MEDS: 0.9% Normal Saline (1000mL) 1,000 ML 999 ML IV (17:30)
--- NOTE | 2023-08-22 18:39 | ED.RN ---
per pt cousin ramo called for a ride using pt phone with pt present. cousin will arrive approx [phone].
--- NOTE | 2023-08-22 19:20 | ED.RN ---
pt assisted to car by wheelchair with cousin.
== END 2023-08-22 19:21 | disposition home or self-care (01) ==
PROVIDERS: Emergency Provider Emergency Medicine; Visit Provider Emergency Medicine
DX: F41.9 Anxiety disorder, unspecified (principal); G35 Multiple sclerosis; L40.50 Arthropathic psoriasis, unspecified; R56.9 Unspecified convulsions; E03.9 Hypothyroidism, unspecified; Z79.890 Hormone replacement therapy; Z79.899 Other long term (current) drug therapy; Z87.891 Personal history of nicotine dependence
CPT/HCPCS: 80048; 80307; 81001; 85027; 96361; 96374; 99283; J7030; A4216